=== PATIENT | male | born 1950 | race Caucasian/White ===

== ENCOUNTER → 2017-09-11 | Outpatient (CLI) | payer OTHER ==
[~2017-09-11] MED LIST: ACET250 PO; ALBIPROI; ALBU.083IS; ALBU.083IS IH; ALBU3IS INH; ALBU90OI INH; ALBU90OI6; ALBU90OI6 INH; ALBU90OI61 INH; ALPR.5 PO; ALPR.5CR PO; AMIT10; AMOCLA875 PO; AMOX875 PO; ASACOL HD800 MG; ASACOL HD800 MG PO; ASCO1ER PO; ASCO500; ASCO500 PO; ASPI325 PO; ASPI81CH PO; AZIT500 PO; Apriso0.375 GM; Apriso0.375 GM PO; BACL10 PO; BENADRYL25 MG PO; BISA10S; BUDE.25; BUDE.25 NEB; BUME2; BUME2 PO; CEFD300 PO; CEFP200 PO; CEPH500 PO; CHOL10002 PO; CIPR500 PO; CLOT1TC TOP; CODACE30 PO; COMBIVENT RESPIM4 GM; CRANBERRY PLUS1 EAC1 PO; CYAN1000 PO; Calmoseptine Oi71 GM TOP; Coumadin5 MG PO; DIAZ10; DIAZ10 PO; DIAZ2 PO; DIAZ5; DIAZ5 PO; DIPH50; DIPH50 PO; DOCSEN; DOCU100; DOCU100 PO; DOXE0.5 PO; DOXERCALCIFER0.5 MCG PO; DOXERCALCIFEROL1 MCG; DOXERCALCIFEROL1 MCG PO; DOXY100 PO; ERGO400 PO; ESCI10; ESCI10 PO; ESCI20 PO; ESCI5 PO; FERR325 PO; FISH1000 PO; FOLI1; FOLI1 PO; FURO20 PO; FURO40 PO; Ferosul325 MG PO; Ferrous Sulfat325 M2 PO; Ferus150 MG; Ferus150 MG PO; GABA300 PO; GLIP5; GUAI600T33 PO; GUAIFENESIN ER600 MG PO; HYDACE10B PO; HYDACE5; HYDACE5 PO; HYDACE7.5; HYDACE7.5 PO; HYDR-86 PO; IPRA.03NI; IPRAIS NEB; LAVAP17G PO; LEVFLO500 PO; LOPE2C; LOPE2C PO; LORA10 PO; LORA10ER; LORA10ER PO; LORA1SY PO; LOVA40; LOVA40 PO; LOVAZA; LOVAZA PO; Loradamed10 MG PO; Loratadine10 MG; MAGCHL64ER PO; MELA3; MESA400ER PO; METF500; METF500 PO; METF500C PO; METO10 PO; MIRALAX17 GM PO; MOMENI; MONT10T PO; MULVIT; MULVITA; MULVITA PO; MULVITMIND PO; Micro-K10 MEQ PO; NEBULIZERS IH; NITR100 PO; NITR100CA PO; NITR50; NITR50 PO; NYST100P; NYST100P TOP; NYST100TO; NYST100TO TOP; NYSTRITC TOP; Nitrofurantoin50 MG PO; OMEG1CAP30; OMEG1CAP30 PO; ONDA4; ONDA4 PO; ONDA4ODT MM; ONDA4ODT PO; ONDA4ODT SL; OXYC5; PIOG45 PO; POLY17UD PO; POTA10T PO; POTCHL10ER PO; PRED1; PREDNISONE; PROM25 PO; PSEU120ER; PSEU120ER PO; PSEU30; PSEU30 PO; RANI150; RXHYDACE PO; SACC250C; SENNP; SILSUL1TC TOP; SUDAFED; SULTRISS; Sudafed PO; Sudogest30 MG PO; Suppository1 EACH; TEMA15; TIOT18 INH; TRAZ50; TRAZ50 PO; VICODIN ES 7.51 EACH PO; Ventolin Soln3 ML INH; Vitamin C100 M1 PO; Vitamin C100 MG; WARF1; WARF1 PO; WARF2 PO; WARF4; WARF4 PO; WARF5; WARF5 PO; WARF6; WARF6 PO; WARFARIN PO; ZOLP5; [UNRECOGNIZED DRUG - CODE] PO; [UNRECOGNIZED DRUG - CODE] TOP; [UNRECOGNIZED DRUG - OTHER]; [UNRECOGNIZED DRUG - OTHER]; [UNRECOGNIZED DRUG - OTHER] PO; [UNRECOGNIZED DRUG - REMARK]; [UNRECOGNIZED DRUG - REMARK]; [UNRECOGNIZED DRUG - REMARK]; [UNRECOGNIZED DRUG - REMARK]
== END ==
LOC: LAB 15:20
DX: E11.42 Type 2 diabetes mellitus with diabetic polyneuropathy (principal)
CPT/HCPCS: 83036

== ENCOUNTER 2017-11-14 15:26 | Emergency (ER) | payer OTHER ==
[~2017-11-14] VITALS: Ht 175.3 cm; Wt 81.7 kg
[~2017-11-14 15:26] MED LIST changes: -ALBU90OI6; -ALPR.5 PO; -ALPR.5CR PO; -AMOX875 PO; -ASPI325 PO; -ASPI81CH PO; -AZIT500 PO; -BACL10 PO; -BUDE.25; -BUDE.25 NEB; -COMBIVENT RESPIM4 GM; -DIAZ5 PO; -DOCU100 PO; -DOXERCALCIFER0.5 MCG PO; -DOXERCALCIFEROL1 MCG PO; -Ferosul325 MG PO; -Ferrous Sulfat325 M2 PO; -GABA300 PO; -GUAIFENESIN ER600 MG PO; -LORA1SY PO; -METF500C PO; -MIRALAX17 GM PO; -ONDA4ODT PO; -SACC250C; -WARF1 PO; -WARFARIN PO; -[UNRECOGNIZED DRUG - CODE] PO
[2017-11-14 15:49] LABS: PCO2 Arterial 48.8 mmHg (35-45); PO2 Arterial 86.8 mmHg (80-100); pH Blood Arterial 7.37 (7.35-7.45)
[2017-11-14] MEDS ORDERED: ACET250 PO (16:07)
[2017-11-14] MEDS ORDERED: FURO40 PO (16:07)
[2017-11-14] MEDS ORDERED: DOXE0.5 PO (16:08)
[2017-11-14] MEDS ORDERED: ONDA4ODT (16:09)
[2017-11-14] MEDS ORDERED: ALBU90OI61 INH (16:11)
[2017-11-14] MEDS ORDERED: Apriso0.375 GM PO (16:12)
[2017-11-14] MEDS ORDERED: MONT10T PO (16:13)
[2017-11-14] MEDS ORDERED: GABA300 PO (16:14)
[2017-11-14] MEDS ORDERED: NITR100 PO (16:15)
[2017-11-14] MEDS ORDERED: BACL10 PO (16:16)
[2017-11-14] MEDS ORDERED: NYSTRITC TOP (16:17)
[2017-11-14 16:21] LABS: BASOPHILS ABSOLUTE AUTO 0.03 K/mm3 (0.00-0.23); BASOPHILS PERCENT AUTO 0 % (0-2); EOSINOPHILS ABSOLUTE AUTO 0.28 K/mm3 (0.00-0.68); EOSINOPHILS PERCENT AUTO 2 % (0-6); Hematocrit 30.9 % (37.0-53.0); Hemoglobin 8.8 g/dL (13.5-17.5); IMMATURE GRAN ABSOLUTE AUTO 0.15 K/mm3 (0.00-0.10); IMMATURE GRAN PERCENT AUTO 1 % (0-1); LYMPHOCYTES ABSOLUTE AUTO 1.24 K/mm3 (0.84-5.20); LYMPHOCYTES PERCENT AUTO 11 % (21-46); MONOCYTES ABSOLUTE AUTO 0.96 K/mm3 (0.16-1.47); MONOCYTES PERCENT AUTO 8 % (4-13); Mean Corpuscular HGB 23.9 pg (26.0-34.0); Mean Corpuscular HGB Conc 28.5 g/dL (31.5-36.5); Mean Corpuscular Volume 84 fL (80-100); Mean Platelet Volume 8.9 fL (9.1-12.4); NEUTROPHILS ABSOLUTE AUTO 9.14 K/mm3 (1.96-9.15); NEUTROPHILS PERCENT AUTO 77 % (41-73); Platelet Count 667 K/mm3 (150-400); RDW Coefficient Variation 16.4 % (11.7-14.2); RDW Standard Deviation 50.2 fL (35.1-46.3); Red Blood Cell Count 3.68 M/mm3 (4.30-5.90)
[2017-11-14 16:41] LABS: Alanine Aminotransfer (ALT/SGP 29 U/L (12-78); Albumin, Blood 2.8 g/dL (3.4-5.0); Albumin/Globulin Ratio 0.4 (0.8-1.8); Alk Phos 101 U/L (50-136); Anion Gap 7 mmol/L (6-16); Aspartate Aminotrans (AST/SGOT 37 U/L (12-37); Bilirubin, Total 0.4 mg/dL (0.1-1.0); Blood Urea Nitrogen 11 mg/dL (8-24); Bun/Creatinine Ratio 28.5 (12.0-20.0); CO2, Blood 30 mmol/L (21-32); Calcium, Blood 9.3 mg/dL (8.5-10.1); Chloride, Blood 101 mmol/L (98-108); Creatinine, Blood 0.39 mg/dL (0.60-1.20); Globulin, Blood 6.5 g/dL (2.2-4.0); Glomerular Filtration Rate >60 (60-); Glucose, Blood 90 mg/dL (70-99); Magnesium, Blood 2.3 mg/dL (1.6-2.4); Potassium, Blood 3.6 mmol/L (3.5-5.5); Sodium, Blood 138 mmol/L (136-145); Total Protein, Blood 9.3 g/dL (6.4-8.2); Troponin I <0.015 ng/mL (0.000-0.040)
[2017-11-14 16:56] LABS: Source, Urine Catheter
[2017-11-14 16:59] LABS: Appearance, Urine Cloudy (Clear); Bilirubin, Urine Neg (Neg); Blood, Urine 5+ (Neg); Color, Urine Yellow (P-Yellow); Glucose Qualitative, Urine Neg (Neg); Ketones, Urine Neg (Neg); Leukocyte Esterase, Urine 3+ (Neg); Nitrite, Urine Pos (Neg); Protein, Urine 2+ (Neg); Urobilinogen, Urine NORM (Normal)
[2017-11-14 17:11] LABS: White Blood Cells, Urine 50-100 /hpf (0-5)
[2017-11-14 17:12] LABS: Squamous Epithelial Cells Few /hpf (Few)
[2017-11-14 17:13] LABS: Bacteria Many /hpf
[2017-11-14] MEDS ORDERED: CEFP200 PO (17:36)
== END 2017-11-15 19:58 | disposition home or self-care (01) ==
LOC: ER 15:26
PROVIDERS: Emergency Medicine
DX: J44.1 Chronic obstructive pulmonary disease with (acute) exacerbation (principal); N39.0 Urinary tract infection, site not specified; E11.9 Type 2 diabetes mellitus without complications; D64.9 Anemia, unspecified; E78.5 Hyperlipidemia, unspecified; Z86.718 Personal history of other venous thrombosis and embolism; Z79.899 Other long term (current) drug therapy; Z79.84 Long term (current) use of oral hypoglycemic drugs; Z79.01 Long term (current) use of anticoagulants
CPT/HCPCS: 36415; 36600; 71045; 80053; 81001; 82803; 83605; 83735; 83880; 84484; 85025; 87077; 87086; 87186; 93005; 93010; 94644; 99283

== ENCOUNTER 2017-11-26 13:01 | Inpatient (IN) | payer OTHER ==
[~2017-11-26] VITALS: Ht 177.8 cm; Wt 91.2 kg
[~2017-11-26 13:01] MED LIST changes: +BACL10 PO; +DOXERCALCIFEROL1 MCG PO; +GABA300 PO; +METF500C PO; +ONDA4ODT PO
[2017-11-26 14:22] LABS: BASOPHILS ABSOLUTE AUTO 0.04 K/mm3 (0.00-0.23); BASOPHILS PERCENT AUTO 0 % (0-2); EOSINOPHILS ABSOLUTE AUTO 0.38 K/mm3 (0.00-0.68); EOSINOPHILS PERCENT AUTO 3 % (0-6); Hematocrit 25.8 % (37.0-53.0); Hemoglobin 6.8 g/dL (13.5-17.5); IMMATURE GRAN ABSOLUTE AUTO 0.05 K/mm3 (0.00-0.10); IMMATURE GRAN PERCENT AUTO 0 % (0-1); LYMPHOCYTES ABSOLUTE AUTO 1.05 K/mm3 (0.84-5.20); LYMPHOCYTES PERCENT AUTO 9 % (21-46); MONOCYTES ABSOLUTE AUTO 0.79 K/mm3 (0.16-1.47); MONOCYTES PERCENT AUTO 7 % (4-13); Mean Corpuscular HGB 23.8 pg (26.0-34.0); Mean Corpuscular HGB Conc 26.4 g/dL (31.5-36.5); Mean Platelet Volume 9.1 fL (9.1-12.4); NEUTROPHILS PERCENT AUTO 80 % (41-73); Platelet Count 532 K/mm3 (150-400); RDW Coefficient Variation 18.8 % (11.7-14.2); Red Blood Cell Count 2.86 M/mm3 (4.30-5.90); White Blood Cell Count 11.31 K/mm3 (4.00-11.30)
[2017-11-26 14:23] LABS: Mean Corpuscular Volume 90 fL (80-100)
[2017-11-26 14:40] LABS: Alanine Aminotransfer (ALT/SGP 17 U/L (12-78); Albumin, Blood 2.9 g/dL (3.4-5.0); Albumin/Globulin Ratio 0.5 (0.8-1.8); Alk Phos 65 U/L (50-136); Anion Gap 5 mmol/L (6-16); Aspartate Aminotrans (AST/SGOT 15 U/L (12-37); Bilirubin, Total 0.2 mg/dL (0.1-1.0); Blood Urea Nitrogen 14 mg/dL (8-24); CO2, Blood 35 mmol/L (21-32); Calcium, Blood 8.7 mg/dL (8.5-10.1); Chloride, Blood 99 mmol/L (98-108); Creatinine, Blood 0.37 mg/dL (0.60-1.20); Globulin, Blood 5.4 g/dL (2.2-4.0); Glomerular Filtration Rate >60 (60-); Glucose, Blood 122 mg/dL (70-99); Potassium, Blood 3.4 mmol/L (3.5-5.5); Sodium, Blood 139 mmol/L (136-145); Total Protein, Blood 8.3 g/dL (6.4-8.2)
[2017-11-27 06:10] LABS: Hematocrit 27.7 % (37.0-53.0); Hemoglobin 7.9 g/dL (13.5-17.5); Mean Corpuscular HGB Conc 28.5 g/dL (31.5-36.5); Mean Corpuscular Volume 88 fL (80-100); Mean Platelet Volume 9.1 fL (9.1-12.4); Platelet Count 457 K/mm3 (150-400); RDW Coefficient Variation 18.1 % (11.7-14.2); RDW Standard Deviation 54.4 fL (35.1-46.3); Red Blood Cell Count 3.16 M/mm3 (4.30-5.90); White Blood Cell Count 7.37 K/mm3 (4.00-11.30)
[2017-11-27 06:26] LABS: Anion Gap 3 mmol/L (6-16); Blood Urea Nitrogen 10 mg/dL (8-24); Bun/Creatinine Ratio 33.2 (12.0-20.0); CO2, Blood 32 mmol/L (21-32); Calcium, Blood 8.2 mg/dL (8.5-10.1); Chloride, Blood 106 mmol/L (98-108); Glomerular Filtration Rate >60 (60-); Glucose, Blood 81 mg/dL (70-99); Potassium, Blood 4.3 mmol/L (3.5-5.5); Sodium, Blood 141 mmol/L (136-145)
[2017-11-27 08:55] LABS: Percent Saturation 7.8 % (20.0-50.0)
[2017-11-27 11:45] LABS: Source, Urine Catheter
[2017-11-27 11:56] LABS: Bilirubin, Urine Neg (Neg); Blood, Urine 5+ (Neg); Glucose Qualitative, Urine Neg (Neg); Ketones, Urine Neg (Neg); Leukocyte Esterase, Urine 3+ (Neg); Nitrite, Urine Pos (Neg); Protein, Urine 3+ (Neg); Urobilinogen, Urine NORM (Normal)
[2017-11-27 13:24] LABS: Appearance, Urine Cloudy (Clear); Color, Urine Yellow (P-Yellow)
[2017-11-27 13:26] LABS: Bacteria Many /hpf; Red Blood Cells, Urine TNTC /hpf (0-2); Squamous Epithelial Cells Not Seen /hpf (Few); White Blood Cells, Urine TNTC /hpf (0-5)
[2017-11-28 05:01] LABS: Hemoglobin 7.6 g/dL (13.5-17.5); Mean Corpuscular HGB 24.4 pg (26.0-34.0); Mean Corpuscular HGB Conc 28.1 g/dL (31.5-36.5); Mean Corpuscular Volume 87 fL (80-100); Mean Platelet Volume 9.3 fL (9.1-12.4); Platelet Count 464 K/mm3 (150-400); RDW Coefficient Variation 18.9 % (11.7-14.2); RDW Standard Deviation 56.5 fL (35.1-46.3); Red Blood Cell Count 3.11 M/mm3 (4.30-5.90); White Blood Cell Count 7.43 K/mm3 (4.00-11.30)
[2017-11-28 05:22] LABS: Anion Gap 6 mmol/L (6-16); Blood Urea Nitrogen 12 mg/dL (8-24); CO2, Blood 29 mmol/L (21-32); Calcium, Blood 8.8 mg/dL (8.5-10.1); Chloride, Blood 108 mmol/L (98-108); Glomerular Filtration Rate >60 (60-); Glucose, Blood 98 mg/dL (70-99); Sodium, Blood 143 mmol/L (136-145)
[2017-11-28 17:52] LABS: International Normalized Ratio 1.8; Prothrombin Time Results 19.1 Sec (9.7-11.5)
[2017-11-29 05:16] LABS: Hematocrit 29.9 % (37.0-53.0); Hemoglobin 8.4 g/dL (13.5-17.5); Mean Corpuscular HGB Conc 28.1 g/dL (31.5-36.5); Mean Corpuscular Volume 89 fL (80-100); Platelet Count 433 K/mm3 (150-400); RDW Standard Deviation 60.2 fL (35.1-46.3); Red Blood Cell Count 3.36 M/mm3 (4.30-5.90); White Blood Cell Count 6.02 K/mm3 (4.00-11.30)
[2017-11-29 05:34] LABS: International Normalized Ratio 1.79
[2017-11-30 05:11] LABS: International Normalized Ratio 3.06; Prothrombin Time Results 32.9 Sec (9.7-11.5)
[2017-12-01 05:31] LABS: International Normalized Ratio 3.34; Prothrombin Time Results 36.1 Sec (9.7-11.5)
== END 2017-12-01 12:40 | disposition home or self-care (01) | DRG 871 ==
LOC: ER 13:01 → PCU 15:48 → MEDS 15:48 → PCU 16:34 → MEDS 11-27 18:36
PROVIDERS: Emergency Medicine; Internal Medicine
DX: A41.9 Sepsis, unspecified organism (principal); G82.50 Quadriplegia, unspecified; J18.9 Pneumonia, unspecified organism; J96.01 Acute respiratory failure with hypoxia; Z96.0 Presence of urogenital implants; R65.20 Severe sepsis without septic shock; E87.6 Hypokalemia; D63.8 Anemia in other chronic diseases classified elsewhere; E11.9 Type 2 diabetes mellitus without complications; E78.5 Hyperlipidemia, unspecified; J44.9 Chronic obstructive pulmonary disease, unspecified; G47.33 Obstructive sleep apnea (adult) (pediatric); F32.9 Major depressive disorder, single episode, unspecified; Z86.718 Personal history of other venous thrombosis and embolism; T83.511D Infection and inflammatory reaction due to indwelling urethral catheter, subsequent encounter; Z88.2 Allergy status to sulfonamides; Z88.8 Allergy status to other drugs, medicaments and biological substances; Z88.1 Allergy status to other antibiotic agents; Z91.040 Latex allergy status; Z79.01 Long term (current) use of anticoagulants; Z79.84 Long term (current) use of oral hypoglycemic drugs; Z79.899 Other long term (current) drug therapy; Z99.3 Dependence on wheelchair
CPT/HCPCS: 36415; 36430; 71046; 80048; 80053; 81001; 82272; 82728; 82947; 83540; 83550; 83605; 83880; 85025; 85027; 85610; 86850; 86870; 86900; 86901; 86902; 86922; 87040; 87086; 87186; 93005; 93010; 94640; 94644; 94660; 94762; 96374; 99285; C9113; J0456; J0696; J2543; J2916; J7030; J7050; P9016

== ENCOUNTER 2018-01-19 11:35 | Inpatient (IN) | payer OTHER ==
[~2018-01-19] VITALS: Ht 175.3 cm; Wt 91.2 kg
[~2018-01-19 11:35] MED LIST changes: +DOXERCALCIFER0.5 MCG PO; -DOXERCALCIFEROL1 MCG PO; +WARFARIN PO
[2018-01-19 12:34] LABS: BASOPHILS ABSOLUTE AUTO 0.03 K/mm3 (0.00-0.23); BASOPHILS PERCENT AUTO 0 % (0-2); EOSINOPHILS PERCENT AUTO 3 % (0-6); Hematocrit 32.3 % (37.0-53.0); Hemoglobin 8.9 g/dL (13.5-17.5); IMMATURE GRAN ABSOLUTE AUTO 0.05 K/mm3 (0.00-0.10); IMMATURE GRAN PERCENT AUTO 1 % (0-1); LYMPHOCYTES ABSOLUTE AUTO 0.67 K/mm3 (0.84-5.20); LYMPHOCYTES PERCENT AUTO 9 % (21-46); MONOCYTES ABSOLUTE AUTO 0.54 K/mm3 (0.16-1.47); MONOCYTES PERCENT AUTO 7 % (4-13); Mean Corpuscular HGB 25.6 pg (26.0-34.0); Mean Corpuscular HGB Conc 27.6 g/dL (31.5-36.5); Mean Corpuscular Volume 93 fL (80-100); Mean Platelet Volume 9.3 fL (9.1-12.4); NEUTROPHILS ABSOLUTE AUTO 6.42 K/mm3 (1.96-9.15); NEUTROPHILS PERCENT AUTO 81 % (41-73); Platelet Count 445 K/mm3 (150-400); RDW Coefficient Variation 18.5 % (11.7-14.2); RDW Standard Deviation 61.3 fL (35.1-46.3); Red Blood Cell Count 3.47 M/mm3 (4.30-5.90); White Blood Cell Count 7.91 K/mm3 (4.00-11.30)
[2018-01-19 12:47] LABS: International Normalized Ratio 3.96; Prothrombin Time Results 37.7 Sec (9.7-11.5)
[2018-01-19 12:56] LABS: Alanine Aminotransfer (ALT/SGP 13 U/L (12-78); Albumin, Blood 3.3 g/dL (3.4-5.0); Albumin/Globulin Ratio 0.6 (0.8-1.8); Alk Phos 64 U/L (50-136); Anion Gap 5 mmol/L (6-16); Aspartate Aminotrans (AST/SGOT 22 U/L (12-37); Bilirubin, Total 0.4 mg/dL (0.1-1.0); Blood Urea Nitrogen 16 mg/dL (8-24); Bun/Creatinine Ratio 42.1 (12.0-20.0); CO2, Blood 35 mmol/L (21-32); Calcium, Blood 8.3 mg/dL (8.5-10.1); Chloride, Blood 98 mmol/L (98-108); Creatinine, Blood 0.38 mg/dL (0.60-1.20); Globulin, Blood 5.5 g/dL (2.2-4.0); Glomerular Filtration Rate >60 (60-); Glucose, Blood 91 mg/dL (70-99); Potassium, Blood 4.3 mmol/L (3.5-5.5); Sodium, Blood 138 mmol/L (136-145); Total Protein, Blood 8.8 g/dL (6.4-8.2); Troponin I <0.015 ng/mL (0.000-0.040)
[2018-01-19 13:49] LABS: PCO2 Arterial 64.5 mmHg (35-45); PO2 Arterial 74.4 mmHg (80-100); pH Blood Arterial 7.34 (7.35-7.45)
[2018-01-19 14:16] LABS: Source, Urine Catheter
[2018-01-19 14:25] LABS: Appearance, Urine Cloudy (Clear); Bilirubin, Urine Neg (Neg); Blood, Urine 5+ (Neg); Color, Urine Yellow (P-Yellow); Glucose Qualitative, Urine Neg (Neg); Ketones, Urine Neg (Neg); Leukocyte Esterase, Urine 3+ (Neg); Nitrite, Urine Pos (Neg); Protein, Urine 3+ (Neg); Specific Gravity, Urine 1.015 (1.003-1.022); Urobilinogen, Urine NORM (Normal)
[2018-01-19 15:00] LABS: Red Blood Cells, Urine TNTC /hpf (0-2); White Blood Cells, Urine TNTC /hpf (0-5)
[2018-01-19 15:01] LABS: Bacteria Not Seen /hpf; Squamous Epithelial Cells Not Seen /hpf (Few)
[2018-01-19] MEDS ORDERED: [UNRECOGNIZED DRUG - CODE] PO (17:27)
[2018-01-20 04:40] LABS: PCO2 Arterial 68.7 mmHg (35-45); pH Blood Arterial 7.35 (7.35-7.45)
[2018-01-20 05:40] LABS: BASOPHILS ABSOLUTE AUTO 0.02 K/mm3 (0.00-0.23); BASOPHILS PERCENT AUTO 0 % (0-2); EOSINOPHILS ABSOLUTE AUTO 0.18 K/mm3 (0.00-0.68); EOSINOPHILS PERCENT AUTO 3 % (0-6); Hematocrit 29.7 % (37.0-53.0); Hemoglobin 8.3 g/dL (13.5-17.5); IMMATURE GRAN ABSOLUTE AUTO 0.03 K/mm3 (0.00-0.10); IMMATURE GRAN PERCENT AUTO 1 % (0-1); LYMPHOCYTES ABSOLUTE AUTO 0.43 K/mm3 (0.84-5.20); LYMPHOCYTES PERCENT AUTO 7 % (21-46); MONOCYTES PERCENT AUTO 8 % (4-13); Mean Corpuscular HGB 26.5 pg (26.0-34.0); Mean Corpuscular HGB Conc 27.9 g/dL (31.5-36.5); Mean Corpuscular Volume 95 fL (80-100); Mean Platelet Volume 9.2 fL (9.1-12.4); NEUTROPHILS ABSOLUTE AUTO 4.81 K/mm3 (1.96-9.15); NEUTROPHILS PERCENT AUTO 81 % (41-73); Platelet Count 399 K/mm3 (150-400); RDW Coefficient Variation 18.2 % (11.7-14.2); RDW Standard Deviation 62.9 fL (35.1-46.3); Red Blood Cell Count 3.13 M/mm3 (4.30-5.90); White Blood Cell Count 5.97 K/mm3 (4.00-11.30)
[2018-01-20 06:01] LABS: Alanine Aminotransfer (ALT/SGP 14 U/L (12-78); Albumin/Globulin Ratio 0.6 (0.8-1.8); Alk Phos 63 U/L (50-136); Anion Gap 6 mmol/L (6-16); Aspartate Aminotrans (AST/SGOT 13 U/L (12-37); Bilirubin, Total 0.4 mg/dL (0.1-1.0); Blood Urea Nitrogen 16 mg/dL (8-24); Bun/Creatinine Ratio 36.4 (12.0-20.0); CO2, Blood 36 mmol/L (21-32); Calcium, Blood 8.2 mg/dL (8.5-10.1); Chloride, Blood 98 mmol/L (98-108); Creatinine, Blood 0.44 mg/dL (0.60-1.20); Glomerular Filtration Rate >60 (60-); Glucose, Blood 97 mg/dL (70-99); Potassium, Blood 3.6 mmol/L (3.5-5.5); Sodium, Blood 140 mmol/L (136-145)
[2018-01-20 06:02] LABS: Prothrombin Time Results 43.6 Sec (9.7-11.5)
[2018-01-20 06:04] LABS: International Normalized Ratio 4.62
[2018-01-21 05:29] LABS: Hematocrit 27.3 % (37.0-53.0); Hemoglobin 7.4 g/dL (13.5-17.5); Mean Corpuscular HGB 25.3 pg (26.0-34.0); Mean Corpuscular HGB Conc 27.1 g/dL (31.5-36.5); Mean Corpuscular Volume 94 fL (80-100); Mean Platelet Volume 9.3 fL (9.1-12.4); Platelet Count 396 K/mm3 (150-400); RDW Coefficient Variation 17.5 % (11.7-14.2); RDW Standard Deviation 60.2 fL (35.1-46.3); Red Blood Cell Count 2.92 M/mm3 (4.30-5.90); White Blood Cell Count 8.03 K/mm3 (4.00-11.30)
[2018-01-21 05:47] LABS: International Normalized Ratio 3.05; Prothrombin Time Results 29.5 Sec (9.7-11.5)
[2018-01-21 05:49] LABS: Anion Gap 5 mmol/L (6-16); Blood Urea Nitrogen 19 mg/dL (8-24); Bun/Creatinine Ratio 38.7 (12.0-20.0); CO2, Blood 36 mmol/L (21-32); Calcium, Blood 8.3 mg/dL (8.5-10.1); Chloride, Blood 100 mmol/L (98-108); Creatinine, Blood 0.49 mg/dL (0.60-1.20); Glomerular Filtration Rate >60 (60-); Glucose, Blood 123 mg/dL (70-99); Potassium, Blood 3.9 mmol/L (3.5-5.5); Sodium, Blood 141 mmol/L (136-145)
[2018-01-21] MEDS ORDERED: WARF6 PO (10:52)
[2018-01-21] MEDS ORDERED: ALPR.5 PO (10:52)
[2018-01-21] MEDS ORDERED: DIAZ5 PO (10:53)
[2018-01-21 15:27] LABS: Hematocrit 29.5 % (37.0-53.0)
[2018-01-21] MEDS ORDERED: FOLI1 PO (16:11)
[2018-01-21] MEDS ORDERED: METF500C PO (16:14)
[2018-01-22 05:37] LABS: International Normalized Ratio 2.39; Prothrombin Time Results 23.4 Sec (9.7-11.5)
[2018-01-22 05:52] LABS: Albumin, Blood 2.8 g/dL (3.4-5.0); Anion Gap 6 mmol/L (6-16); Blood Urea Nitrogen 18 mg/dL (8-24); Bun/Creatinine Ratio 41.7 (12.0-20.0); CO2, Blood 34 mmol/L (21-32); Calcium, Blood 8.5 mg/dL (8.5-10.1); Chloride, Blood 101 mmol/L (98-108); Creatinine, Blood 0.43 mg/dL (0.60-1.20); Glomerular Filtration Rate >60 (60-); Glucose, Blood 116 mg/dL (70-99); Potassium, Blood 3.6 mmol/L (3.5-5.5); Sodium, Blood 141 mmol/L (136-145)
[2018-01-22 09:06] LABS: Stool Occult Blood Guaiac 1 Pos (Neg)
[2018-01-22 09:28] LABS: Hematocrit 28.4 % (37.0-53.0); Hemoglobin 7.6 g/dL (13.5-17.5); Mean Corpuscular HGB 25.7 pg (26.0-34.0); Mean Corpuscular HGB Conc 26.8 g/dL (31.5-36.5); Mean Corpuscular Volume 96 fL (80-100); Mean Platelet Volume 9.3 fL (9.1-12.4); Platelet Count 374 K/mm3 (150-400); RDW Coefficient Variation 17.3 % (11.7-14.2); RDW Standard Deviation 60.5 fL (35.1-46.3); Red Blood Cell Count 2.96 M/mm3 (4.30-5.90); White Blood Cell Count 6.82 K/mm3 (4.00-11.30)
[2018-01-22] MEDS ORDERED: DOCU100 PO (13:21)
[2018-01-22] MEDS ORDERED: ALBU3IS INH (13:24)
[2018-01-22] MEDS ORDERED: SACC250C (13:26)
[2018-01-22] MEDS ORDERED: AMOX875 PO (13:28)
[2018-01-22] MEDS ORDERED: AZIT500 PO (13:28)
[2018-01-22] MEDS ORDERED: FURO40 PO (13:29)
[2018-01-22] MEDS ORDERED: Ferosul325 MG PO (13:32)
== END 2018-01-22 14:23 | disposition home health service (06) | DRG 871 ==
LOC: ER 11:35 → PCU 11:36 → MEDS 17:17 → PCU 17:18 → MEDS 18:00 → ENPENDDIS 01-22 10:35 → MEDS 01-22 14:23
PROVIDERS: Internal Medicine; Pharmacist; Physician Assistant
PROC: 5A09357 Assistance with Respiratory Ventilation, Less than 24 Consecutive Hours, Continuous Positive Airway Pressure (ICD-10-PCS; principal; 2018-01-19)
PROC: 3E0134Z Introduction of Serum, Toxoid and Vaccine into Subcutaneous Tissue, Percutaneous Approach (ICD-10-PCS; 2018-01-22)
DX: A41.9 Sepsis, unspecified organism (principal); J18.9 Pneumonia, unspecified organism; J96.22 Acute and chronic respiratory failure with hypercapnia; J96.21 Acute and chronic respiratory failure with hypoxia; G82.50 Quadriplegia, unspecified; J44.0 Chronic obstructive pulmonary disease with (acute) lower respiratory infection; J84.9 Interstitial pulmonary disease, unspecified; I50.32 Chronic diastolic (congestive) heart failure; R65.20 Severe sepsis without septic shock; R79.1 Abnormal coagulation profile; G47.33 Obstructive sleep apnea (adult) (pediatric); E11.9 Type 2 diabetes mellitus without complications; Z23 Encounter for immunization; N31.9 Neuromuscular dysfunction of bladder, unspecified; E78.5 Hyperlipidemia, unspecified; F32.9 Major depressive disorder, single episode, unspecified; G47.00 Insomnia, unspecified; E66.9 Obesity, unspecified; D50.9 Iron deficiency anemia, unspecified; Z86.718 Personal history of other venous thrombosis and embolism; Z91.19 Patient's noncompliance with other medical treatment and regimen; Z68.28 Body mass index [BMI] 28.0-28.9, adult
CPT/HCPCS: 36415; 36600; 71046; 80048; 80053; 80069; 81001; 82272; 82728; 82803; 82947; 83540; 83550; 83605; 83880; 84145; 84484; 85014; 85018; 85025; 85027; 85610; 85730; 87040; 87077; 87086; 87186; 93005; 93010; 93306; 94640; 94644; 94660; 94762; 96374; 99285; J0456; J1940; J2543; J7030; J7050

== ENCOUNTER 2019-06-24 09:25 | Day surgery (SDC) | payer OTHER ==
[~2019-06-24 09:25] MED LIST changes: +ALBU90OI6; +ALPR.5 PO; +ALPR.5CR PO; +AMOX875 PO; +ASPI325 PO; +ASPI81CH PO; +AZIT500 PO; +BUDE.25; +BUDE.25 NEB; +COMBIVENT RESPIM4 GM; +DIAZ5 PO; +DOCU100 PO; +DOXERCALCIFEROL1 MCG PO; +Ferosul325 MG PO; +Ferrous Sulfat325 M2 PO; +GUAIFENESIN ER600 MG PO; +LORA1SY PO; +MIRALAX17 GM PO; +SACC250C; +WARF1 PO; +[UNRECOGNIZED DRUG - CODE] PO
== END 2019-06-24 13:30 | disposition home or self-care (01) ==
LOC: CT 09:25
DX: J98.4 Other disorders of lung (principal); J43.9 Emphysema, unspecified; J96.10 Chronic respiratory failure, unspecified whether with hypoxia or hypercapnia; Z87.891 Personal history of nicotine dependence; Z79.82 Long term (current) use of aspirin; Z79.51 Long term (current) use of inhaled steroids; Z79.899 Other long term (current) drug therapy; Z88.2 Allergy status to sulfonamides; Z88.8 Allergy status to other drugs, medicaments and biological substances; Z91.040 Latex allergy status; Z91.048 Other nonmedicinal substance allergy status; Z99.89 Dependence on other enabling machines and devices
CPT/HCPCS: 32405; 77012; 88305; 88312; 88313

== ENCOUNTER → 2019-09-24 | Outpatient (CLI) | payer OTHER ==
[~2019-09-24] MED LIST changes: -ASPI81CH PO; +Aspir 8181 MG PO; +BACLOFEN5 MG PO; +ESCITALOPRAM OXA5 MG PO; +Loratadine10 MG PO
[2019-09-24 16:23] LABS: Source, Urine Catheter
[2019-09-24 17:35] LABS: Appearance, Urine Cloudy (Clear); Bilirubin, Urine Neg (Neg); Blood, Urine 5+ (Neg); Color, Urine Yellow (P-Yellow); Glucose Qualitative, Urine Neg (Neg); Ketones, Urine Neg (Neg); Leukocyte Esterase, Urine 3+ (Neg); Nitrite, Urine Pos (Neg); Protein, Urine 2+ (Neg); Urobilinogen, Urine NORM (Normal)
[2019-09-24 18:22] LABS: Bacteria Many /hpf; Red Blood Cells, Urine 50-100 /hpf (0-2); Squamous Epithelial Cells Not Seen /hpf (Few); White Blood Cells, Urine TNTC /hpf (0-5)
== END ==
LOC: OLS 16:22 → LAB SHORT 16:22
PROVIDERS: Family Medicine
DX: N39.0 Urinary tract infection, site not specified (principal)
CPT/HCPCS: 81001; 87086

== ENCOUNTER → 2020-03-09 | Outpatient (CLI) | payer OTHER ==
[2020-03-09 17:14] LABS: Source, Urine Clean Catch
[2020-03-09 19:59] LABS: Appearance, Urine Turbid (Clear); Blood, Urine 5+ (Neg); Color, Urine Yellow (P-Yellow); Glucose Qualitative, Urine Neg (Neg); Ketones, Urine 1+ (Neg); Leukocyte Esterase, Urine 3+ (Neg); Nitrite, Urine Pos (Neg); Protein, Urine 3+ (Neg); Urobilinogen, Urine 2+ (Normal)
[2020-03-09 20:06] LABS: Bilirubin, Urine 1+ (Neg)
[2020-03-09 20:09] LABS: Red Blood Cells, Urine 50-100 /hpf (0-2); Squamous Epithelial Cells Rare /hpf (Few); White Blood Cells, Urine TNTC /hpf (0-5)
[2020-03-09 20:11] LABS: Amorphous Heavy (0-Heavy); Bacteria Mod /hpf
== END | disposition home or self-care (01) ==
LOC: LAB 17:09 → LAB SHORT 17:09
PROVIDERS: Family Medicine
DX: N31.9 Neuromuscular dysfunction of bladder, unspecified (principal); R33.8 Other retention of urine
CPT/HCPCS: 81001; 87077; 87086; 87147; 87186

== ENCOUNTER 2020-04-07 11:51 | Inpatient (IN) | payer OTHER | END 2020-04-13 15:40 | disposition home health service (06) | DRG 698 | LOC: ER 11:51 → MEDS 11:52 | PROVIDERS: ADMIT Internal Medicine | DX: T83.518A Infection and inflammatory reaction due to other urinary catheter, initial encounter (principal); G82.50 Quadriplegia, unspecified; N39.0 Urinary tract infection, site not specified; I50.32 Chronic diastolic (congestive) heart failure; J84.9 Interstitial pulmonary disease, unspecified; J96.11 Chronic respiratory failure with hypoxia; J96.12 Chronic respiratory failure with hypercapnia; E11.9 Type 2 diabetes mellitus without complications; E78.5 Hyperlipidemia, unspecified; E87.6 Hypokalemia; F17.210 Nicotine dependence, cigarettes, uncomplicated; F32.9 Major depressive disorder, single episode, unspecified; G47.00 Insomnia, unspecified; G47.33 Obstructive sleep apnea (adult) (pediatric); J44.9 Chronic obstructive pulmonary disease, unspecified; N31.9 Neuromuscular dysfunction of bladder, unspecified; Z86.718 Personal history of other venous thrombosis and embolism; Z87.442 Personal history of urinary calculi; A49.01 Methicillin susceptible Staphylococcus aureus infection, unspecified site; T50.2X5A Adverse effect of carbonic-anhydrase inhibitors, benzothiadiazides and other diuretics, initial encounter; G70.9 Myoneural disorder, unspecified; Z99.81 Dependence on supplemental oxygen; Z74.01 Bed confinement status ==

== ENCOUNTER → 2020-05-31 | Outpatient (CLI) | payer OTHER ==
[~2020-05-31] MED LIST changes: +APRISO0.375 GM PO; +BUDE.25 INH; -ESCITALOPRAM OXA5 MG PO; +FLUT.05NI; +IPRAT-ALBUT 0.5-3 ML INH; +MENTHOL-CAMPHO120 GM TOP; +NYSTOP15 GM TOP; +XANAX XR0.5 MG PO
[2020-05-31 13:48] LABS: Appearance, Urine Turbid (Clear); Bilirubin, Urine Neg (Neg); Blood, Urine 5+ (Neg); Color, Urine Amber (P-Yellow); Glucose Qualitative, Urine Neg (Neg); Ketones, Urine Neg (Neg); Leukocyte Esterase, Urine 3+ (Neg); Nitrite, Urine Pos (Neg); Protein, Urine 3+ (Neg); Specific Gravity, Urine 1.015 (1.003-1.022); Urobilinogen, Urine NORM (Normal); pH, Urine 6.5 (5.0-8.0)
[2020-05-31 14:09] LABS: Amorphous Heavy (0-Heavy); Bacteria Many /hpf; Red Blood Cells, Urine TNTC /hpf (0-2); Renal Epithelial Rare /hpf (0-Rare); Squamous Epithelial Cells Rare /hpf (Few); Transitional Epithelial Cells Few /hpf (0-Rare); White Blood Cells, Urine TNTC /hpf (0-5)
== END | disposition home or self-care (01) ==
LOC: LAB SHORT 12:31 → LAB 12:31
PROVIDERS: Family Medicine
DX: N18.9 Chronic kidney disease, unspecified (principal); Z87.440 Personal history of urinary (tract) infections
CPT/HCPCS: 81001; 87077; 87086; 87186

== ENCOUNTER 2020-11-30 10:58 | Inpatient (IN) | payer MEDICARE, OTHER ==
[~2020-11-30] VITALS: Ht 177.8 cm; Wt 83.9 kg
[~2020-11-30 10:58] MED LIST changes: -APRISO0.375 GM PO; -Aspir 8181 MG PO; -IPRAT-ALBUT 0.5-3 ML INH; -Loratadine10 MG PO
[2020-11-30 12:42] LABS: Source, Urine Catheter
[2020-11-30 12:49] LABS: Bilirubin, Urine Neg (Neg); Blood, Urine 5+ (Neg); Color, Urine Red (P-Yellow); Glucose Qualitative, Urine Neg (Neg); Ketones, Urine 1+ (Neg); Leukocyte Esterase, Urine 3+ (Neg); Nitrite, Urine Pos (Neg); Protein, Urine 3+ (Neg); Urobilinogen, Urine 1+ (Normal)
[2020-11-30 13:06] LABS: U Amphetamine Screen Not Detected; U Barbituate Screen Not Detected; U Benzodiazapine Screen DETECTED; U Cannabinoids Screen Not Detected; U Cocaine Screen Not Detected; U Methadone Screen Not Detected; U Methamphetamine Screen Not Detected; U Opiates Screen Not Detected; U Phencyclidine Screen Not Detected
[2020-11-30 13:07] LABS: U Buprenorphine Screen Not Detected; U Oxycodone Screen Not Detected; U Propoxyphene Screen Not Detected
[2020-11-30 13:08] LABS: BASOPHILS ABSOLUTE AUTO 0.04 K/mm3 (0.00-0.23); BASOPHILS PERCENT AUTO 1 % (0-2); EOSINOPHILS ABSOLUTE AUTO 0.19 K/mm3 (0.00-0.68); EOSINOPHILS PERCENT AUTO 3 % (0-6); Hematocrit 43.3 % (37.0-53.0); Hemoglobin 12.3 g/dL (13.5-17.5); IMMATURE GRAN ABSOLUTE AUTO 0.05 K/mm3 (0.00-0.10); IMMATURE GRAN PERCENT AUTO 1 % (0-1); LYMPHOCYTES ABSOLUTE AUTO 1.01 K/mm3 (0.84-5.20); LYMPHOCYTES PERCENT AUTO 13 % (21-46); MONOCYTES ABSOLUTE AUTO 0.44 K/mm3 (0.16-1.47); MONOCYTES PERCENT AUTO 6 % (4-13); Mean Corpuscular HGB 26.1 pg (26.0-34.0); Mean Corpuscular HGB Conc 28.4 g/dL (31.5-36.5); Mean Corpuscular Volume 92 fL (80-100); Mean Platelet Volume 9.2 fL (9.1-12.4); NEUTROPHILS ABSOLUTE AUTO 5.85 K/mm3 (1.96-9.15); NEUTROPHILS PERCENT AUTO 77 % (41-73); Platelet Count 318 K/mm3 (150-400); RDW Coefficient Variation 15.9 % (11.7-14.2); Red Blood Cell Count 4.72 M/mm3 (4.30-5.90); White Blood Cell Count 7.58 K/mm3 (4.00-11.30)
[2020-11-30 13:09] LABS: Appearance, Urine Bloody (Clear)
[2020-11-30 13:12] LABS: Bacteria Many /hpf; Red Blood Cells, Urine TNTC /hpf (0-2); Squamous Epithelial Cells Not Seen /hpf (Few); White Blood Cells, Urine TNTC /hpf (0-5)
[2020-11-30 13:27] LABS: Alanine Aminotransfer (ALT/SGP 13 U/L (12-78); Albumin, Blood 3.3 g/dL (3.4-5.0); Albumin/Globulin Ratio 0.6 (0.8-1.8); Alk Phos 83 U/L (50-136); Anion Gap 3 mmol/L (6-16); Aspartate Aminotrans (AST/SGOT 7 U/L (12-37); Bilirubin, Total 0.5 mg/dL (0.1-1.0); Blood Urea Nitrogen 15 mg/dL (8-24); Bun/Creatinine Ratio 22.6 (12.0-20.0); CO2, Blood 30 mmol/L (21-32); Calcium, Blood 8.7 mg/dL (8.5-10.1); Chloride, Blood 106 mmol/L (98-108); Creatinine, Blood 0.66 mg/dL (0.60-1.20); Globulin, Blood 5.3 g/dL (2.2-4.0); Glomerular Filtration Rate >60 (60-); Glucose, Blood 98 mg/dL (70-99); Sodium, Blood 139 mmol/L (136-145); Total Protein, Blood 8.6 g/dL (6.4-8.2)
[2020-11-30 13:32] LABS: Base Excess Venous -0.3 mmol/L; Bicarbonate Venous 23.5 mmol/L (24.0-30.0); PCO2 Venous 52.5 mmHg (38-42); PO2 Venous 188 mmHg (38-42)
[2020-11-30 13:39] LABS: SARS-Cov-2 (COVID-19) PCR, MMC NEGATIVE (NEGATIVE)
--- NOTE | 2020-11-30 18:01 | NUR ---
PATIENT IS DIRTY, HIS SKIN IS SCALING. A BEDBATH WAS GIVEN ON ADMIT. SUPRAPUPIC CATHETER IS IN PLACE ON ADMIT, INTERVENTION SPECIALIST NOTIFIED. PATIENT ARRIVED ON THE UNIT WITH HIS HOME BIPAP THAT IS DIRTY, RT IS SETTING UP A HOSPITAL BIPAP FOR THE PATIENT TO USE ALONG WITH CONTINUOUS BIOX. THE PATIENT WAS REPOSTIONED WITH PILLOWS UNDER HIS HIPS. PATIENT STATES THAT HE IS BEDBOUND AT BASELINE AND ONLY GETS INTO A WHEELCHAIR FOR DR. MANN. PATIENT STATES THAT HE HAS TWO CAREGIVERS A DAY, ONE IN THE MORNING AND EVENING. THE PATIENT'S BLE ARE EDEMATOUS. THIS RN WAS COMPLETING THE ADMISSION AND THE PATIENT WAS CONCERNED THAT THERE WAS TOO MANY PERSONAL QUESTIONS ASKED ABOUT HIS LIVING CONDITION AND WHAT HE IS ABLE TO DO AT HOME OUT OF FEAR OF BEING MOVED TO A CARE FACILITY. THE PATIENT STATED THAT HE WOULD LIKE TO FILL OUT AN ADVANCE DIRECTIVE AND GET MORE INDFORMATION. NO C/O PAIN. WILL COTNINUE TO MONITOR
--- NOTE | 2020-11-30 19:15 | NUR ---
ASSUMED CARE RECEIVED REPORT FROM THOMAS MCMANUS. PT RESTING, IN NO ACUTE DISTRESS. BIPAP IN PLACE, O2 SATS WNL. CALL LIGHT, POSSESSIONS IN REACH, BED IN LOW POSITION WITH ALARMS ON.
--- NOTE | 2020-12-01 04:25 | NUR ---
SALES AND MARKETING SPECIALIST SUMMARY PT ASLEEP, IN NO ACUTE DISTRESS. VS REVIEWED,WNL. PT HAS BEEN SLEEPING ON AND OFF THROUGH THE NIGHT. BIPAP REMAINS IN PLACE, O2 SATS AVERAGING IN THE 90'S WITH 6L O2 BLEED-IN. PT DENIES SOB, DYSPNEA. DENIES PAIN. NO ACUTE CHANGES IN CONDITION NOTED OVERNIGHT. CALL LIGHT, POSSESSIONS IN REACH, BED IN LOW AND LOCKED POSITION WITH ALARMS ON. WILL CONTINUE TO PROVIDE CARE NEEDED UNTIL REPORT GIVEN TO ONCOMING RN.
[2020-12-01 05:29] LABS: BASOPHILS ABSOLUTE AUTO 0.04 K/mm3 (0.00-0.23); BASOPHILS PERCENT AUTO 1 % (0-2); EOSINOPHILS PERCENT AUTO 3 % (0-6); Hematocrit 39.1 % (37.0-53.0); Hemoglobin 11.4 g/dL (13.5-17.5); IMMATURE GRAN ABSOLUTE AUTO 0.05 K/mm3 (0.00-0.10); IMMATURE GRAN PERCENT AUTO 1 % (0-1); LYMPHOCYTES PERCENT AUTO 5 % (21-46); MONOCYTES ABSOLUTE AUTO 0.49 K/mm3 (0.16-1.47); MONOCYTES PERCENT AUTO 7 % (4-13); Mean Corpuscular HGB 26.6 pg (26.0-34.0); Mean Corpuscular HGB Conc 29.2 g/dL (31.5-36.5); Mean Corpuscular Volume 91 fL (80-100); Mean Platelet Volume 9.1 fL (9.1-12.4); NEUTROPHILS ABSOLUTE AUTO 6.25 K/mm3 (1.96-9.15); NEUTROPHILS PERCENT AUTO 84 % (41-73); Platelet Count 276 K/mm3 (150-400); RDW Standard Deviation 51.6 fL (35.1-46.3); Red Blood Cell Count 4.28 M/mm3 (4.30-5.90); White Blood Cell Count 7.43 K/mm3 (4.00-11.30)
[2020-12-01 05:42] LABS: Alanine Aminotransfer (ALT/SGP 10 U/L (12-78); Albumin, Blood 2.8 g/dL (3.4-5.0); Albumin/Globulin Ratio 0.6 (0.8-1.8); Alk Phos 74 U/L (50-136); Anion Gap 3 mmol/L (6-16); Aspartate Aminotrans (AST/SGOT 8 U/L (12-37); Bilirubin, Total 0.5 mg/dL (0.1-1.0); Blood Urea Nitrogen 16 mg/dL (8-24); Bun/Creatinine Ratio 20.9 (12.0-20.0); CO2, Blood 30 mmol/L (21-32); Calcium, Blood 8.2 mg/dL (8.5-10.1); Chloride, Blood 108 mmol/L (98-108); Creatinine, Blood 0.77 mg/dL (0.60-1.20); Globulin, Blood 4.4 g/dL (2.2-4.0); Glomerular Filtration Rate >60 (60-); Glucose, Blood 120 mg/dL (70-99); Magnesium, Blood 2.4 mg/dL (1.6-2.4); Potassium, Blood 3.6 mmol/L (3.5-5.5); Sodium, Blood 141 mmol/L (136-145); Total Protein, Blood 7.2 g/dL (6.4-8.2)
--- NOTE | 2020-12-01 16:40 | NUR ---
PATIENT ASKED THAT HIS CAREGIVER BE CONTACTED BY PHONE AND TO LET THEM KNOW THAT HE WONT BE HOME TONIGHT. THIS RN CALLED THE NUMBERS ON THE CHART AND WAS UNBALE TO CONTACT EITHER CAREGIVER.
--- NOTE | 2020-12-01 16:44 | NUR ---
PATIENT IS ALERT AND ORIENTED AND COOPERATIVE WITH CARE. HE CALLS APPROPRIATELY. PATIENT IS BEDBOUND. LIFT SHEET IS IN PLACE. JENNA RN CHNAGED THE PATIENT'S SUPRAPUBIC CATHETER THIS AFTERNOON. PATIENT HAD A BEDBATH THIS MORNING. REPOSITIONING WITH PILLOWS. STAFF ASSISTS WITH MEALS. WILL CONTINUE TO MONITOR
--- NOTE | 2020-12-01 18:43 | NUR ---
PT GAVE THIS STUDENT NURSE PERMISSION TO PROVIDE CARE ON 12/01/20.
[2020-12-02 05:17] LABS: BASOPHILS ABSOLUTE AUTO 0.03 K/mm3 (0.00-0.23); BASOPHILS PERCENT AUTO 1 % (0-2); EOSINOPHILS ABSOLUTE AUTO 0.16 K/mm3 (0.00-0.68); EOSINOPHILS PERCENT AUTO 3 % (0-6); Hematocrit 34.3 % (37.0-53.0); Hemoglobin 10.1 g/dL (13.5-17.5); IMMATURE GRAN ABSOLUTE AUTO 0.02 K/mm3 (0.00-0.10); IMMATURE GRAN PERCENT AUTO 0 % (0-1); LYMPHOCYTES ABSOLUTE AUTO 0.66 K/mm3 (0.84-5.20); LYMPHOCYTES PERCENT AUTO 11 % (21-46); MONOCYTES ABSOLUTE AUTO 0.41 K/mm3 (0.16-1.47); MONOCYTES PERCENT AUTO 7 % (4-13); Mean Corpuscular HGB 26.6 pg (26.0-34.0); Mean Corpuscular HGB Conc 29.4 g/dL (31.5-36.5); Mean Corpuscular Volume 91 fL (80-100); Mean Platelet Volume 9.4 fL (9.1-12.4); NEUTROPHILS ABSOLUTE AUTO 4.49 K/mm3 (1.96-9.15); NEUTROPHILS PERCENT AUTO 78 % (41-73); Platelet Count 265 K/mm3 (150-400); RDW Coefficient Variation 16.3 % (11.7-14.2); RDW Standard Deviation 51.7 fL (35.1-46.3); Red Blood Cell Count 3.79 M/mm3 (4.30-5.90); White Blood Cell Count 5.77 K/mm3 (4.00-11.30)
--- NOTE | 2020-12-02 05:29 | NUR ---
SHIFT SUMMARY PT ANXIOUS&UNCOMFORTABLE THIS SHIFT. REPEATED ATTEMPTS AT REPOSITIONING DID NOT ALLEVIATE LEG PAIN; PT STATES D/T NEUROPATHY. RT REPOSITIONED BIPAP D/T PT REPORT OF IT BEING UNCOMFORTABLE. PT DID NOT SLEEP WELL T/O THE NIGHT. CALL LIGHT PT UNABLE TO OPERATE; PT HAS TOUCH PAD IN PLACE. WILL CONTINUE TO MONITOR.
[2020-12-02 05:38] LABS: Alanine Aminotransfer (ALT/SGP 10 U/L (12-78); Albumin, Blood 2.6 g/dL (3.4-5.0); Albumin/Globulin Ratio 0.6 (0.8-1.8); Alk Phos 65 U/L (50-136); Anion Gap 4 mmol/L (6-16); Aspartate Aminotrans (AST/SGOT 11 U/L (12-37); Bilirubin, Total 0.3 mg/dL (0.1-1.0); Blood Urea Nitrogen 17 mg/dL (8-24); CO2, Blood 29 mmol/L (21-32); Calcium, Blood 8.5 mg/dL (8.5-10.1); Chloride, Blood 107 mmol/L (98-108); Creatinine, Blood 0.71 mg/dL (0.60-1.20); Globulin, Blood 4.4 g/dL (2.2-4.0); Glomerular Filtration Rate >60 (60-); Glucose, Blood 99 mg/dL (70-99); Magnesium, Blood 2.4 mg/dL (1.6-2.4); Potassium, Blood 3.7 mmol/L (3.5-5.5); Sodium, Blood 140 mmol/L (136-145)
[2020-12-02] MEDS ORDERED: AMMONIUM LACTATE TOP (11:43)
[2020-12-02] MEDS ORDERED: AMOCLA500 PO (11:46)
[2020-12-02] MEDS ORDERED: GUAI600T33 PO (11:50)
--- NOTE | 2020-12-02 12:59 | NUR ---
STUDENT ASSESSMENT REVIEW I HAVE REVIEWED THE STUDENT'S ASSESSMENT, CONDUCETED MY OWN ASSESSMENT, AND I AGREE WITH THE STUDENT'S FINDINGS
--- NOTE | 2020-12-02 18:22 | NUR ---
Shift Summary, Patient is A/OX2 to self and place. The patient is cooperative and compliant with his care. He does repeat himself while in the room and mumbles while talking making him hard to understand. The patient is currently on 5LPM via hospital supplied BIPAP and 02sat at 96%. The patient has requested to switch between BIPAP and NC thoughout the day. He has recieved his IV antibiotics per EMAR. Tried multiple times to contact care provider thoughout shift but unsuccessful. Patient is currently resting in bed.
--- NOTE | 2020-12-02 19:41 | NUR ---
PT GAVE THIS STUDENT NURSE PERMISSION TO PROVIDE CARE ON 12/02/20.
--- NOTE | 2020-12-03 04:33 | NUR ---
SHIFT SUMMARY PT LESS ANXIOUS THAN RIOR NIGHT;ABLE TO REST COMFORTABLY DURING THIS SHIFT. VS REVIEWED, WNL. BIPAP IN PLACE OS SATS >90 W/3L BLEED IN - BASELINE. NO ACUTE CHANGES. BED IN LOWEST POSITION & TOUCH PAD WITHIN REACH. PT ANXIOUS & QUESTIONING IF NURSE HAD BEEN IN TOUCH WITH CAREGIVER;ABLE TO MOVE FORWARD W/O REPETITIVE QUESTIONS&SPEECH. WILL CONTINUE TO MONITOR UNTIL REPORT GIVEN TO ONCOMING RN.
--- NOTE | 2020-12-03 06:03 | NUR ---
CALLS TO CG MULT ATTEMPTS TO REACH CG'S FOR PT TO DC, MESSAGES LEFT, NO REPLIES REC. PT EXPRESSED FRUSTRATION ABOUT BEING "HELD", AND NOT UNDERSTANDING WHY WE WEREN'T SENDING HIM HOME, EXP TO PT MULT TIMES ABOUT MADE ATTEMPTS.
--- NOTE | 2020-12-03 13:30 | NUR ---
Discharge Summary. The patient was A/OX3 to person, place, and time. The patient was cooperative and compliant with care. He would repeat himself while nurse was in the room. He was anxious becuase he wanted to discharge home, but we were unable to contact the care provider until late this morning. Once his care provider was contacted his anxiety was relieved. The patient was given written and verbal discharge instructions. He was transported off the floor by EMS.
--- NOTE | 2020-12-03 15:11 | NUR ---
STUDENT ASSESSMENT REVIEW I HAVE REVIEWED THE STUDENT'S ASSESSMENT, CONDUCTED MY OWN ASSESSMENT, AND I AGREE WITH THE STUDENT'S FINDINGS.
--- NOTE | 2020-12-05 20:26 | NUR ---
LATE ENTRY 12/03/20 0500 AGREE WITH CHARTTING AND ASSESSMENTS OF SAI LARA, SN
== END 2020-12-03 13:17 | disposition home health service (06) | DRG 193 ==
LOC: ER 10:58 → MEDS 15:30 → ENPENDDIS 12-02 18:30 → MEDS 12-03 13:17
PROVIDERS: Emergency Medicine; ADMIT Internal Medicine
PROC: 5A09457 Assistance with Respiratory Ventilation, 24-96 Consecutive Hours, Continuous Positive Airway Pressure (ICD-10-PCS; principal; 2020-11-30)
DX: J18.9 Pneumonia, unspecified organism (principal); G82.50 Quadriplegia, unspecified; J96.21 Acute and chronic respiratory failure with hypoxia; I50.32 Chronic diastolic (congestive) heart failure; J44.0 Chronic obstructive pulmonary disease with (acute) lower respiratory infection; Z60.2 Problems related to living alone; E11.9 Type 2 diabetes mellitus without complications; N31.9 Neuromuscular dysfunction of bladder, unspecified; F17.210 Nicotine dependence, cigarettes, uncomplicated; G47.33 Obstructive sleep apnea (adult) (pediatric); F32.9 Major depressive disorder, single episode, unspecified; Z20.822 Contact with and (suspected) exposure to COVID-19; G47.00 Insomnia, unspecified; L21.0 Seborrhea capitis; D63.8 Anemia in other chronic diseases classified elsewhere; E66.9 Obesity, unspecified; Z98.1 Arthrodesis status; Z88.2 Allergy status to sulfonamides; Z88.1 Allergy status to other antibiotic agents; Z88.5 Allergy status to narcotic agent; Z91.040 Latex allergy status; S14.109S Unspecified injury at unspecified level of cervical spinal cord, sequela; Z98.890 Other specified postprocedural states; Z87.440 Personal history of urinary (tract) infections; Z86.718 Personal history of other venous thrombosis and embolism; Z87.442 Personal history of urinary calculi; Z99.81 Dependence on supplemental oxygen; Z79.82 Long term (current) use of aspirin; Z79.899 Other long term (current) drug therapy; Z79.51 Long term (current) use of inhaled steroids; Z79.84 Long term (current) use of oral hypoglycemic drugs; Z68.26 Body mass index [BMI] 26.0-26.9, adult
CPT/HCPCS: 36415; 71045; 80053; 81001; 82803; 82947; 83605; 83735; 83880; 84145; 84484; 85025; 87040; 87086; 93005; 93010; 94660; 94762; 96361; 96365; 99285-25; A9270; J0696; J1650; J2543; J7030; J7050; U0004

== ENCOUNTER 2020-12-13 09:49 | Emergency (ER) | payer OTHER ==
[~2020-12-13] VITALS: Ht 175.3 cm; Wt 108.9 kg
[~2020-12-13 09:49] MED LIST changes: +AMMONIUM LACTATE TOP; +AMOCLA500 PO
[2020-12-13 10:36] LABS: BASOPHILS ABSOLUTE AUTO 0.04 K/mm3 (0.00-0.23); BASOPHILS PERCENT AUTO 1 % (0-2); EOSINOPHILS ABSOLUTE AUTO 0.19 K/mm3 (0.00-0.68); EOSINOPHILS PERCENT AUTO 3 % (0-6); Hematocrit 38.2 % (37.0-53.0); Hemoglobin 11.1 g/dL (13.5-17.5); IMMATURE GRAN ABSOLUTE AUTO 0.02 K/mm3 (0.00-0.10); IMMATURE GRAN PERCENT AUTO 0 % (0-1); LYMPHOCYTES ABSOLUTE AUTO 0.96 K/mm3 (0.84-5.20); LYMPHOCYTES PERCENT AUTO 14 % (21-46); MONOCYTES ABSOLUTE AUTO 0.39 K/mm3 (0.16-1.47); MONOCYTES PERCENT AUTO 6 % (4-13); Mean Corpuscular HGB 26.8 pg (26.0-34.0); Mean Corpuscular HGB Conc 29.1 g/dL (31.5-36.5); Mean Corpuscular Volume 92 fL (80-100); Mean Platelet Volume 9.9 fL (9.1-12.4); NEUTROPHILS ABSOLUTE AUTO 5.14 K/mm3 (1.96-9.15); NEUTROPHILS PERCENT AUTO 76 % (41-73); Platelet Count 265 K/mm3 (150-400); RDW Coefficient Variation 15.9 % (11.7-14.2); RDW Standard Deviation 53.8 fL (35.1-46.3); Red Blood Cell Count 4.14 M/mm3 (4.30-5.90); White Blood Cell Count 6.74 K/mm3 (4.00-11.30)
[2020-12-13 10:48] LABS: Alanine Aminotransfer (ALT/SGP 11 U/L (12-78); Albumin, Blood 2.9 g/dL (3.4-5.0); Albumin/Globulin Ratio 0.6 (0.8-1.8); Alk Phos 74 U/L (50-136); Anion Gap 2 mmol/L (6-16); Aspartate Aminotrans (AST/SGOT 7 U/L (12-37); Bilirubin, Total 0.4 mg/dL (0.1-1.0); Blood Urea Nitrogen 16 mg/dL (8-24); Bun/Creatinine Ratio 24.8 (12.0-20.0); CO2, Blood 29 mmol/L (21-32); Calcium, Blood 8.6 mg/dL (8.5-10.1); Chloride, Blood 112 mmol/L (98-108); Creatinine, Blood 0.65 mg/dL (0.60-1.20); Globulin, Blood 4.8 g/dL (2.2-4.0); Glomerular Filtration Rate >60 (60-); Glucose, Blood 113 mg/dL (70-99); Potassium, Blood 3.9 mmol/L (3.5-5.5); Sodium, Blood 143 mmol/L (136-145); Total Protein, Blood 7.7 g/dL (6.4-8.2)
[2020-12-13 11:54] LABS: Source, Urine Catheter
[2020-12-13 11:57] LABS: Appearance, Urine Turbid (Clear); Bilirubin, Urine Neg (Neg); Blood, Urine 5+ (Neg); Color, Urine Yellow (P-Yellow); Glucose Qualitative, Urine Neg (Neg); Ketones, Urine Neg (Neg); Leukocyte Esterase, Urine 3+ (Neg); Nitrite, Urine Pos (Neg); Protein, Urine 3+ (Neg); Specific Gravity, Urine 1.015 (1.003-1.022); Urobilinogen, Urine NORM (Normal)
[2020-12-13 12:09] LABS: Bacteria Many /hpf; Squamous Epithelial Cells Not Seen /hpf (Few); White Blood Cells, Urine TNTC /hpf (0-5)
[2020-12-13] MEDS ORDERED: FAMO20 PO (12:29)
[2020-12-13] MEDS ORDERED: TEMA30 PO (12:30)
[2020-12-13] MEDS ORDERED: DECADRON6 M1 PO (12:50)
== END 2020-12-13 15:00 | disposition home or self-care (01) ==
LOC: ER 09:49
PROVIDERS: Physician Assistant
DX: U07.1 COVID-19 (principal); N39.0 Urinary tract infection, site not specified; E11.9 Type 2 diabetes mellitus without complications; J44.9 Chronic obstructive pulmonary disease, unspecified; I50.32 Chronic diastolic (congestive) heart failure; F17.210 Nicotine dependence, cigarettes, uncomplicated; Z88.2 Allergy status to sulfonamides; Z88.1 Allergy status to other antibiotic agents; Z88.5 Allergy status to narcotic agent; Z88.8 Allergy status to other drugs, medicaments and biological substances; Z91.040 Latex allergy status; Z79.899 Other long term (current) drug therapy
CPT/HCPCS: 36415; 71045; 73630; 80053; 81001; 83605; 83880; 84484; 85025; 87040; 87077; 87086; 87186; 93005; 93010; 93970; 96365; 99284-25; J1100; J2543

== ENCOUNTER 2020-12-21 13:27 | Inpatient (IN) | payer OTHER ==
[~2020-12-21] VITALS: Ht 177.8 cm; Wt 92.0 kg
[~2020-12-21 13:27] MED LIST changes: +DECADRON6 M1 PO; +FAMO20 PO; +TEMA30 PO
[2020-12-21 14:26] LABS: PCO2 Arterial 71.7 mmHg (35-45); PO2 Arterial 67.9 mmHg (80-100); pH Blood Arterial 7.25 (7.35-7.45)
[2020-12-21 15:05] LABS: Alanine Aminotransfer (ALT/SGP 19 U/L (12-78); Albumin, Blood 3.1 g/dL (3.4-5.0); Albumin/Globulin Ratio 0.7 (0.8-1.8); Alk Phos 74 U/L (50-136); Anion Gap 3 mmol/L (6-16); Aspartate Aminotrans (AST/SGOT 16 U/L (12-37); Bilirubin, Total 0.6 mg/dL (0.1-1.0); Blood Urea Nitrogen 16 mg/dL (8-24); Bun/Creatinine Ratio 26.9 (12.0-20.0); CO2, Blood 31 mmol/L (21-32); Calcium, Blood 8.1 mg/dL (8.5-10.1); Chloride, Blood 104 mmol/L (98-108); Globulin, Blood 4.7 g/dL (2.2-4.0); Glomerular Filtration Rate >60 (60-); Glucose, Blood 175 mg/dL (70-99); Potassium, Blood 3.5 mmol/L (3.5-5.5); Sodium, Blood 138 mmol/L (136-145); Total Protein, Blood 7.8 g/dL (6.4-8.2); Troponin I <0.015 ng/mL (0.000-0.040)
[2020-12-21 15:44] LABS: BASOPHILS ABSOLUTE AUTO 0.06 K/mm3 (0.00-0.23); BASOPHILS PERCENT AUTO 0 % (0-2); Hematocrit 45.3 % (37.0-53.0); Hemoglobin 13.2 g/dL (13.5-17.5); LYMPHOCYTES ABSOLUTE AUTO 0.96 K/mm3 (0.84-5.20); LYMPHOCYTES PERCENT AUTO 4 % (21-46); MONOCYTES ABSOLUTE AUTO 1.29 K/mm3 (0.16-1.47); MONOCYTES PERCENT AUTO 6 % (4-13); Mean Corpuscular HGB 26.5 pg (26.0-34.0); Mean Corpuscular HGB Conc 29.1 g/dL (31.5-36.5); Mean Corpuscular Volume 91 fL (80-100); RDW Coefficient Variation 15.9 % (11.7-14.2); RDW Standard Deviation 52.4 fL (35.1-46.3); Red Blood Cell Count 4.98 M/mm3 (4.30-5.90); White Blood Cell Count 21.78 K/mm3 (4.00-11.30)
[2020-12-21] MEDS ORDERED: APRISO0.375 GM PO (15:54)
[2020-12-21] MEDS ORDERED: DEXA6 PO (15:55)
[2020-12-21] MEDS ORDERED: Loratadine10 MG PO (15:56)
[2020-12-21] MEDS ORDERED: DIAZEPAM10 MG PO (15:56)
[2020-12-21] MEDS ORDERED: FURO40 PO (15:57)
[2020-12-21] MEDS ORDERED: METF500 PO (15:57)
[2020-12-21] MEDS ORDERED: PRAVASTATIN SOD40 MG PO (15:58)
[2020-12-21] MEDS ORDERED: CALCITRIOL0.5 MCG PO (16:00)
[2020-12-21] MEDS ORDERED: TRIAMCINOLONE 0.1% TOP (16:00)
[2020-12-21] MEDS ORDERED: ACET250 PO (16:01)
[2020-12-21] MEDS ORDERED: TEMAZEPAM PO (16:01)
[2020-12-21] MEDS ORDERED: ALPRAZOLAM0.5 M1 PO (16:02)
[2020-12-21] MEDS ORDERED: ESCITALOPRAM OXA5 MG PO (16:02)
[2020-12-21] MEDS ORDERED: MONT10T PO (16:03)
[2020-12-21] MEDS ORDERED: IPRAT-ALBUT 0.5-3 ML NEB (16:03)
[2020-12-21] MEDS ORDERED: BACLOFEN10 M4 PO (16:03)
[2020-12-21] MEDS ORDERED: TRAZ50 PO (16:03)
[2020-12-21] MEDS ORDERED: GABA300 PO (16:04)
[2020-12-21] MEDS ORDERED: Cetirizine HCl10 MG PO (16:04)
[2020-12-21] MEDS ORDERED: Aspir 8181 MG PO (16:05)
[2020-12-21 16:21] LABS: EOSINOPHILS ABSOLUTE AUTO 0.02 K/mm3 (0.00-0.68); EOSINOPHILS PERCENT AUTO 0 % (0-6); IMMATURE GRAN ABSOLUTE AUTO 0.11 K/mm3 (0.00-0.10); IMMATURE GRAN PERCENT AUTO 1 % (0-1); Mean Platelet Volume 10.5 fL (9.1-12.4); NEUTROPHILS ABSOLUTE AUTO 19.34 K/mm3 (1.96-9.15); NEUTROPHILS PERCENT AUTO 89 % (41-73); Platelet Count 350 K/mm3 (150-400)
[2020-12-21 16:32] LABS: PCO2 Arterial 66.6 mmHg (35-45); PO2 Arterial 68.5 mmHg (80-100); pH Blood Arterial 7.21 (7.35-7.45)
--- NOTE | 2020-12-21 18:35 | NUR ---
ADMIT PT ARRIVED TO ICU ROOM 12 VIA ER BED AT 1800. PT INTUBATED AND SEDATED. PT TRANSFERED TO ICU BED WITH RT ASSISTANCE. VENT SETTINGS AC 16, TV 500, PEEP 10, FIO2 50%. PT WITH COPIOUS THICK ETT SECRETIONS. PROPOFOL INFUSING AT 20 MCG/KG/MIN AND DOPAMINE AT 10 MCG/KG/MIN. SBP 100'S. HR 100'S. PT WITH INDWELLING SUPRAPUBIC HOLLAND IN PLACE WITH MINIMAL DARK YELLOW OUTPUT NOTED. PT WITH CONTRACTURES TO ALL EXTREMITIES. WOUNDS TO BLE'S NOTED. OGT IN PLACE. PT WITH LARGE SOFT BM UPON ARRIVAL. DR HONG AWARE OF NEW ADMIT AND PREPPING TO PLACE CENTRAL LINE AT THIS TIME. WILL CONTINUE TO MONITOR AND REPORT OFF TO ONCOMING RN.
[2020-12-21 21:42] LABS: Source, Urine Catheter
[2020-12-21 21:45] LABS: Bilirubin, Urine Neg (Neg); Blood, Urine 5+ (Neg); Glucose Qualitative, Urine Neg (Neg); Ketones, Urine Neg (Neg); Leukocyte Esterase, Urine 3+ (Neg); Nitrite, Urine Pos (Neg); Protein, Urine 3+ (Neg); Specific Gravity, Urine 1.015 (1.003-1.022); Urobilinogen, Urine NORM (Normal)
[2020-12-21 22:03] LABS: Appearance, Urine Cloudy (Clear); Bacteria Many /hpf; Color, Urine Yellow (P-Yellow); Squamous Epithelial Cells Not Seen /hpf (Few); White Blood Cells, Urine TNTC /hpf (0-5)
--- NOTE | 2020-12-21 22:26 | NUR ---
SHIFT ASSESSMENT ASSUMED CARE OF PT @ 1900. BEDSIDE REPORT RECEIVED FROM THOMAS PAL. DR. HONG AND DEMARCO IN ROOM INITIALLY ESTABLISHING CENTRAL LINE. PLACEMENT CONFIRMED VIA X-RAY BY DR HONG. PT INTUBATED AND SEDATED. PROPOFOL GTT INITIALLY @ 20MCG/KG/MIN, CURRENTLY @ 5MCG/KG/MIN. LEVOPHED GTT TIRATED DOWN FROM 12MCG/MIN TO 5MCG/MIN c MAP MAINTAINING >65. VENT [id number]-31/420/5/35% c O2 >95%. COPIOUS AMOUNTS OF THICK, YELLOWISH/BROWN SECRETIONS SUCTIONED FROM ET TUBE. SUPRAPUBIC CATHETER CHANGED, URINE SPECIMENT SENT TO LAB. PT QUADRAPALEGIC, CONTRACTURES TO EXTREMITIES. SKIN IS DRY, RASH TO BLE, SEE PHOTOS IN CHART. WILL CONTINUE TO MONITOR CLOSELY.
--- NOTE | 2020-12-22 01:39 | NUR ---
UPDATE DURING MIDNIGHT REASSESSMENT, PT BEGAN WAKING UP, ATTEMPTING TO SPEAK TO THIS NURSE. SEDATION MOMENTARILY PLACED ON STANDBY, COMMUNICATION BOARD BROUGHT INTO PT ROOM. PT ABLE TO POINT WITH RIGHT FINGER, C/O THROAT PAIN. INFORMED PT OF PAIN LIKELY SECONDARY TO INTUBATION, PT UNDERSTANDS, DENIES NEED FOR STRONGER PAIN MEDS OTHER THAN TYLENOL AT THIS TIME. PT ABLE TO SQUEEZE R HAND WEAKLY WHICH PT AGREES HIS NORMAL STRENGTH. TOLERATING VENTILATOR, ABLE TO COUGH DEEPLY WITH REQUEST. COPIOUS AMOUNTS OF THICK SECRETIONS SUCTIONED FROM ET TUBE. PROPOFOL TITRATED UP TO 15MCG/KG/MIN. VSS. WILL CONTINUE TO MONITOR.
[2020-12-22 04:34] LABS: Hemoglobin 11.6 g/dL (13.5-17.5); Mean Corpuscular HGB 26.5 pg (26.0-34.0); Mean Corpuscular HGB Conc 29.7 g/dL (31.5-36.5); Mean Corpuscular Volume 89 fL (80-100); Mean Platelet Volume 9.8 fL (9.1-12.4); Platelet Count 428 K/mm3 (150-400); RDW Coefficient Variation 15.9 % (11.7-14.2); RDW Standard Deviation 52.3 fL (35.1-46.3); Red Blood Cell Count 4.38 M/mm3 (4.30-5.90); White Blood Cell Count 29.38 K/mm3 (4.00-11.30)
[2020-12-22 04:52] LABS: Alanine Aminotransfer (ALT/SGP 13 U/L (12-78); Albumin, Blood 2.3 g/dL (3.4-5.0); Albumin/Globulin Ratio 0.6 (0.8-1.8); Alk Phos 61 U/L (50-136); Anion Gap 6 mmol/L (6-16); Aspartate Aminotrans (AST/SGOT 14 U/L (12-37); Bilirubin, Total 0.4 mg/dL (0.1-1.0); Blood Urea Nitrogen 19 mg/dL (8-24); Bun/Creatinine Ratio 31.9 (12.0-20.0); CO2, Blood 26 mmol/L (21-32); Calcium, Blood 7.4 mg/dL (8.5-10.1); Chloride, Blood 109 mmol/L (98-108); Globulin, Blood 4.1 g/dL (2.2-4.0); Glomerular Filtration Rate >60 (60-); Glucose, Blood 185 mg/dL (70-99); Magnesium, Blood 2.1 mg/dL (1.6-2.4); Phosphorus, Blood 2.7 mg/dL (2.5-4.9); Potassium, Blood 2.6 mmol/L (3.5-5.5); Sodium, Blood 141 mmol/L (136-145); Total Protein, Blood 6.4 g/dL (6.4-8.2)
[2020-12-22 04:56] LABS: BAND PERCENT MAN 21 % (0-8); BASOPHILS PERCENT MAN 0 % (0-2); EOSINOPHILS PERCENT MAN 0 % (0-6); LYMPHOCYTES ABSOLUTE MAN 0.29 K/mm3 (0.84-5.20); LYMPHOCYTES PERCENT MAN 1 % (21-46); METAMYELOCYTE ABSOLUTE MAN 0.58 K/mm3 (0.00-0.00); METAMYELOCYTE PERCENT MAN 2 % (0-0); MONOCYTES ABSOLUTE MAN 0.88 K/mm3 (0.16-1.47); MONOCYTES PERCENT MAN 3 % (4-13); NEUTROPHILS ABSOLUTE MAN 27.61 K/mm3 (1.96-9.15); SEG NEUTROPHILS PERCENT MAN 73 % (41-73); TOTAL CELLS COUNTED 100
[2020-12-22 05:10] LABS: PCO2 Arterial 42.8 mmHg (35-45); PO2 Arterial 69.1 mmHg (80-100); pH Blood Arterial 7.37 (7.35-7.45)
--- NOTE | 2020-12-22 07:26 | NUR ---
SHIFT ASSESSMENT PT REMAINS INTUBATED AND SEDATED. ABLE TO COMMUNICATE NEEDS WITH WHITE BOARD. VENT [id number]-49/420/20%/PEEP-5 c O2 SATS >95%. PT TOLERATING VENT. COUGHING UP COPIOUS AMOUNTS OF THICK SPUTUM. PROPOFOL REMAINS @ 15MCG/KG/MIN, NOREPINEPHRINE @ 7MCG/MIN c MAP >65. SUPRAPUBIC CATHETER DRAINING URVASHI URINE. ONE LARGE LOOSE BOWEL MOVEMENT THIS AM. NO OTHER SIGNIFICANT CHANGES SINCE LAST NOTE. REPORT GIVEN TO ONCOMING NURSE.
--- NOTE | 2020-12-22 10:29 | NUR ---
Care Assumed 0700 Pt intubated and sedated. Sedated with Propofol 15 mcg/kg/min, pt able to follow commands/communicate minimal needs with white board. Vent settings, AC 20/420/30%/5. FIO2 > 90%. Levophed at 7 mcg/min to keep MAP > 90%. Suprapubic catheter draining dark yellow urine. Moves right arm only, weak fnps, pt is quadriplegic. Skin cry, Rash BLE, see photos in chart. NSR. Dr. Polo and Lenin in to see pt. No new orders recieved.
--- NOTE | 2020-12-22 13:00 | NUR ---
Update - Provider visit Tube feed Pt started on Pivot 1.5 at 25 ml/hr with Q4 30 ml flush via OG tube. Vent settings unchanged. Pt appears more lethergic compared to this morning. Falls alseep but easily awakens to verbal stimuli. Follows commands and denies pain or feeling SOB. Dr. Enriquez at bedside, updated on current pt care. Levo at 10 mcg/min and Propofol 15 MCG/KG/MIN. HR low 40's. Provider aware.
--- NOTE | 2020-12-22 13:26 | NUR ---
Update- EKG and new medication EKG completed, sinus ratna. Dr. Enriquez would like pt on norepinephrine and dopamine. Would like Dopamine for HR 60-70's. Currentluy HR 40's. MAP > 65.
[2020-12-22 14:53] LABS: Alanine Aminotransfer (ALT/SGP 14 U/L (12-78); Albumin, Blood 2.2 g/dL (3.4-5.0); Albumin/Globulin Ratio 0.6 (0.8-1.8); Alk Phos 62 U/L (50-136); Anion Gap 6 mmol/L (6-16); Aspartate Aminotrans (AST/SGOT 10 U/L (12-37); Bilirubin, Total 0.7 mg/dL (0.1-1.0); Blood Urea Nitrogen 18 mg/dL (8-24); Bun/Creatinine Ratio 28.6 (12.0-20.0); CO2, Blood 23 mmol/L (21-32); Calcium, Blood 7.4 mg/dL (8.5-10.1); Chloride, Blood 112 mmol/L (98-108); Creatinine, Blood 0.63 mg/dL (0.60-1.20); Globulin, Blood 3.8 g/dL (2.2-4.0); Glomerular Filtration Rate >60 (60-); Glucose, Blood 206 mg/dL (70-99); Magnesium, Blood 2.1 mg/dL (1.6-2.4); Phosphorus, Blood 2.5 mg/dL (2.5-4.9); Potassium, Blood 3.7 mmol/L (3.5-5.5); Sodium, Blood 141 mmol/L (136-145)
--- NOTE | 2020-12-22 15:54 | NUR ---
Update- Echo Dr. Enriquez called and updated on pts echo being completed. Per veterinary surgery technician pt has pleural and pericardial effusion. Dr. Enriquez would like cardiology consulted. Pt continues to have bardy arrhythmia. Another EKG completed per charge nurse Jessica.
--- NOTE | 2020-12-22 16:05 | NUR ---
Cardiology consult Dr. Hill called for consult. Provider made aware of current drips and consulting provider.
--- NOTE | 2020-12-22 16:50 | NUR ---
Dr. Hill at bedside. in to see patient. Reviwed patients EKG and strips. Provider udpated Dr. Enriquez via phone. Dr. Hill states to increase Dopamine to 5 and 7.5 as needed for HR and MAP > 65. No new orders recieved.
--- NOTE | 2020-12-22 18:35 | NUR ---
Shift Summary Pt intubated and sedated. Vent settings unchanged, copious thick secreations. Propofol GTT 10 mcg/kg/min, via central line to [facility]. Dopamine 4 mcg/kg/min, MAP > 65. HR 40-50'S and when in room speaking to PT, HR 60's-70's. Pt able to follow commands, uses board to communicate. Mouthing words but unable to understand. Suprapubic catheter draning dark/cloudy yellow urine. Will report to oncoming nurse.
--- NOTE | 2020-12-23 00:10 | NUR ---
ASSUMED PT CARE FROM ISHAN RN AT 1915 PT INTUBATED AND ON LIGHT SEDATION. VENT AC/VC 20, VT 420, PEEP 5, FIO2 30%, SPO2 99%, RR 20. PT ALERT AND ABLE TO MAKE SOME NEEDS KNOWN. UTILIZES COMMUNICATION BOARD; HOWEVER, STRUGGLES AT TIMES COMMUNICATING NEEDS. PREFERS TO MOUTH WORDS AROUND ETT DESPITE EDUCATING PT THAT WE ARE UNABLE TO READ LIPS D/T ETT. ENCOURAGED PT TO ANSWER YES/NO QUESTIONS INSTEAD TO PREVENT FURTHER FRUSTRATIONS. PT ABLE TO FOLLOW COMMANDS APPROPRIATELY. HE IS A QUADRIPLEGIC, BUT ABLE TO MOVE RIGHT ARM/HAND, BUT STILL LIMITED ROM WITH CONTRACTURES NOTED TO BOTH HANDS. HE HAS SCATTERED SCABS, BLISTERS, AND MATA TO RIGHT HAND. PER REPORT PT IS STILL A SMOKER. HE HAS WHAT APPEARS TO A SKIN RASH/INFECTION TO BILATERAL SHINS WITH LARGE DRY, FLAKEY SKIN PARTICLES. PT ALSO NOTED TO HAVE EXTENSIVE CRADLE CAP TO SCALP IN WHICH SOME SKIN FLAKES WERE ABLE TO BE REMOVED DURING HIS BED BATH, BUT A LOT OF THE SKIN PARTICLES REMAINED IN HAIR. PT ATTEMPTS TO COMMUNICATE TO ME THAT HE HAS CAREGIVERS THAT TAKE CARE OF HIM; HOWEVER, UNSURE WHEN THE LAST TIME WAS THAT HIS HAIR WAS WASHED. SUPRA PUBIC CATHETER IS PATENT AND DRAINING URVASHI COLORED URINE THAT IS CLOUDY WITH SEDIMENT. PIVOT 1.5 INFUSING AT 25MLS/HR, WHICH WAS INCREASED TO GOAL OF 45MLS/HR AT 2300. PT HAS A CENTRAL LINE TO LEFT IJ. PROPOFOL INCREASED TO 25MCG/KG/MIN. NS INFUSING AT 75MLS/HR. DOPAMINE INCREASED TO 5MCG/KG/MIN D/T INCREASEING PROPOFOL AND HR IN THE 40'S. BP'S STABLE, SEE FLOWSHEET.
[2020-12-23 04:14] LABS: Anion Gap 5 mmol/L (6-16); Blood Urea Nitrogen 21 mg/dL (8-24); Bun/Creatinine Ratio 40.9 (12.0-20.0); CO2, Blood 25 mmol/L (21-32); Calcium, Blood 7.4 mg/dL (8.5-10.1); Chloride, Blood 112 mmol/L (98-108); Creatinine, Blood 0.51 mg/dL (0.60-1.20); Glomerular Filtration Rate >60 (60-); Glucose, Blood 222 mg/dL (70-99); Magnesium, Blood 2.3 mg/dL (1.6-2.4); Phosphorus, Blood 2.2 mg/dL (2.5-4.9); Potassium, Blood 3.1 mmol/L (3.5-5.5); Sodium, Blood 142 mmol/L (136-145)
--- NOTE | 2020-12-23 04:52 | NUR ---
SBT/SEDATION VACATION PROPOFOL TURNED OFF AT 0325. PT ABLE TO OPEN EYES SPONTANEOUSLY, AND FOLLOW COMMANDS APPROPRIATELY. RT TO BEDSIDE TO START SBT IN WHICH VENT WAS SWITCHED TO SPONTANEOUS WITH PS 8/5; FIO2 30%, RR REMAINED 22-25, VT 349-445, SPO2 >95%. VSS, SEE FLOWSHEET. PT REMAINED CALM AND COOPERATIVE T/O TRIAL. CONTINUES TO HAVE COPIOUS AMOUNTS OF THICK AL[place]A SECRETIONS WITH BLOOD STREAKED SPUTUM. PT SWITCHED BACK TO AC/VC 20, VT 420, PEEP 5, FIO2 30% AFTER TRIAL.
--- NOTE | 2020-12-23 04:56 | NUR ---
END OF SHIFT SUMMARY NO SIGNIFICANT CHANGES THIS SHIFT. VENT SETTINGS AC/VC 20, VT 420, PEEP 5, FIO2 30%; SPO2 >95%. PROPOFOL TURNED BACK ON TO 20MCG/KG/MIN AFTER SBT (SEE SBT/SEDATION VACATION NOTE). PT TENDS TO GET VERY FRUSTRATED WHEN UNABLE TO COMMUNICATE WITH STAFF. ATTEMPTED TO HAVE PT UTILIZE COMMUNICATION BOARD; HOWEVER, VERY DIFFICULT TO FOLLOW WHICH LETTERS HE IS CHOOSING D/T HIM UTILIZING TWO FINGERS TO SELECT LETTERS. THEREFORE, IT IS HARD TO FOLLOW WHAT HE IS TRYING TO SPELL. ENCOURAGED HIM TO ANSWER YES/NO QUESTIONS INSTEAD. PT CONTINUES TO MOUTH WORDS AROUND ETT DESPITE INFORMING HIM THAT I CANNOT UNDERSTAND WHAT HE IS SAYING, WHICH CAUSES HIM TO BECOME MORE FRUSTRATED. PT STARTED ALARMING HIGH PEAK PRESSURES; THEREFORE, SEDATION TURNED BACK ON LOW DOSE. WHEN PT IS RESTING HIS HR DROPS TO THE 40'S; NOTED TO BE IN AND OUT OF A JUNCTIONAL RHYTHM WITH BBB T/O SHIFT. WHEN AWAKE HIS HR IS 60-70'S. DOPAMINE GTT REMAINS AT 5MCG/KG/MIN. BP'S STABLE, SEE FLOWSHEET. PT PRODUCING COPIOUS AMOUNTS OF THICK ALCALA WITH BLOOD STREAKED SPUTUM. PIVOT 1.5 AT GOAL OF 45MLS/HR WITH MINIMAL RESIDUALS NOTED. PT STILL COMMUNICATES WITH STAFF THAT HE IS "HUNGRY" INFORMED HIM THAT THE TUBE FEEDING JUST INCREASED THIS SHIFT AND TO GIVE IT TIME TO TAKE EFFECT. HOLLAND IS PATENT AND DRAINING TO GRAVITY. APPLIED TRIPLE ABO OINTMENT TO RASH TO BILATERAL SHINS AND MEPITEL TO SKIN TEAR TO LEFT HAND. CALL MADE TO DR. RAMOS THIS MORNING REGARDING REPLACING PT'S POTASSIUM AND PHOSPHORUS WITH ORDERS OF 30MMOL KPHOS IV. WILL CONTINUE TO MONITOR UNTIL REPORT IS HANDED OFF TO ONCOMING RN.
--- NOTE | 2020-12-23 08:34 | NUR ---
CARE ASSUMED ASSESSMENTS COMPLETED. LS CLEAR, PT ON VENT AC 20, Vt 420, PEEP 5, FIO2 30%, RR 20, SPO2 97%. HR IRREGULAR SINUS WITH RARE PVC'S, RATE 50'S-70'S WITH DOPAMINE 5MCG/KG/MIN, BP STABLE. EDEMA NOTED TO LE'S, PPP. PT ALERT, ANSWERS YES/NO APPROPRIATELY, DENIES PAIN, NAUSEA, AND DISCOMFORT. GROSS MOVEMENT TO RUE ONLY, OTHER EXTREMS ABSENT OF MOVEMENT. TF AT GOAL RATE 45ML/HR, RESIDUAL 20ML, BT PRESENT, ABD SOFT. SUPRAPUBIC CATH PATENT, URINE YELLOW, CLOUDY. PROPOFOL INCREASED TO 30MCG/KG/MIN.
[2020-12-23 09:54] LABS: Vancomycin, Trough 30.8 ug/mL (5.0-10.0)
--- NOTE | 2020-12-23 12:50 | NUR ---
UPDATE HR DECREASED SEEMINGLY UNPROVOKED TO 37-40'S, IRREGULAR, P WAVES INTERMITTENTLY ABSENT. EKG OBTAINED, DOPAMINE INCREASED AND PROPOFOL DECREASED WITHOUT CHANGE IN HR. DR. GILBERT NOTIFIED, NEW ORDERS. ATROPINE ADMINISTERED WITH GOOD RESULT, HR INITIALLY INCREASED TO 108, THEN DECREASED TO 70'S. DOPAMINE DC'D, EPI GTT INITIATED PER DR. GILBERT AT 2MCG/MIN, HR 90'S SINUS, BP 92/55 MAP 66. PT WOKE DURING EPISODE, WAS REACHING FOR TUBE WITH RIGHT HAND, WOULD NOT FOLLOW INSTRUCTION TO LEAVE HAND DOWN. PROPOFOL 30MCG, R WRIST RESTRAINT PLACED.
--- NOTE | 2020-12-23 18:40 | NUR ---
END OF SHIFT PT'S VSS AFTER EPI INFUSION TITRATED TO 5MCG/MIN, HR 50-60'S IRREGULAR SINUS AT THIS TIME, HAS APPEARED JUNCTIONAL AND A FLUTTER AT INTERMITTENTLY THIS SHIFT. BP STABLE. LS REMAIN CLEAR, DIMINISHED ON R, SMALL AMOUNT OF SECRETIONS THIS EVENING. VENT SETTINGS UNCHANGED, SPO2 98%, RR 20. PT LIGHTLY SEDATED WITH 40MCG PROPOFOL, WAKES TO TOUCH, MOVES R ARM, ANSWERS YES/NO, FALLS BACK ASLEEP QUICKLY. R WRIST RESTRAINT IN PLACE D/T PATIENT REACHING UP AND GRABBING TUBE WITH R HAND. SMALL BM AND GOOD URINE OUTPUT THIS SHIFT, TF RATE AND FORMULA UNCHANGED.
--- NOTE | 2020-12-24 00:32 | NUR ---
UPDATE PT 0000 CBG CHECK WAS 437. 5UNITS GIVEN UNDER LOW CS ORDER THAN TAYLOR REYNOSO NOTIFIED. NEW ORDERS PROVIDED FROM HIM TO GIVEN AN ADDITIONAL 5 UNITS OF HUMALOG NOW AND CHANGE LOW CS TO MED CS.
--- NOTE | 2020-12-24 01:09 | NUR ---
ASSUMED CARE AT 1900 PT LAYING IN BED INTUABED WITH VENT SETTINGS AC 20, TV 420, PEEP 5, FIO2 30%; MODERATE AMOUNT OF ETT SECREATIONS SUCTIONED. PT MINIMALLY REACTIVE TO PAINFUL STIMULI; GAG NOT PRESENT BUT A WEAK COUGH IS; PROPOFOL INFUSING AT 40MCG/KG/MIN. AFEBRILE. HR 50-60'S; RHYTHM IRREGULAR. SBP 110-120; MAP >65; EPI INFUSING AT 5MCG/MIN. PIVOT INFUSING VIA OG AT 45ML/HR (GOAL) WITH 30ML WATER FLUSHES Q4HR; MINIMAL RESIDUALS NOTED. SUPRA-PUBIC CATHETER IN PLACE AND DRAINING TO GRAVITY; SITE C/D/I. CENTRAL LINE TO LT IG DRESSING C/D/I. SEE SHIFT ASSESSMENT FOR FULL ASSESSMENT.
[2020-12-24 04:21] LABS: Hematocrit 34.5 % (37.0-53.0); Hemoglobin 9.9 g/dL (13.5-17.5); Mean Corpuscular HGB 25.8 pg (26.0-34.0); Mean Corpuscular HGB Conc 28.7 g/dL (31.5-36.5); Mean Corpuscular Volume 90 fL (80-100); Mean Platelet Volume 10.4 fL (9.1-12.4); NRBC ABSOLUTE 0.02 K/mm3 (0.00-0.02); NRBC Auto 0.1 /100 WBC (0.0-0.2); Platelet Count 350 K/mm3 (150-400); RDW Coefficient Variation 16.3 % (11.7-14.2); Red Blood Cell Count 3.83 M/mm3 (4.30-5.90); White Blood Cell Count 14.64 K/mm3 (4.00-11.30)
[2020-12-24 04:38] LABS: Anion Gap 4 mmol/L (6-16); Blood Urea Nitrogen 29 mg/dL (8-24); Bun/Creatinine Ratio 50.4 (12.0-20.0); CO2, Blood 26 mmol/L (21-32); Calcium, Blood 7.8 mg/dL (8.5-10.1); Chloride, Blood 112 mmol/L (98-108); Creatinine, Blood 0.58 mg/dL (0.60-1.20); Glomerular Filtration Rate >60 (60-); Glucose, Blood 437 mg/dL (70-99); Magnesium, Blood 2.4 mg/dL (1.6-2.4); Phosphorus, Blood 2.8 mg/dL (2.5-4.9); Potassium, Blood 3.7 mmol/L (3.5-5.5); Sodium, Blood 142 mmol/L (136-145); Vancomycin, Random 21.3 ug/mL
[2020-12-24 05:15] LABS: BAND PERCENT MAN 5 % (0-8); BASOPHILS PERCENT MAN 0 % (0-2); EOSINOPHILS PERCENT MAN 0 % (0-6); LYMPHOCYTES ABSOLUTE MAN 0.29 K/mm3 (0.84-5.20); LYMPHOCYTES PERCENT MAN 2 % (21-46); MONOCYTES ABSOLUTE MAN 0.58 K/mm3 (0.16-1.47); MONOCYTES PERCENT MAN 4 % (4-13); NEUTROPHILS ABSOLUTE MAN 13.76 K/mm3 (1.96-9.15); SEG NEUTROPHILS PERCENT MAN 89 % (41-73); TOTAL CELLS COUNTED 100
[2020-12-24 05:18] LABS: PCO2 Arterial 52.7 mmHg (35-45); PO2 Arterial 71.5 mmHg (80-100); pH Blood Arterial 7.28 (7.35-7.45)
--- NOTE | 2020-12-24 05:34 | NUR ---
UPDATE CRITICAL VALUE OF pH 7.[address] BAINS; HE STATED THAT HE WILL CHANGE THE VENT SETTINGS WHEN HE IS IN THIS AM. ALSO DISCUSSED PT GLUCOSE OF 437 WITH AM LAB DRAW; NEW ORDERS PROVIDED TO CHANGE MED SS TO HIGH SS AND TO CHECK CBG Q4HR.
--- NOTE | 2020-12-24 08:30 | NUR ---
CARE ASSUMED ASSESSMENTS COMPLETED, NO SIGNIFICANT CHANGES SINCE LAST EVENING. DR. BAINS TO ADJUST VENT SETTINGS THIS MORNING FOR ABG RESULTS, VENT CURRENTLY AC 20, Vt 420, PEEP 5, FIO2 40%. LS CLEAR AFTER ETT SUCTIONING, SECRETIONS THICK, BROWN, LARGE AMOUNT, COUGH VERY WEAK. PROPOFOL 40MCG, PT WAKES TO VOICE, ANSWERS QUESTIONS APPROPRIATELY. HR 50'S WHEN SLEEPING, UP TO 80'S WHEN AWAKE WITH EPI 4MCG/MIN. RHYTHM CONTINUES TO CHANGE FREQUENTLY BETWEEN IRREGULAR SINUS WITH PVC'S AND JUNCTIONAL. BP STABLE. TF INFUSING AT GOAL, MINIMAL RESIDUALS. DR. GILBERT IN TO ASSESS. DR. VELEZ ALSO IN, NOTIFIED OF CBG RESULTS DESPITE LARGE DOSES OF INSULIN, NO NEW ORDERS AT THIS TIME.
--- NOTE | 2020-12-24 11:50 | NUR ---
UPDATE DR BAINS IN TO ASSESS, NO CHANGES MADE TO VENT SETTINGS, GTT RATES UNCHANGED. LS CLEAR ON R, FINE CRACKLES NOTED IN L BASE, LASIX ADMINISTERED PER ORDERS. ETT SECRETIONS REMAIN COPIUS, THICK, AND BROWN. CARDIAC RHYTHM REMAINS LABILE, RATE 50'S, BP STABLE.
--- NOTE | 2020-12-24 18:29 | NUR ---
END OF SHIFT PT HAD UNEVENTFUL DAY, NO MAJOR CHANGES. VENT SETTINGS UNCHANGED, PROPOFOL AND EPI DRIP RATES UNCHANGED. LS REMAIN CLEAR, DIM IN BASES, LARGE AMOUNTS OF BROWN ETT SECRETIONS TODAY. LOWEST HR 49, AVERAGED 50'S WITH LABILE RHYTHMS PREVIOUSLY NOTED, BP STABLE WITH EPI. PT COMFORTABLE WITH LIGHT SEDATION, RESTED WELL TODAY, ROUSES EASILY AND ANSWERS QUESTIONS APPROPRIATELY. RUE REMAINS RESTRAINED. NO BM, 2200ML URINE OUT AFTER LASIX, CRACKLES RESOLVED. SKIN UNCHANGED, EXTREMS ELEVATED.
--- NOTE | 2020-12-24 19:27 | NUR ---
UPDATE DR. BAINS NOTIFIED OF PT'S CBG'S TODAY, NEW ORDERS FOR INSULIN GTT.
--- NOTE | 2020-12-24 20:45 | NUR ---
ASSUMED CARE AT 1900 PT LAYING IN BED INTUBATED WITH VENT SETTINGS AC 20, TV 420, PEEP 5; FIO2 30%; SMALL AMOUNT OF THICK ALCALA/BROWN SECREATIONS SUCTIONED FROM ETT. PT OCCATIONALLY OPENS EYES AND ANSWERS YES/NO QUESTIONS WEAKLY; COUGH WEAK, GAG ABSENT; MINIMAL MOVEMENT TO RUE; PROPOFOL INFUSING AT 40MCG/KG/MIN. AFEBRILE. HR 50-60; BRADYCARDIA AND IRREGULAR RHYTHM. SBP 120-130; EPI INFUSING AT 4MCG/MIN. PIVOT INFUSING VIA OG AT 45ML/HR (GOAL) WITH 30ML WATER FLUSHES Q4HR; MINIMAL RESIDUALS NOTED. SUPRA-PUBIC CATH IN PLACE AND DRAINING TO GRAVITY. CENTRAL LINE TO LT IJ PATENT AND DRESSING C/D/I. INSULIN GTT STARTED; SEE FLOW SHEET FOR TITRATION. SEE SHIFT ASSESSMENT FOR FULL ASSESSMENT.
[2020-12-25 03:25] LABS: PCO2 Arterial 55.7 mmHg (35-45); PO2 Arterial 86.6 mmHg (80-100); pH Blood Arterial 7.27 (7.35-7.45)
[2020-12-25 03:52] LABS: BASOPHILS ABSOLUTE AUTO 0.04 K/mm3 (0.00-0.23); BASOPHILS PERCENT AUTO 0 % (0-2); EOSINOPHILS ABSOLUTE AUTO 0.08 K/mm3 (0.00-0.68); EOSINOPHILS PERCENT AUTO 1 % (0-6); Hematocrit 33.8 % (37.0-53.0); IMMATURE GRAN ABSOLUTE AUTO 0.35 K/mm3 (0.00-0.10); IMMATURE GRAN PERCENT AUTO 3 % (0-1); LYMPHOCYTES ABSOLUTE AUTO 0.95 K/mm3 (0.84-5.20); LYMPHOCYTES PERCENT AUTO 7 % (21-46); MONOCYTES PERCENT AUTO 7 % (4-13); Mean Corpuscular HGB 26.8 pg (26.0-34.0); Mean Corpuscular HGB Conc 29.6 g/dL (31.5-36.5); Mean Corpuscular Volume 91 fL (80-100); Mean Platelet Volume 9.9 fL (9.1-12.4); NEUTROPHILS ABSOLUTE AUTO 11.04 K/mm3 (1.96-9.15); NEUTROPHILS PERCENT AUTO 83 % (41-73); NRBC ABSOLUTE 0.02 K/mm3 (0.00-0.02); NRBC Auto 0.1 /100 WBC (0.0-0.2); Platelet Count 287 K/mm3 (150-400); RDW Coefficient Variation 16.5 % (11.7-14.2); RDW Standard Deviation 54.4 fL (35.1-46.3); Red Blood Cell Count 3.73 M/mm3 (4.30-5.90); White Blood Cell Count 13.36 K/mm3 (4.00-11.30)
[2020-12-25 04:19] LABS: Anion Gap 5 mmol/L (6-16); Blood Urea Nitrogen 32 mg/dL (8-24); Bun/Creatinine Ratio 55.9 (12.0-20.0); CO2, Blood 27 mmol/L (21-32); Calcium, Blood 7.7 mg/dL (8.5-10.1); Chloride, Blood 112 mmol/L (98-108); Creatinine, Blood 0.57 mg/dL (0.60-1.20); Glomerular Filtration Rate >60 (60-); Glucose, Blood 357 mg/dL (70-99); Magnesium, Blood 2.3 mg/dL (1.6-2.4); Phosphorus, Blood 2.4 mg/dL (2.5-4.9); Potassium, Blood 3.3 mmol/L (3.5-5.5); Sodium, Blood 144 mmol/L (136-145)
--- NOTE | 2020-12-25 04:25 | NUR ---
UPDATE CALLED DR BAINS REGARDING pH OF 7.27 THIS AM; NO NEW ORDERS REGARDING pH. ALSO NOTIFIED OF POTASSIUM 3.3 THIS AM; NEW ORDERS FOR 20 MEQ OF KCL IV PIGGYBACK.
--- NOTE | 2020-12-25 06:10 | NUR ---
END OF SHIFT SUMMARY NO ACUTE EVENTS OVER NIGHT. PT CONT TO BE INTUBATED WITH VENT SETTINGS AC 20, TV 420, PEEP 5, FIO2 30%; SMALL AMOUNT OF SECREATIONS AT THE END OF SHIFT. PT OCCATIONALLY ANSWERS YES/NO QUESTIONS, OPENS EYES, AND PULLS AGAINST RESTRAINTS; NO C/O PAIN; PROPOFOL INFUSING AT 40MCG/KG/MIN. AFEBRILE. HR 50'S. SBP 110-140; EPINEPHRINE INFUSING AT 4MCG/MIN. PIVOT INFUSING VIA OG AT 45ML/HR (GOAL) WITH 30ML WATER FLUSHES Q4HR. SUPRA-PUBIC CATH DRAINING TO GRAVITY; SOME LEAKAGE NOTED FROM INSERT SITE, DRAINAGE SPONGE DRESSING APPLIED. CENTRAL LINE TO LT IJ PATENT AND DRESSING C/D/I. GLUCOSE FLUCTUATING FROM [phone]; INSULIN GTT INFUSING AT 7UNITS/HR. WILL REPORT TO AM RN WHEN AVAILABLE.
--- NOTE | 2020-12-25 07:30 | NUR ---
ASSUMED CARE OF PATIENT FROM THOMAS ZAFAR. PT AWAKENS TO STIMULI, DOESN'T LIKE ORAL CARE OR ORAL SUCTIONING. RAISES RIGHT HAND AND MAKES PINCHING MOTION. VENT SETTINGS AC 20/420/5/30%, TOLERATING WELL. INSULIN GTT @ 7U/HR, PROPOFOL @40MCG/KG, EPI @ 4MCG/MIN, NS @ 10ML/HR. HEART RATE SR/SB WITH PAC'S, TUBE FEEDING PIVOT @45ML/HR W/ 30ML H20. SUPRAPUBIC DRAINING TO GRAVITY WITH GOOD RETURN OF CLEAR YELLOW. PEDAL PULSES PALPABLE THROUGH THE PITTING EDEMA, SHINS WITH RASH/SCALY/ECCHYMOTIC AREAS, COVERED IN ANTIBIOTIC CREAM. OPEN AREAS ON LEFT HAND AND FOREARM COVERED WITH MEPILEX, RIGHT WRIST RESTRAINED FOR SAFETY. PT REPOSITIONED WITH HIPS, LEGS AND ARMS, HEAD WELL.
--- NOTE | 2020-12-25 11:26 | NUR ---
PT CONTINUES WITH SLIGHT DECREASE IN CBG'S. INSULIN KEPT AT 7U/HR FOR STABILITY. PT HAS BEEN MOVED AND ADJUSTED HOURLY WITH THE LIFT. CONTINUES WITH PROPOFOL AT 40MCG/KG, EPI @ 4MCG/MIN
--- NOTE | 2020-12-25 12:00 | NUR ---
PT'S TUBE FEEDING PUT ON HOLD PER 'S ORDERS, WANTING TO GET A DENNIS TO SEE ABOUT THE BACTEREMIA. PT ALSO PUT ON SPONTANEOUS BY , PROPOFOL DOWN TO 20MCG/KG PER . PT MORE ALERT AND TRYING TO COMMUNICATE AROUND THE TUBE, UNABLE TO UNDERSTAND HIM. ENCOURAGING HIM TO REST, REITERATED THAT HE WAS DRIVING THE VENTILATOR AND THAT HE WOULD SOON BE ABLE TO BE OFF IF HE DOES WELL. PRESSURE SUPPORT AT 5.
--- NOTE | 2020-12-25 13:23 | NUR ---
IN TO SEE PATIENT TO DISCUSS A DENNIS, HE ASKED THAT WE KEEP PT NPO AND WORK ON TURNING DOWN THE EPI. EPINEPHRINE NOW @ 3MCG/KG
--- NOTE | 2020-12-25 15:23 | NUR ---
PT CONTINUES TO TRY TO TALK AROUND THE TUBE AND COMMUNICATE. ENCOURAGED TO ANSWER YES AND NO, HE TRIES FOR ONE OR TWO QUESTIONS THEN TRIES TO TALK AGAIN. HE GETS FRUSTRATED, DO I. ASKED BASIC QUESTIONS ABOUT BREATHING, WARMTH, PAIN. CAN'T SEEM TO UNDERSTAND EACH OTHER. TITRATING DOWN THE EPINEPHRINE, NOW AT 2MCG/MIN. PROPOFOL REMAINS AT 20MCG/KG. INSULIN GTT REMAINS AT 10U/HR. WOULD LIKE FOR THE INSULIN TO BE AGRESSIVE AND GET HIS SUGARS UNDER CONTROL FOR HIS BACTEREMIA AND WOUND HEALING. TUBE FEEDING RESUMED AT GOAL.
--- NOTE | 2020-12-25 17:15 | NUR ---
PT AND THIS NURSE BOTH FRUSTRATED. HE CONTINUES TO TRY TO TALK AROUND THE TUBE. I CONTINUE TO REMIND HIM THAT I CANNOT READ HIS LIPS, HE HAS A TUBE IN HIS THROAT. HE CONTINUES TO TRY TO MOUTH WORDS. I ASK HIM YES AND NO QUESTIONS AND HE CONTINUES TO MOUTH WORDS. I TELL HIM TO PLEASE ANSWER YES OR NO AND IT WILL HELP ME HELP HIM. HE CONTINUES TO MOUTH WORDS. PROPOFOL CONTINUES AT 20MCG/KG, INSULIN @ 7U/HR, EPI @ 2MCG/MIN, NS @ 10ML. PT CONTINUES ON SPONTANEOUS WITH PRESSURE SUPPORT OF 5. HE CONTINUES WITH HIS SATS >95%. HIS WOUNDS HAVE BEEN UNCHANGED T/O THE DAY. WHEN ASKED IF HE HAS PAIN, HE DOES NOT ANSWER. HE HAS BEEN REPOSITIONED Q2 AND MORE OFTEN WITH HOURLY BLOOD SUGARS. RIGHT WRIST IS RESTRAINED, HE IS REMINDED THAT IT IS SO HE DOESN'T ACCIDENTLY PULL ANYTHING OUT SHOULD THAT HAND GET TANGLED IN LINES, CORDS, OR TUBES. SUPRAPUBIC REMAINS IN PLACE WITH GOOD OUTPUT, OVER 2.5L. TUBE FEEDING CONTINUES AT 45ML/HR.
--- NOTE | 2020-12-25 18:28 | NUR ---
OMER CONTINUES ON SPONTANEOUS SETTING, PRESSURE SUPPORT OF 5 WITH 30% FIO2. HE IS STILL AT 20MCG/KG ON PROPOFOL, HE IS DOWN TO 2 MCG/MIN OF EPINEPHRINE, WILL CONTINUE TO WEAN PER 'S REQUEST. INSULIN @ 7U/HR. NS @ 10ML/HR. OG WITH PIVOT 1.5 INFUSING AT 45ML/HR, SUPRAPUBIC DRAINING WELL. CONTINUES TO BE FRUSTRATED NOT BEING ABLE TO COMMUNICATE. TRYING HARD TO COMMUNICATE WITH HIM.
--- NOTE | 2020-12-25 20:00 | NUR ---
PATIENT RESTLESS, ATTEMPTING TO SPEAK AROUND ETT. WITH YES AND NO QUESTIONS ABLE TO UNDERSTAND PATIENT IS TIRED AND WANTING TO SLEEP, PROPOFOL INCREASED TO 40 MCG AND VENT PLACED BACK TO AC, PATIENT RELAXING AFTER MAKING NEEDS HEARD. PATIENT HAS HX OF QUADRIPLEGIA, NO MOVEMENT TO LEGS AND GROSS MOVEMENT TO ARMS RIGHT MORE THAN LEFT. ETT TUBE REMAINS IN PLACE WITH VENT SET AT AC 20, TV 420, PEEP 5, FIO2 45% FROM SPONT. OG IN PLACE WITH POVIT 1.5 AT GOAL RATE OF 45 CC/HR. EPI 2 MCG/MIN. WHEN OFF SBP DOWN TO 70'S. INSULIN DRIP CONTINUES, SEE FLOW SHEET.
[2020-12-26 03:53] LABS: Base Excess Venous 3.1 mmol/L; Bicarbonate Venous 26.5 mmol/L (24.0-30.0); PO2 Venous 44.8 mmHg (38-42); pH Blood Venous 7.39 (7.34-7.37)
[2020-12-26 03:59] LABS: BASOPHILS ABSOLUTE AUTO 0.02 K/mm3 (0.00-0.23); BASOPHILS PERCENT AUTO 0 % (0-2); EOSINOPHILS ABSOLUTE AUTO 0.21 K/mm3 (0.00-0.68); EOSINOPHILS PERCENT AUTO 2 % (0-6); Hematocrit 29.4 % (37.0-53.0); Hemoglobin 8.7 g/dL (13.5-17.5); IMMATURE GRAN ABSOLUTE AUTO 0.27 K/mm3 (0.00-0.10); IMMATURE GRAN PERCENT AUTO 3 % (0-1); LYMPHOCYTES ABSOLUTE AUTO 1.05 K/mm3 (0.84-5.20); LYMPHOCYTES PERCENT AUTO 10 % (21-46); MONOCYTES PERCENT AUTO 10 % (4-13); Mean Corpuscular HGB 26.1 pg (26.0-34.0); Mean Corpuscular HGB Conc 29.6 g/dL (31.5-36.5); Mean Corpuscular Volume 88 fL (80-100); Mean Platelet Volume 10.3 fL (9.1-12.4); NEUTROPHILS ABSOLUTE AUTO 7.79 K/mm3 (1.96-9.15); NEUTROPHILS PERCENT AUTO 75 % (41-73); Platelet Count 259 K/mm3 (150-400); RDW Coefficient Variation 16.5 % (11.7-14.2); RDW Standard Deviation 53.5 fL (35.1-46.3); Red Blood Cell Count 3.33 M/mm3 (4.30-5.90); White Blood Cell Count 10.34 K/mm3 (4.00-11.30)
[2020-12-26 04:17] LABS: Anion Gap 1 mmol/L (6-16); Blood Urea Nitrogen 31 mg/dL (8-24); Bun/Creatinine Ratio 53.8 (12.0-20.0); CO2, Blood 30 mmol/L (21-32); Calcium, Blood 7.8 mg/dL (8.5-10.1); Chloride, Blood 115 mmol/L (98-108); Creatinine, Blood 0.58 mg/dL (0.60-1.20); Glomerular Filtration Rate >60 (60-); Glucose, Blood 125 mg/dL (70-99); Magnesium, Blood 2.4 mg/dL (1.6-2.4); Phosphorus, Blood 2.1 mg/dL (2.5-4.9); Potassium, Blood 3.7 mmol/L (3.5-5.5); Sodium, Blood 146 mmol/L (136-145)
--- NOTE | 2020-12-26 07:31 | NUR ---
SUMMARY PATIENT REMAINS INTUBATED AND SEDATED PROPOFOL 35 MCG, PATIENT AWAKENS TO SLIGHT STIMULI, ATTEMPTING TO COMMUNICATE WITH MOUTHING WORDS, AND NODDING YES AND NO TO QUESTIONS. VENT AC 20, TV 420, PEEP 5, FIO2 30% SUCTIONING THICK ALCALA SPUTUM. EPI CONTINUES AT 2 MCG, SBP DOWN TO LOW 80'S WHEN ATTEMPT TO TITRATE DOWN. INSULIN DRIP OFF GLUCOSE 150'S. OG IN PLACE TUBE FEEDING OFF AT MIDNIGHT FOR DENNIS TODAY.
--- NOTE | 2020-12-26 08:00 | NUR ---
INITIAL ASSESSMENT PATIENT INTUBATED. PATIENT COOPERATIVE; APPEARS ANXIOUS AT TIMES TRYING TO COMMUNICATE WITH STAFF. PATIENT ABLE TO NOD AND SHAKE HEAD TO ANSWER YES AND NO QUESTIONS. PATIENT SHAKES HEAD "NO" WHEN ASKED IF IN [place]. PATIENT NODS HEAD "YES" WHEN ASKED IF IN HOSPITAL. PATIENT NODS HEAD "YES" WHEN ASKED IF HIS NAME IS OMER. PATIENT SHAKES HEAD "YES" WHEN ASKED IF YEAR IS 2019. PATIENT QUADRIPLEGIC. CONTRACTURES TO EXTREMITIES. NO MOVEMENT TO LOWER EXTREMITIES. GROSS MOVEMENT TO L ARM. WEAKNESS NOTED TO R ARM. PATIENT AFEBRILE. PATIENT DENIES PAIN. PATIENT ON VENT SETTINGS OF AC 20, TV 420, PEEP 5, AND 30% FIO2. LUNGS COARSE THROUGHOUT, RLL DIMINISHED. MODERATE AMOUNT OF THICK, YELLOW/ ALCALA SPUTUM NOTED UPON ETT SUCTION. PATIENT IN SR WITH PACS, HR IN THE 70S. SBP 80S TO 100. EPINEPHRINE AT 2 MCG/ MINUTE. PITTING EDEMA NOTED. HYPOACTIVE BS NOTED. OG IN PLACE; CLAMPED. TF ON HOLD FOR DENNIS PLANNED FOR THIS AM. BM DOCUMENTED YESTERDAY. SUPRAPUBIC HOLLAND CATHETER IN PLACE, DRAINING DARK YELLOW, CLOUDY URINE. RASH AND EXCORIATIONS NOTED TO BLES. SCALING TO BLES. SCABS AND BLISTER TO R HAND. SKIN TEAR TO L HAND AND L FA. PROPOFOL INFUSING AT 40 MCG/ KG/ MINUTE, INSULIN ON SB, NS TKO. BED LOW, CALL LIGHT IN REACH. WILL CONTINUE TO MONITOR FREQUENTLY THROUGHOUT SHIFT.
--- NOTE | 2020-12-26 09:24 | NUR ---
DENNIS COMPLETE. TF RESUMED PER DR. GILBERT.
--- NOTE | 2020-12-26 11:00 | NUR ---
[facility] Care case conference note: Update on current status and plan of care received via IDT meeting. Plans are to try to extubate today. Pt's advanced directive states he does not want life support for advanced progressive illness, but all other scenarios listed in the advanced directive are initialed in front of as my Provider recommends. tried to reach surrogate decision maker listed on Pt's advanced directive completed in 2017. Copy of advanced directive left on chart. Numbers listed for Diana Gutierrez do not appear to be working numbers. First number gives you a recorded outgoing message asking caller not to call again or a rotating cartoon voice of some odd message. Second number is a fast busy signal or terminated call each time. VM left for pt's Care givers Timoteo and Annette at the number listed on the chart for them, which is also the pt's home ph number. I requested that they return our call and did not leave any other details. All of above reviewed with pt's RN and copy of advanced directive left on the chart for provider/staff review.
--- NOTE | 2020-12-26 12:12 | NUR ---
PATIENT AFEBRILE. PATIENT ON SPONTANEOUS PS 10/5, 30% FIO2. PATIENT IS GOING TO BE STARTED ON CPT FOR MODERATE, THICK SECRETIONS. DR. CRAWFORD PLANS FOR EXTUBATION TOMORROW. HR 80S TO 90S. SBP 90S TO 120S. EPINEPHRINE DRIP AT 1 MCG/ MINUTE. MIDODRINE STARTED. PRECEDEX STARTED TO HELP WITH ANXIETY WHILE PROPOFOL DECREASED FOR SEDATION VACATION AND WEAN. BLOOD SUGAR 311; COVERAGE GIVEN. PATIENT DENIES PAIN. NO OTHER ACUTE CHANGES TO NOTE ON AT THIS TIME. WILL CONTINUE TO MONITOR.
--- NOTE | 2020-12-26 17:16 | NUR ---
PATIENT AFEBRILE. PATIENT PLACED BACK ON AC SETTINGS FROM SPONTANEOUS PRESSURE SUPPORT AFTER COMMUNICATING TO NURSE THAT HE WAS TIRED AND WANTED TO GO BACK TO SLEEP. PATIENT SB TO SR, HR 40S TO 60S. SBP 70S TO 120S. PRECEDEX PLACED ON SB FOR DECREASING HR. PROPOFOL INCREASED TO HELP PATIENT REST. EPINEPHRINE INCREASED FOR HR IN 40S. TF RESIDUAL OF ZERO. NO OTHER ACUTE CHANGES TO NOTE ON AT THIS TIME. WILL CONTINUE TO MONITOR.
--- NOTE | 2020-12-26 21:59 | NUR ---
PATIENT REMAINS INTUBATED AND SEDATED, VENT AC 20, TV 420, PEEP 5, FIO2 30% SUCTIONING THICK ALCALA SPUTUM. PROPOFOL TITRATED DOWN TO 35 MCG, PRECEDEX REMAINS OFF. PATIENT AWAKE NODDING YES AND NO TO QUESTIONS, ATTEMPTING TO MOUTH WORDS, AT TIMES DIFFICULT TO UNDERSTAND WHAT PATIENT IS ATTEMPTING TO CONVEY. EPI DRIP TITRATED TO 2 MCG FOR HEART RATE AND BP CONTROL. OG IN PLACE WITH PIVIT 1.5 AT GOAL RATE OF 45 CC/HR. HX OF QUADRIPLEGIA NO MOVEMENT TO LEGS GROSS MOTOR TO ARMS, RIGHT MORE THAN LEFT. SUPRAPUBIC CATH IN PLACE DRAINING HAZY YELLOW URINE WITH WHITE SEDIMENT.
--- NOTE | 2020-12-27 03:00 | NUR ---
AT APROX 0230 PATIENT NOT HOLDING HIS TIDAL VOLUME AND LARGE AIR LEAK HEARD, BALLOON NOT HOLDING AIR WHEN ATTEMPT TO REFILL. RT CALLED, ETT READJUSTED AND PATIENT REPOSITIONED IN BED. ABLE TO KEEP BALLOON INFLATED
[2020-12-27 05:37] LABS: Mean Corpuscular HGB 25.9 pg (26.0-34.0); Mean Corpuscular Volume 89 fL (80-100); Mean Platelet Volume 10.4 fL (9.1-12.4); Platelet Count 306 K/mm3 (150-400); RDW Coefficient Variation 16.4 % (11.7-14.2); RDW Standard Deviation 53.9 fL (35.1-46.3); Red Blood Cell Count 3.48 M/mm3 (4.30-5.90); White Blood Cell Count 13.27 K/mm3 (4.00-11.30)
[2020-12-27 05:57] LABS: Albumin, Blood 2.1 g/dL (3.4-5.0); Albumin/Globulin Ratio 0.6 (0.8-1.8); Alk Phos 76 U/L (50-136); Anion Gap 4 mmol/L (6-16); Aspartate Aminotrans (AST/SGOT 9 U/L (12-37); Bilirubin, Total 0.2 mg/dL (0.1-1.0); Blood Urea Nitrogen 30 mg/dL (8-24); Bun/Creatinine Ratio 63.7 (12.0-20.0); CO2, Blood 29 mmol/L (21-32); Calcium, Blood 7.9 mg/dL (8.5-10.1); Chloride, Blood 110 mmol/L (98-108); Creatinine, Blood 0.47 mg/dL (0.60-1.20); Globulin, Blood 3.8 g/dL (2.2-4.0); Glomerular Filtration Rate >60 (60-); Glucose, Blood 274 mg/dL (70-99); Phosphorus, Blood 3.2 mg/dL (2.5-4.9); Potassium, Blood 3.9 mmol/L (3.5-5.5); Sodium, Blood 143 mmol/L (136-145); Total Protein, Blood 5.9 g/dL (6.4-8.2)
[2020-12-27 06:19] LABS: Alanine Aminotransfer (ALT/SGP <6 U/L (12-78)
--- NOTE | 2020-12-27 07:32 | NUR ---
SUMMARY PATIENT REMAINS INTUBATED AND SEDATED, PROPOFOL 35 MCG, AWAKENS EASILY ATTEMPTING TO VERBALIZE AROUND ETT, NODDING YES AND NO AT TIMES. ETT BALLOON LEAK BETTER, CONTINUE TO HEAR LEAK WHEN PATIENT COUGHS. VENT AC 20, TV 420, PEEP 5, FIO2 30% SUCTIONING ALCALA SPUTUM VIA ETT. EPI DRIP CONTINUES, ATTEMPT TO TITRATE DOWN TO 1 MCG AND HYPOTENSION CONTINUES. OG REMAINS IN PLACE WITH PIVIT 1.5 AT GOAL RATE OF 45 CC/HR.
--- NOTE | 2020-12-27 09:00 | NUR ---
AM NOTE... ASSUMED CARE OF PT AT 0700. PT IS INTUBATED AND SEDATED ON PROPOFOL AT 35MCG. PT IS SLEEPING BUT WAKES EASILY TO VERBAL STIMULI. VENT SETTINGS ARE AC: 20/420/5/30% WITH O2 SATS >90%. L/S COARSE IN THE UPPER LOBES WITH FINE CRACKELS NOTED IN THE BASES. PT'S SECRETIONS HAVE DECREASED FROM YESTERDAY PER RT AND RN REPORTS. BT PRESENT AND HYPOACTIVE, ABD IS SOFT AND NONTENDER TO PALP. PT HAS DEPENDENT EDEMA NOTED. PT'S SUPER PUBIC CATH IS PATENT AND DRAINING TO GRAVITY. TUBE FEED RUNNING PER ORDERS. PT HAS EPI RUNNING AT 2MCG/MIN TO KEEP MAPS >65 AND HR >50. PLAN IS TO EXTUBATE TODAY. WILL CONTINUE TO MONITOR.
--- NOTE | 2020-12-27 10:59 | NUR ---
PT UPDATE.... AT 0950 PT'S VENTS WERE SWITCHED TO SPONTAINIOUS AT 12/8 AND 30% PT HAS TOLERATED THIS WELL WITH O2 SATS >93%. PROPOFOL WAS STOPPED AT 0950 AND PRECEDEX STARTED AT 0.2MCG AND TITRATED UP TO 0.4MCG. DR. CRWAFORD AT THE BEDSIDE TO ASSESS THE PT. THE PLAN IS TO EXTUBATE TO BIPAP TO THE PT'S HOME SETTINGS. WILL CONTINUE TO MONITOR.
--- NOTE | 2020-12-27 18:28 | NUR ---
SHIFT SUMMARY... PT HAS TOLERATED THE BIPAP ON HIS HOME SETTINGS OF 21/10 AND 25% FIO2 WITH O2 SATS >90%, HOWEVER THERE IS A LEAK PROBLEM WITH THE MASK IF THE PT IS TALKING AND THE PT CONTINUES TO TALK CONSTANTLY WHILE STAFF ARE IN THE ROOM AND EVEN WHEN STAFF IS OUT OF THE ROOM. PT IS EDUCATED ON WHY HE NEEDS TO JUST RELAX AND NOT TALK WHILE ON THE BIPAP, PT NODS HIS HEAD AND THEN STARTS TALKING AGAIN. PT IS CURRRENTLY ON PRECEDEX AT 0.7MCG TO HELP KEEP HIM CALM AND HIS RESPIRATORY RATE MORE CONTROLLED. EPI DRIP IS RUNNING AT 1MCG THIS RN HAD TRIED SEVERAL TIMES T/O THE SHIFT TO STOP THE EPI GTT BUT EVERY TIME THE PT'S MAP DROPS DOWN TO THE MID 50'S. PT'S SUPERPUBIC CATH IS DRAINING TO GRAVITY. PT HAD A BEDBATH AND LINEN CHANGE THIS SHIFT. PT'S LEGS WERE EVERY SWOLLEN AND WHEEPING, THIS WAS TOLD TO THE PROVIDER AND A ONE TIME ORDER OF LASIX WAS OBTAINED AND GIVEN. A DOBHOFF WAS PLACED IN ORDER TO CONTINUE TUBE FEEDS. DOBHOFF MARKING IS 70 AT THE NARES. TUBE FEEDS TO RESUME PER PREVIOUS ORDERS PER DR. CRAWFORD. WILL CONTINUE TO MONITOR UNTIL REPORT IS GIVEN TO ONCOMING RN.
--- NOTE | 2020-12-27 23:17 | NUR ---
PATIENT HAS BEEN RECEIVING THE INCORRECT DOSE/CONCENTRATION OF EPI FOR SEVERAL DAYS. PATIENT HAS BEEN GETTING 2X THE DOSE AND THE PUMP HAD BEEN PROGRAMMED AT 1MCG/MIN WHEN HE HAS ACTUALLY BEEN GETTING 2MCG/MIN. PUMP RE-PROGRAMMED TO 2X/EPI TO MATCH CONCENTRATION. VERIFIED WITH LIZBETH BUENO RN
[2020-12-28 04:09] LABS: Base Excess Venous 5.1 mmol/L; Bicarbonate Venous 28.2 mmol/L (24.0-30.0); PCO2 Venous 45.7 mmHg (38-42); PO2 Venous 43.5 mmHg (38-42); pH Blood Venous 7.42 (7.34-7.37)
[2020-12-28 04:58] LABS: BASOPHILS ABSOLUTE AUTO 0.02 K/mm3 (0.00-0.23); BASOPHILS PERCENT AUTO 0 % (0-2); EOSINOPHILS ABSOLUTE AUTO 0.27 K/mm3 (0.00-0.68); EOSINOPHILS PERCENT AUTO 3 % (0-6); Hematocrit 32.1 % (37.0-53.0); Hemoglobin 9.6 g/dL (13.5-17.5); IMMATURE GRAN ABSOLUTE AUTO 0.58 K/mm3 (0.00-0.10); IMMATURE GRAN PERCENT AUTO 6 % (0-1); LYMPHOCYTES PERCENT AUTO 8 % (21-46); MONOCYTES ABSOLUTE AUTO 0.64 K/mm3 (0.16-1.47); MONOCYTES PERCENT AUTO 6 % (4-13); Mean Corpuscular HGB 25.9 pg (26.0-34.0); Mean Corpuscular HGB Conc 29.9 g/dL (31.5-36.5); Mean Corpuscular Volume 87 fL (80-100); Mean Platelet Volume 10.1 fL (9.1-12.4); NEUTROPHILS ABSOLUTE AUTO 7.97 K/mm3 (1.96-9.15); NEUTROPHILS PERCENT AUTO 78 % (41-73); Platelet Count 319 K/mm3 (150-400); RDW Coefficient Variation 16.3 % (11.7-14.2); RDW Standard Deviation 51.8 fL (35.1-46.3); Red Blood Cell Count 3.71 M/mm3 (4.30-5.90); White Blood Cell Count 10.28 K/mm3 (4.00-11.30)
[2020-12-28 05:15] LABS: Anion Gap 3 mmol/L (6-16); Blood Urea Nitrogen 28 mg/dL (8-24); CO2, Blood 29 mmol/L (21-32); Chloride, Blood 107 mmol/L (98-108); Creatinine, Blood 0.43 mg/dL (0.60-1.20); Glomerular Filtration Rate >60 (60-); Glucose, Blood 279 mg/dL (70-99); Potassium, Blood 3.8 mmol/L (3.5-5.5); Sodium, Blood 139 mmol/L (136-145)
--- NOTE | 2020-12-28 06:20 | NUR ---
END OF SHIFT SUMMARY: LEOBARDO HAS BEEN A/O TO SELF AND WILL FOLLOW COMMANDS. SHAKES HEAD YES/NO TO QUESTIONS AND TALKS CONSTANTLY. SEEMS LIKE HE IS HEADING TOWARDS HIS BASELINE. PATIENT DOESN'T ALWAYS MAKES SENSE BUT HAS STATES HOW HE IS SO HUNGRY AND HE "WANTS PEACH PIE" AND COMPLAINS THAT HE CAN'T SLEEP WITH BIPAP AT NIGHT BECAUSE IT KEEPS HIM UP. EPI DRIP IS NOW AT 1MCG/MIN AND PRECEDEX AT 0.5. GREAT URINE OUTPUT. TURNED Q2 WITH THE CEILING LIFT. PATIENT HAS REMAINED ON BIPAP ALL NIGHT WITH FREQUENT ORAL CARE
--- NOTE | 2020-12-28 18:47 | NUR ---
SUMMARY: PT HAS BEEN CHATTING ALL SHIFT, HIS EPINEPHRINE WAS PUT ON STANDBY AT 0830 THIS AM, HIS HEART RATE AND BLOOD PRESSURE HAVE REMAINED WITHIN ACCEPTABLE LIMITS. AT 0930, HE ASKED ME TO HAVE HIS BIPAP MASK TAKEN OFF, WHEN I TURNED TO SPIKE THE IV BAG OF PRECEDEX AND TURNED BACK TO OMER, HE HAD PULLED OUT HIS DOBBHOFF AND HAD IT IN HIS HAND. DISCUSSED WITH , SHE RECOMMENDED A SWALLOW EVAL AND THEN REPLACEMENT OF THE DOBBHOFF. PT HAD A LARGE BOWEL MOVEMENT AND HE WAS TURNED, CHANGED AND CLEANED. HE TOLERATED WELL. HE HAS CONTINUED TO ASK FOR A CIGARETTE AND AN ASHTRAY, HE CONTINUES TO ASK FOR FOOD. THE DOBBHOFF WAS REPLACED AROUND 1700, XRAY CONFIRMATION. TUBE FEEDING RESTARTED, MED GIVEN. PT CONTINUES ON NON-REBREATHER MASK WITH GOOD SATURATION. WILL REPORT OFF TO FRONT END DEVELOPER DESIGNER.
[2020-12-29 03:56] LABS: BASOPHILS ABSOLUTE AUTO 0.02 K/mm3 (0.00-0.23); BASOPHILS PERCENT AUTO 0 % (0-2); EOSINOPHILS PERCENT AUTO 2 % (0-6); Hematocrit 30.8 % (37.0-53.0); IMMATURE GRAN ABSOLUTE AUTO 0.25 K/mm3 (0.00-0.10); IMMATURE GRAN PERCENT AUTO 2 % (0-1); LYMPHOCYTES ABSOLUTE AUTO 0.62 K/mm3 (0.84-5.20); LYMPHOCYTES PERCENT AUTO 6 % (21-46); MONOCYTES ABSOLUTE AUTO 0.58 K/mm3 (0.16-1.47); MONOCYTES PERCENT AUTO 5 % (4-13); Mean Corpuscular HGB 26.2 pg (26.0-34.0); Mean Corpuscular HGB Conc 29.2 g/dL (31.5-36.5); Mean Corpuscular Volume 90 fL (80-100); Mean Platelet Volume 10.2 fL (9.1-12.4); NEUTROPHILS ABSOLUTE AUTO 9.22 K/mm3 (1.96-9.15); NEUTROPHILS PERCENT AUTO 85 % (41-73); Platelet Count 313 K/mm3 (150-400); RDW Coefficient Variation 16.3 % (11.7-14.2); RDW Standard Deviation 52.9 fL (35.1-46.3); Red Blood Cell Count 3.44 M/mm3 (4.30-5.90); White Blood Cell Count 10.89 K/mm3 (4.00-11.30)
[2020-12-29 03:56] LABS: Base Excess Venous 5.6 mmol/L; Bicarbonate Venous 28.4 mmol/L (24.0-30.0); PCO2 Venous 57.8 mmHg (38-42); PO2 Venous 52.7 mmHg (38-42); pH Blood Venous 7.34 (7.34-7.37)
[2020-12-29 04:12] LABS: Anion Gap 1 mmol/L (6-16); Blood Urea Nitrogen 31 mg/dL (8-24); Bun/Creatinine Ratio 77.9 (12.0-20.0); CO2, Blood 32 mmol/L (21-32); Calcium, Blood 8.2 mg/dL (8.5-10.1); Chloride, Blood 107 mmol/L (98-108); Glomerular Filtration Rate >60 (60-); Glucose, Blood 209 mg/dL (70-99); Potassium, Blood 3.5 mmol/L (3.5-5.5); Sodium, Blood 140 mmol/L (136-145)
--- NOTE | 2020-12-29 06:02 | NUR ---
SHIFT SUMMARY PATIENT DID NOT SLEEP MUCH THRU NIGHT. WHILE ATTEMPTING TO EDUCATE PATIENT ABOUT USE OF BIPAP, PT CONSTANTLY ASKING FOR A CIGARETTE OR SOMETHING TO EAT. OUR CONVERSATIONS OFTEN WENT SOMETHING LIKE THIS; ME- WE NEED YOU TO WEAR THIS BIPAP TONIGHT, IT WILL HELP KEEP YOUR LUNGS INFLATED AND BREATHE EASIER THRUOUGH THE NIGHT PATIENT- CAN YOU LIGHT THIS FOR ME (GESTURING TOWARD HAND?) ME- WE DO NOT ALLOW SMOKING IN THE HOSPITAL PT- OK, WELL CAN I HAVE A SANDWICH? ME- I'M SORRY TY, BUT YOU HAVEN'T BEEN MEDICALLY CLEARED TO SWALLOW WHOLE FOODS QUITE YET, YOU WERE INTUBATED FOR GLORIA (INTERRUPTED) PT- OK, WELL CAN I HAVE A CIGARETTE? ME- YOU WERE INTUBATED FOR A FEW DAYS, YOUR SWALLOWING REFLEX HASNT QUITE COME BACK FULL STRENGTH YET, AND WE STILL DON'T ALLOW SMOKING IN HOSPITALS. PT- WELL CAN YOU JUST LIGHT THIS ONE CIGARETTE FOR ME? ME- SIR WE DO NOT ALLOW SMOKING IN THE HOSPITAL, LET ME CALL ABOUT GETTING A NICOTIN PATCH. PT- OH. WELL, CAN I HAVE A SANDWICH? THIS WOULD GO ON IN THIS PATTERN UNIL I DID WHAT I CAME IN THE ROOM TO DO, OR WOULD COMPLETE WHATEVER I CAME IN THE ROOM TO DO. ONE TIME PATIENT WAS TELLING A STORY ABOUT A FRIEND FROM HIS YOUTH, AND WOULD CONTINUE THE STORY WHILE ON BIPAP. PT WOULD CONTINUE TALKING TO NO ONE IN THE ROOM FOR A EXTENED AMOUNT OF TIME, CONSTANTLY REQUIRING REPOSITIONING OF THE BIPAP MASK. ASSESSMENT IS CHARTED. VSS. WILL CONTINUE TO MONITOR.
[2020-12-29 18:27] LABS: Anion Gap 2 mmol/L (6-16); Blood Urea Nitrogen 32 mg/dL (8-24); Bun/Creatinine Ratio 64.8 (12.0-20.0); CO2, Blood 31 mmol/L (21-32); Calcium, Blood 8.7 mg/dL (8.5-10.1); Chloride, Blood 112 mmol/L (98-108); Creatinine, Blood 0.49 mg/dL (0.60-1.20); Glomerular Filtration Rate >60 (60-); Glucose, Blood 252 mg/dL (70-99); Potassium, Blood 3.6 mmol/L (3.5-5.5); Sodium, Blood 145 mmol/L (136-145)
--- NOTE | 2020-12-29 19:13 | NUR ---
SUMMARY PT HAD BEEN A/O TO PERSON T/O THE DAY. WOULD CONSTANTLY CHATTER IN SOFT VOICE THAT WAS MOSTLY NONSENSICAL. PT HAD WEAK COUGH T/O THE DAY AND HAD TO BE NT SUCTIONED A COUPLE OF TIMES WITH GOOD RESULTS. PT NEVER DESATTED THOUGH. AT 1600 PT TOLD RT THAT HE WAS GETTING TIRED. RT PLACED HIM ON BIPAP AFTER TRYING TO GET A MASK THAT FIT PROPERLY WHICH TOOK ABOUT 45 MINUTES TO GET HIM COMFORTABLE. PT WAS TOLERATING BIPAP FOR ABOUT 20 MINUTES WHEN THERE WAS ECTOPY NOTED ON THE MANNEQUIN MOLD MAKER THEN SATS WERE 48%. PT WAS UNRESPONSIVE AND DUSKY. BIPAP FIO2 IMMEDIATELY INCREASED TO 100% AND DR. RIVAS CALLED TO ROOM. PT WAS PROMPTLY INTUBATED. AFTER INTUBATION PT IS HYPOTENSIVE. 1L BOLUS GIVEN. AFTER BOLUS STARTED HYPOTENSION CONTINUED, DR. RIVAS ORDERED LEVOPHED. WHEN PROPOFOL WAS TURNED DOWN PT WAS ABLE TO OPEN EYE'S ON COMMAND AND WAS NODDING YES AND NO TO QUESTIONS OR COMMENTS. REPORT GIVEN TO JAIRO GUZMAN WHO WILL ASSUME CARE.
[2020-12-29 20:23] LABS: PCO2 Arterial 50.6 mmHg (35-45); PO2 Arterial 131 mmHg (80-100); pH Blood Arterial 7.39 (7.35-7.45)
--- NOTE | 2020-12-29 20:39 | NUR ---
12/29 @ 19:35 WITNESSED BRADYCARDIA, LOW HR OF 33 BPM. GAVE 1 AMP (1 MG) OF ATROPINE, HR IMPROVED TO MID 60S/LOW 70S. BP STABLE, ABLE TO DECREASE LEVOPHED DRIP SLIGHTLY. OBTAINED ORDER FROM DR RIVAS TO START EPINEPHRINE DRIP, ONLY IF HR REACHES LOW 40S. VSS AT THIS TIME. WILL CONTINUE TO MONITOR.
--- NOTE | 2020-12-29 21:46 | NUR ---
12/29 FROM 20:57 - 21:22 PT WAS OFF UNIT TO CT SCAN, VS MONITORED AND STABLE THRUOUT TRIP. NO ADVERSE EVENTS. WILL CONTINUE TO MONITOR.
[2020-12-30 03:49] LABS: BASOPHILS ABSOLUTE AUTO 0.05 K/mm3 (0.00-0.23); BASOPHILS PERCENT AUTO 0 % (0-2); EOSINOPHILS ABSOLUTE AUTO 0.36 K/mm3 (0.00-0.68); EOSINOPHILS PERCENT AUTO 2 % (0-6); Hematocrit 31.5 % (37.0-53.0); IMMATURE GRAN ABSOLUTE AUTO 0.35 K/mm3 (0.00-0.10); IMMATURE GRAN PERCENT AUTO 2 % (0-1); LYMPHOCYTES ABSOLUTE AUTO 0.89 K/mm3 (0.84-5.20); LYMPHOCYTES PERCENT AUTO 5 % (21-46); MONOCYTES ABSOLUTE AUTO 1.04 K/mm3 (0.16-1.47); MONOCYTES PERCENT AUTO 6 % (4-13); Mean Corpuscular HGB 25.6 pg (26.0-34.0); Mean Corpuscular HGB Conc 28.6 g/dL (31.5-36.5); Mean Corpuscular Volume 90 fL (80-100); Mean Platelet Volume 10.2 fL (9.1-12.4); NEUTROPHILS ABSOLUTE AUTO 16.12 K/mm3 (1.96-9.15); NEUTROPHILS PERCENT AUTO 86 % (41-73); Platelet Count 424 K/mm3 (150-400); RDW Coefficient Variation 16.6 % (11.7-14.2); Red Blood Cell Count 3.52 M/mm3 (4.30-5.90); White Blood Cell Count 18.81 K/mm3 (4.00-11.30)
[2020-12-30 04:06] LABS: Albumin, Blood 2.3 g/dL (3.4-5.0); Anion Gap 3 mmol/L (6-16); Blood Urea Nitrogen 31 mg/dL (8-24); Bun/Creatinine Ratio 71.4 (12.0-20.0); CO2, Blood 30 mmol/L (21-32); Calcium, Blood 8.5 mg/dL (8.5-10.1); Chloride, Blood 110 mmol/L (98-108); Creatinine, Blood 0.43 mg/dL (0.60-1.20); Glomerular Filtration Rate >60 (60-); Glucose, Blood 208 mg/dL (70-99); Phosphorus, Blood 3.3 mg/dL (2.5-4.9); Potassium, Blood 3.5 mmol/L (3.5-5.5); Sodium, Blood 143 mmol/L (136-145)
--- NOTE | 2020-12-30 06:38 | NUR ---
SHIFT SUMMARY AFTER TRIP TO CT SCAN, SLOWLY INCREASED PROPOFOL TO MAX OF 45 MCG, HAD TO DECREASE PT BECAME BRADYCARDIC, STARTED EPINEPHRINE DRIP, HR STABLE MID 60S-LOW 80S. MAINTAINED ON LEVOPHED, DID DECREASE TO 3 MCG, BP STABLE. WHEN HR DROPPED WITH INCREASED PROPOFOL, NOTED LOTS OF ECTOPY, SOME JUNCTIONAL BEATS, PVCs. CT SCAN SHOWED BILAT PLEURAL EFFUSIONS AND SMALL AMOUNT OF MUCOUS/DEBRIS IN THE RIGHT MAINSTEM BRONCHUS EXTENDING INTO RIGHT LOWER LOBE, PER IMPRESSION. ASSESSMENT IS CHARTED. VSS. WILL CONTINUE TO MONITOR.
--- NOTE | 2020-12-30 18:47 | NUR ---
SUMMARY PT INTUBATED AND SEDATED WITH PROPOFOL. WILL WAKE EASILY TO VOICE AND WILL NOD YES OR NO TO QUESTIONS. LEVOPHED WAS TITRATED OFF. EPI GTT REMAINS AT 4MCG/MIN. HR 40'S-50'S. CBG HIGH TODAY. DR. RIVAS AWARE AND ORDERED LANTUS TO START TONIGHT. NO OTHER CHANGES THIS SHIFT. NO SIGN OF DISTRESS AT THE MOMENT.
[2020-12-31 04:24] LABS: BASOPHILS ABSOLUTE AUTO 0.04 K/mm3 (0.00-0.23); BASOPHILS PERCENT AUTO 0 % (0-2); EOSINOPHILS ABSOLUTE AUTO 0.27 K/mm3 (0.00-0.68); EOSINOPHILS PERCENT AUTO 2 % (0-6); Hematocrit 28.7 % (37.0-53.0); Hemoglobin 8.3 g/dL (13.5-17.5); IMMATURE GRAN ABSOLUTE AUTO 0.26 K/mm3 (0.00-0.10); IMMATURE GRAN PERCENT AUTO 2 % (0-1); LYMPHOCYTES ABSOLUTE AUTO 1.18 K/mm3 (0.84-5.20); LYMPHOCYTES PERCENT AUTO 8 % (21-46); MONOCYTES ABSOLUTE AUTO 0.87 K/mm3 (0.16-1.47); MONOCYTES PERCENT AUTO 6 % (4-13); Mean Corpuscular HGB 26.1 pg (26.0-34.0); Mean Corpuscular HGB Conc 28.9 g/dL (31.5-36.5); Mean Corpuscular Volume 90 fL (80-100); Mean Platelet Volume 9.5 fL (9.1-12.4); NEUTROPHILS ABSOLUTE AUTO 12.54 K/mm3 (1.96-9.15); NEUTROPHILS PERCENT AUTO 83 % (41-73); Platelet Count 298 K/mm3 (150-400); RDW Coefficient Variation 16.5 % (11.7-14.2); RDW Standard Deviation 54.6 fL (35.1-46.3); Red Blood Cell Count 3.18 M/mm3 (4.30-5.90); White Blood Cell Count 15.16 K/mm3 (4.00-11.30)
[2020-12-31 04:43] LABS: Albumin, Blood 2.3 g/dL (3.4-5.0); Anion Gap 3 mmol/L (6-16); Blood Urea Nitrogen 28 mg/dL (8-24); Bun/Creatinine Ratio 65.7 (12.0-20.0); CO2, Blood 30 mmol/L (21-32); Calcium, Blood 8.2 mg/dL (8.5-10.1); Chloride, Blood 110 mmol/L (98-108); Creatinine, Blood 0.43 mg/dL (0.60-1.20); Glomerular Filtration Rate >60 (60-); Glucose, Blood 195 mg/dL (70-99); Phosphorus, Blood 3.3 mg/dL (2.5-4.9); Potassium, Blood 3.8 mmol/L (3.5-5.5); Sodium, Blood 143 mmol/L (136-145)
--- NOTE | 2020-12-31 06:07 | NUR ---
SHIFT SUMMARY PATIENT SLEPT WELL TONIGHT. AROUND 04:00 DEVELOPED MUCOUS PLUG, VERY QUICKLY DESATURATED TO LOW OF 72%, IMMEDIATELY RECOVERED WITH SUCTIONING. VERY SCANT SUCTIONED FROM ETT, THICK ALCALA IN APPEARANCE. CURRENTLY PT IS ON SPONTANEOUS VENTILATOR SETTING, PROPOFOL WAS TURNED DOWN TO 20 MCG. SKIN AROUND BUTTOCKS HAS GOTTEN MORE PINK/RED DESPITE FREQUENT REPOSITIONING , STILL BLANCHABLE. OTHERWISE NO ACUTE CHANGES OVERNIGHT. ASSESSMENT IS CHARTED. VSS. WILL CONTINUE TO MONITOR.
--- NOTE | 2020-12-31 18:48 | NUR ---
SUMMARY PT INTUBATED AND SEDATED. WAS ON SPONT SETTINGS THIS AM BUT GOT TIRED AND WAS SWITCHED BACK TO AC SETTINGS. PT WAKES EASILY AND WILL NOD YES OR NO. WILL ALSO TRY TO TALK AROUND ETT. REMAINS ON EPI GTT FOR LOW HR WHILE SEDATED. HAS WEEPING EDEMA TO BLE NOW. LASIX GIVEN TODAY AND PT HAD ABOUT 3000ML OF URINE OUT. NO OTHER CHANGES THIS SHIFT.
[2021-01-01 04:17] LABS: BASOPHILS ABSOLUTE AUTO 0.03 K/mm3 (0.00-0.23); BASOPHILS PERCENT AUTO 0 % (0-2); EOSINOPHILS ABSOLUTE AUTO 0.27 K/mm3 (0.00-0.68); EOSINOPHILS PERCENT AUTO 2 % (0-6); Hematocrit 27.9 % (37.0-53.0); Hemoglobin 8.1 g/dL (13.5-17.5); IMMATURE GRAN ABSOLUTE AUTO 0.24 K/mm3 (0.00-0.10); IMMATURE GRAN PERCENT AUTO 2 % (0-1); LYMPHOCYTES PERCENT AUTO 7 % (21-46); MONOCYTES ABSOLUTE AUTO 0.68 K/mm3 (0.16-1.47); MONOCYTES PERCENT AUTO 5 % (4-13); Mean Corpuscular Volume 90 fL (80-100); Mean Platelet Volume 9.9 fL (9.1-12.4); NEUTROPHILS ABSOLUTE AUTO 11.76 K/mm3 (1.96-9.15); NEUTROPHILS PERCENT AUTO 85 % (41-73); Platelet Count 299 K/mm3 (150-400); RDW Coefficient Variation 16.9 % (11.7-14.2); RDW Standard Deviation 54.4 fL (35.1-46.3); Red Blood Cell Count 3.11 M/mm3 (4.30-5.90); White Blood Cell Count 13.88 K/mm3 (4.00-11.30)
[2021-01-01 04:37] LABS: Albumin, Blood 2.3 g/dL (3.4-5.0); Anion Gap 5 mmol/L (6-16); Blood Urea Nitrogen 27 mg/dL (8-24); Bun/Creatinine Ratio 50.9 (12.0-20.0); CO2, Blood 31 mmol/L (21-32); Calcium, Blood 8.2 mg/dL (8.5-10.1); Chloride, Blood 108 mmol/L (98-108); Creatinine, Blood 0.53 mg/dL (0.60-1.20); Glomerular Filtration Rate >60 (60-); Glucose, Blood 187 mg/dL (70-99); Phosphorus, Blood 3.6 mg/dL (2.5-4.9); Potassium, Blood 4.1 mmol/L (3.5-5.5); Sodium, Blood 144 mmol/L (136-145)
--- NOTE | 2021-01-01 05:28 | NUR ---
END OF SHIFT SUMMARY: PATIENT RESTING ON VENT, STILL INTUBATED AND SEDATED, EPI DRIP HAS BEEN DECREASED DOWN FROM 4 TO 1 BUT STILL CAN'T SEEM TO TITRATE COMPLETELY OFF WITHOUT GETTING HYPOTENSIVE WITH A MAP IN THE 50S. PATIENT CONTINUES TO GET SCHEDULED MIDODRINE. PATIENT WILL FOLLOW COMMANDS WHEN ASKED AND SHAKE HEAD YES/NO TO QUESTIONS. HE SEEMS COMFORTABLE TONIGHT. PROPOFOL REMNAINS ON AND TURNED Q2 FOR COMFORT.
--- NOTE | 2021-01-01 07:30 | NUR ---
ASSUMED CARE: REPORT RECEIVED FROM ANA Champion RN. ASSUMED CARE OF THIS PT AT APPROX 0700. ON ASSESSMENT, THE PT IS RESTING QUIETLY W/ PROPOFOL INFUSING AT 40 MCG/KG/MIN. HE AWAKENS EASILY & IS ABLE TO ANSWER YES/NO QUESTIONS BY NODDING HIS HEAD. HE CONTINUOUSLY ATTEMPTS TO COMMUNICATE BY MOUTHING WORDS AROUND ETT BUT IS DIFFICULT TO UNDERSTAND IN THIS WAY. LS ARE DIM IN BASES, VENT SETTINGS: AC 18/450/10/35% W/ O2 SATS > 92%. MONITOR SHOWS SB-SR W/ HR 50-60s, HYPOTENSIVE AT TIMES W/ SBP 90s. EPINEPHRINE DRIP AT 2 MCG/MIN. DOBHOFF IN PLACE TO R NARE W/ GLUCERNA TUBE FEED INFUSING AT GOAL RATE OF 65 ML/HR. CHRONIC SUPRAPUBIC [place]LL[place] PATENT/ DRAINING. SKIN CONDITION OVERALL FRAGILE, EDEMATOUS. Q2H REPOSITIONING TO MAINTAIN SKIN INTEGRITY. WILL CONTINUE TO MONITOR & UPDATE NEEDED.
--- NOTE | 2021-01-01 09:50 | NUR ---
DR BAINS: PROVIDER AT BEDSIDE TO EVAL PT. THE PT IS AWAKE AT THIS TIME & HAS NODDED HEAD "YES" IN REGARDS TO HAVING TRACHEOSTOMY PLACED. BECAUSE THERE IS SOME DIFFICULTY W/ COMMUNICATION, THE PT IS MOUTHING QUESTIONS AROUND THE ETT THAT ARE NOT WELL UNDERSTOOD BY THIS RN & DR BAINS. DR BAINS SUGGESTS THAT AN ATTEMPT BE MADE FOR EXTUBATION TOMORROW SO THAT THE PT IS BETTER ABLE TO COMMUNICATE W/ STAFF MEMBERS & A CONCRETE ANSWER REGARDING TRACH PLACEMENT CAN BE OBTAINED IF HE IS NOT ABLE TO TOLERATE EXTUBATION. THE PT IS AGREEABLE TO THIS PLAN. DR BAINS HAS ALSO ORDERED A PICC LINE BE PLACED SO THAT PT's CL CAN BE REMOVED.
--- NOTE | 2021-01-01 11:50 | NUR ---
spoke with his caregiver services he no longer has his caregiver he is being investigated. He new oil field caser is fátima agosto. the swimming pool serviceperson on his advance directive has not been reachable. We asked his caregiver company to review his home and chart to see if there are any updated documents. They states he saul does not have a next of kin. We will have to follow his advance directive. we will get a ethic consut for major decision for physician support.
--- NOTE | 2021-01-01 17:30 | NUR ---
CENTRAL LINE REMOVAL: CENTRAL LINE TO L JUGULAR ORDERED TO BE REMOVED NOW THAT PICC LINE HAS BEEN PLACED TO YONATHAN. SITE CLEANSED W/ CHLORHEXIDINE & CENTRAL LINE REMOVED AT 1655 W/ 5 MINS MANUAL PRESSURE HELD TO AREA, SITE CHECKED W/ NO BLEEDING NOTED & TEGADERM CHG DRESSING PLACED OVER PUNCTURE SITE. VSS DURING THIS TIME.
--- NOTE | 2021-01-01 18:30 | NUR ---
SHIFT SUMMARY: NO ACUTE CHANGES SINCE PRIOR UPDATES. PT REMAINS INTUBATED & SEDATED W/ PROPOFOL INFUSING AT 40 MCG/KG/MIN. HE IS ANSWERING YES/NO QUESTIONS BY NODDING HIS HEAD & CONTINUES TO MOUTH WORDS AROUND ETT, SOME OF WHICH ARE DISCERNABLE. LS DIM IN BASES, VENT SETTINGS: AC 18/450/10/35% W/ O2 SATS > 92%. MONITOR SHOWS SB W/ HR 40-50s, BP STABLE. EPINEPHRINE OFF SINCE APPROX 1635. DOBHOFF IN PLACE TO R NARE W/ PIVOT 1.5 INFUSING AT INITIAL RATE OF 25 ML/HR W/ 30 ML H2O FLUSH Q4H. TUBE FEED MAY BE ADVANCED TO GOAL RATE OF 35 ML/HR AT APPROX 2015 TONIGHT. SMALL BM x2 THIS SHIFT. SKIN CONDITION OVERALL FRAGILE & EDEMATOUS. BLE NOTED TO BE WEEPING & DISPOSABLE ABSORBENT PADS PLACED UNDER LEGS. Q2H REPOSITIONING TO MAINTAIN SKIN INTEGRITY. WILL CONTINUE TO MONITOR & REPORT OFF TO ONCOMING RN.
[2021-01-02 03:19] LABS: PCO2 Arterial 47.8 mmHg (35-45); PO2 Arterial 68.1 mmHg (80-100); pH Blood Arterial 7.45 (7.35-7.45)
[2021-01-02 04:23] LABS: BASOPHILS ABSOLUTE AUTO 0.02 K/mm3 (0.00-0.23); BASOPHILS PERCENT AUTO 0 % (0-2); EOSINOPHILS ABSOLUTE AUTO 0.17 K/mm3 (0.00-0.68); EOSINOPHILS PERCENT AUTO 2 % (0-6); Hematocrit 27.6 % (37.0-53.0); IMMATURE GRAN ABSOLUTE AUTO 0.18 K/mm3 (0.00-0.10); IMMATURE GRAN PERCENT AUTO 2 % (0-1); LYMPHOCYTES ABSOLUTE AUTO 0.73 K/mm3 (0.84-5.20); LYMPHOCYTES PERCENT AUTO 8 % (21-46); MONOCYTES ABSOLUTE AUTO 0.39 K/mm3 (0.16-1.47); MONOCYTES PERCENT AUTO 4 % (4-13); Mean Corpuscular HGB 25.9 pg (26.0-34.0); Mean Corpuscular Volume 89 fL (80-100); Mean Platelet Volume 10.2 fL (9.1-12.4); NEUTROPHILS PERCENT AUTO 84 % (41-73); Platelet Count 276 K/mm3 (150-400); RDW Coefficient Variation 17.1 % (11.7-14.2); RDW Standard Deviation 54.4 fL (35.1-46.3); Red Blood Cell Count 3.09 M/mm3 (4.30-5.90); White Blood Cell Count 9.19 K/mm3 (4.00-11.30)
[2021-01-02 04:39] LABS: Anion Gap 3 mmol/L (6-16); Blood Urea Nitrogen 29 mg/dL (8-24); Bun/Creatinine Ratio 66.8 (12.0-20.0); CO2, Blood 33 mmol/L (21-32); Calcium, Blood 7.8 mg/dL (8.5-10.1); Chloride, Blood 105 mmol/L (98-108); Creatinine, Blood 0.43 mg/dL (0.60-1.20); Glomerular Filtration Rate >60 (60-); Glucose, Blood 127 mg/dL (70-99); Magnesium, Blood 2.7 mg/dL (1.6-2.4); Phosphorus, Blood 2.7 mg/dL (2.5-4.9); Sodium, Blood 141 mmol/L (136-145)
--- NOTE | 2021-01-02 06:04 | NUR ---
END OF SHIFT SUMAMRY: PATIENT SEEMS VERY AWARE OF CURRENT SITUATION. PATIENT WILL NOD HEAD YES/NO TO QUESTIONS AND FOLLOW COMANNDS. NO VENT CHANGES OVERNIGHT. DISCUSSED WITH MATTHIEU-RT AND NO WEAN THIS MORNING DUE HIGH PEEP. SCANT THICK SECRETIONS SUCTIONED THROUGH ETT. PROPOFOL HAS REMAINED AT 35 TONIGHT AND BACLOFEN GIVEN X1. HR HAS BEEN HOLDING IN 50-60S FOR MOST OF SHIFT, DESPITE DIPPING INTO 40S AT TIMES. EPI HAS REMAINED ON STANDBY ALL NIGHT. PATIENT HAS A FEW LOW BPS OVERNIGHT BUT COMES UP WITH MOVEMENT AND REPOSITIONING. TURNING Q2 AND A BATH REALLY SEEMS TO MAKE HIM FEEL BETTER. AWARE OF POTENTIAL DISCUSSION WITH TEAM REGARDING TRACH PLACEMENT TODAY
--- NOTE | 2021-01-02 11:19 | NUR ---
DR BAINS: PROVIDER AT BEDSIDE TO EVAL PT. BECAUSE OF PT's INCREASED RESPIRATORY SECRETIONS, HE DOES NOT FEEL THAT EXTUBATION WILL OCCUR TODAY. THE PT IS AGREEABLE FOR ORIGINAL PLAN OF ENT CONSULTATION & TRACH PLACEMENT.
--- NOTE | 2021-01-02 13:00 | NUR ---
DR EISENBERG: PROVIDER AT BEDSIDE FOR CONSULTATION REGARING PERC TRACH PLACEMENT. HE HAS SPOKEN W/ DR BAINS & PLANS TO PLACE TRACH AT APPROX 1730 THIS EVENING. DAY SURGERY HAS BEEN CONSULTED & REQUESTED TO [facility] PER DR EISENBERG's REQUEST. THEY HAVE NOTIFIED THIS RN THAT THEY WILL BE IN THE UNIT AT APPROX 1645 TO BEGIN SETUP FOR THE PROCEDURE. DR EISENBERG PLANS TO CONSULT THE PT AT BEDSIDE W/ SEDATION OFF, HE HAS BEEN ABLE TO ANSWER YES/NO QUESTIONS APPROPRIATELY & HAS NO NEXT OF KIN. PERC TRACH CHECKLIST OF SUPPLIES BEING GATHERED BY HEIDY MARES RN.
--- NOTE | 2021-01-02 14:26 | NUR ---
review of pt prognosis and needs with his caregiver team today.
--- NOTE | 2021-01-02 18:43 | NUR ---
01/02/21 1843 ISRAEL DEE LATE ENTRY 0101 History, Chart, Medications and Allergies reviewed before start of procedure. 3-LEAD EKG REVIEWED WITH PHYSICIAN PRIOR TO START OF PROCEDURE. MONITOR INTACT WITH CONTINUOUS PULSE OXIMETRY AND INTERMITTENT BP. PT INTUBUATED. MODERATE SEDATION MEDICATIONS MANAGED BY DRAWING IN HAND.
--- NOTE | 2021-01-02 19:43 | NUR ---
PERC TRACH PLACEMENT / SHIFT SUMMARY: PROCEDURE PLANNED FOR 1729, DAY SURGERY STAFF AT BEDSIDE AT APPROX 1645 FOR SETUP. CHECKLIST ITEMS HAVE BEEN GATHERED. DR BAINS REQUESTS THAT SEDATION VIA FENTANYL, LORAZEPAM, PROPOFOL & ROCCURONIUM BE AVAILABLE - RSI KIT PULLED. DR BAINS & DR EISENBERG HAVE ARRIVED AT BEDSIDE. JUSTINA Julio, RT & JUSTINA Barton, RT, AT BEDSIDE ALONG W/ THIS RN & DAY SURGERY RNs NURIS Barton & LYDIA. 172 - TIME OUT COMPLETED BY NURIS Barton, DAY SURGERY RN. 1729 - PROPOFOL DRIP INCREASED TO 50 MCG/KG/MIN 174 - 100 MCG FENTANYL IVP IN & FLUSHED 174 - 2 MG LORAZEPAM IVP IN & FLUSHED 174 - BRONCH IN PER DR BAINS & DR EISENBERG HAS DETERMINED PUNCTURE SITE FOR TRACH PLACEMENT. 1748 - 25 MG ROCCURONIUM IVP IN & FLUSHED 1750 - INCISION MADE & 8.0 PERCUTANEOUS TRACH INSERTED. BRONCH CAMERA REMOVED. VENTILATOR ATTACHED TO TRACH W/ SETTINGS: AC 18/450/10/30% FIO2. TRACH SUTURED INTO PLACE BY DR EISENBERG. VSS. NO ACUTE CHANGES SINCE TRACH PLACEMENT & PRIOR UPDATES. THE PT REMAINS SEDATED W/ PROPOFOL DRIP AT 55 MCG/KG/MIN. LS DIM IN BASES, O2 SATS > 92%. MONITOR SHOWS SB W/ HR 40-50s. HYPOTENSION W/ SBP 90s IMPROVING W/ SEDATION TITRATION. DOBHOFF IN PLACE TO R NARE W/ TUBE FEEDS RESUMED AFTER TRACH PLACEMENT. CHRONIC URINARY CATH IN PLACE, PATENT/ DRAINING. DIURESIS PER EMAR - SEE I&O. SKIN CONDITION OVERALL FRAGILE, EDEMATOUS. Q2H REPOSITIONING TO MAINTAIN SKIN INTEGRITY. REPORT HAS BEEN GIVEN TO ANA Champion RN TO ASSUME CARE.
[2021-01-03 04:13] LABS: BASOPHILS ABSOLUTE AUTO 0.04 K/mm3 (0.00-0.23); BASOPHILS PERCENT AUTO 0 % (0-2); EOSINOPHILS ABSOLUTE AUTO 0.23 K/mm3 (0.00-0.68); EOSINOPHILS PERCENT AUTO 2 % (0-6); Hematocrit 28.8 % (37.0-53.0); Hemoglobin 8.4 g/dL (13.5-17.5); IMMATURE GRAN ABSOLUTE AUTO 0.47 K/mm3 (0.00-0.10); IMMATURE GRAN PERCENT AUTO 4 % (0-1); LYMPHOCYTES ABSOLUTE AUTO 1.42 K/mm3 (0.84-5.20); LYMPHOCYTES PERCENT AUTO 11 % (21-46); MONOCYTES ABSOLUTE AUTO 0.59 K/mm3 (0.16-1.47); MONOCYTES PERCENT AUTO 5 % (4-13); Mean Corpuscular HGB 26.3 pg (26.0-34.0); Mean Corpuscular HGB Conc 29.2 g/dL (31.5-36.5); Mean Corpuscular Volume 90 fL (80-100); Mean Platelet Volume 10.2 fL (9.1-12.4); NEUTROPHILS ABSOLUTE AUTO 10.05 K/mm3 (1.96-9.15); NEUTROPHILS PERCENT AUTO 79 % (41-73); Platelet Count 314 K/mm3 (150-400); RDW Coefficient Variation 17.2 % (11.7-14.2); RDW Standard Deviation 55.8 fL (35.1-46.3)
[2021-01-03 04:28] LABS: Anion Gap 4 mmol/L (6-16); Blood Urea Nitrogen 37 mg/dL (8-24); Bun/Creatinine Ratio 79.7 (12.0-20.0); CO2, Blood 34 mmol/L (21-32); Calcium, Blood 7.8 mg/dL (8.5-10.1); Chloride, Blood 102 mmol/L (98-108); Creatinine, Blood 0.46 mg/dL (0.60-1.20); Glomerular Filtration Rate >60 (60-); Glucose, Blood 118 mg/dL (70-99); Magnesium, Blood 2.6 mg/dL (1.6-2.4); Phosphorus, Blood 2.7 mg/dL (2.5-4.9); Potassium, Blood 3.4 mmol/L (3.5-5.5); Sodium, Blood 140 mmol/L (136-145)
--- NOTE | 2021-01-03 06:14 | NUR ---
END OF SHIFT SUMMARY: PATIENT IS VERY PLEASANT, NODS HEAD YES/NO TO QUESTIONS, AND WILL LOCALIZE PAIN. MODERATE THICK BLOODY SECRETIONS FROM TRACH PERIODICALLY OVERNIGHT BUT ONLY VERY SMALL AMOUNT OF DRIED BLOOD AROUND ACTUAL TRACH. PATIENT REPOSITIONED Q2 AND FREQUENT ORAL CARE PROVIDED. PATIENT HAS REMAINED IN SB/SR IN 47-60S. EPI DRIP WAS RESTARTED ONLY FOR A VERY SHORT PERIOD OF TIME(LESS THAN 1HR) WHILE OM BREAK FOR A SBP IN 70S. PATIENT HAD ONE LARGE BM AND SEEMS TO BE HAVING MORE EVERY DAY. PROPOFOL AT 35 DOWN FROM 50. K CURRENTLY BEING REPLEATED FOR A K OF 3.4 THIS MORNING. ALL HE WANTS IS "APPLE PIE" :)
--- NOTE | 2021-01-03 10:17 | NUR ---
Dr Enriquez was by and wnted sdation off, trach collar and up in chair. So currently sedtaion off at 0900 and upin chair at 0930. RT placed on 11/15 and did well and went to trach collar at 40% and sats >95%. He continues to be able to communicate his needs. He had another large smear prior to transfer and change linen after cleaning him up. VSS, See EMR. Restraints off right extremity.
--- NOTE | 2021-01-03 11:50 | NUR ---
Reposition in chair, CBG 216 and covered per SEP. Continue to suction copius amounts of thick serosanguinous fluid from trach. Patient only requested a warm blanket. Medicated for pain per request for general body aches.
--- NOTE | 2021-01-03 13:32 | NUR ---
No significant changes with patient. He remains on trach collar at 40% and sats 98%. He has been sleeping since medicated for pain. VSS, See EMR. NS TKO continues. Extremities elevated in chair.
--- NOTE | 2021-01-03 15:30 | NUR ---
Patient remains in chair and on trach collar at 40% FiO2 and sast mid to upper 90%'s. He had thought that he had another BM was small smear and cleaned him up. He has been resting well in chair and we agreed back to bed at 1630. Have suctioned several more time thisk serosanguinous fluid. VSS, See EMR. Patient states breathing fine on trach collar and feels no SOB while on trach collar. =
--- NOTE | 2021-01-03 17:58 | NUR ---
Patient has been placed back in bed and had RT place back on vent at 1645 with vent setting of 18/450/30/10 with sats 97%. PICC line continues to infuse NS TKo. Supra Pubic cath put out 2300 ml/hr. Pivot 1.5 at 35 ml/hr with water flushes. Extremities elevated. He is currently resting and communicates needs with mouthing words. Reduced suctioning from trach unless laying flat incraeses.
--- NOTE | 2021-01-03 20:00 | NUR ---
ASSUMED CARE OF PT AT 1915. REPORT RECEIVED AT BEDSIDE. PT PRESENTS IN BED BED. ACKNOWLEDGES THIS RN UPON INTRODUCTION. PT MOUTHS WORDS FOR REQUESTS. NODS HEAD 'YES' AND 'NO' APPROPRIATELY. PT VENTED PER TRACH. TOLERATING THIS WELL. NO SEDATION IN USE AT THIS TIME. WILL REVIEW CHART AND PLAN OF CARE FOR THIS PT.
--- NOTE | 2021-01-04 00:49 | NUR ---
PT HAS TOLERATED Q 2 HOUR TURNS. HAVE SUCTIONED PT WITH RETURN OF LIGHT BLOOD STAINED SECRETIONS. PT MAINTAINS > 90 PERCENT WITH UNCHANGED VENT SETTINGS. FIO2 30 PERCENT. HAVE MEDICATED PT WITH TYLENOL PER DOTOÑITO FOR COMPLAINT OF GENERALIZED PAIN. NO FURTHER COMPLAINTS. WILL CONTINUE TO MONITOR.
[2021-01-04 04:50] LABS: BASOPHILS ABSOLUTE AUTO 0.03 K/mm3 (0.00-0.23); BASOPHILS PERCENT AUTO 0 % (0-2); EOSINOPHILS ABSOLUTE AUTO 0.18 K/mm3 (0.00-0.68); EOSINOPHILS PERCENT AUTO 2 % (0-6); Hematocrit 29.6 % (37.0-53.0); Hemoglobin 8.7 g/dL (13.5-17.5); IMMATURE GRAN ABSOLUTE AUTO 0.23 K/mm3 (0.00-0.10); IMMATURE GRAN PERCENT AUTO 2 % (0-1); LYMPHOCYTES PERCENT AUTO 7 % (21-46); MONOCYTES PERCENT AUTO 5 % (4-13); Mean Corpuscular HGB 26.4 pg (26.0-34.0); Mean Corpuscular HGB Conc 29.4 g/dL (31.5-36.5); Mean Corpuscular Volume 90 fL (80-100); Mean Platelet Volume 10.7 fL (9.1-12.4); NEUTROPHILS ABSOLUTE AUTO 8.22 K/mm3 (1.96-9.15); NEUTROPHILS PERCENT AUTO 83 % (41-73); Platelet Count 261 K/mm3 (150-400); RDW Coefficient Variation 17.3 % (11.7-14.2); RDW Standard Deviation 56.1 fL (35.1-46.3); Red Blood Cell Count 3.29 M/mm3 (4.30-5.90); White Blood Cell Count 9.86 K/mm3 (4.00-11.30)
[2021-01-04 05:05] LABS: Anion Gap 3 mmol/L (6-16); Blood Urea Nitrogen 34 mg/dL (8-24); Bun/Creatinine Ratio 73.8 (12.0-20.0); CO2, Blood 36 mmol/L (21-32); Calcium, Blood 7.9 mg/dL (8.5-10.1); Chloride, Blood 102 mmol/L (98-108); Creatinine, Blood 0.46 mg/dL (0.60-1.20); Glomerular Filtration Rate >60 (60-); Glucose, Blood 163 mg/dL (70-99); Magnesium, Blood 2.6 mg/dL (1.6-2.4); Phosphorus, Blood 2.3 mg/dL (2.5-4.9); Sodium, Blood 141 mmol/L (136-145)
--- NOTE | 2021-01-04 07:10 | NUR ---
PT HAS BEEN MEDICATED ONCE WITH TYLENOL FOR GENERAL PAIN. NO FURTHER COMPLAINTS. PT ABLE TO MOUTH WORDS TO MAKE HIS NEEDS KNOWN. HAVE SUCTIONED PT PER TRACH WITH RETURN OF BLOODY SECRETIONS. THICK IN NATURE. WILL CONTINUE TO MONITOR PT, AND WILL REPORT OFF TO ONCOMING RN.
--- NOTE | 2021-01-04 08:00 | NUR ---
PT AWAKE AND ALERT. GROSS MOVEMENT TO RIGHT UPPER EXTREMITY-LEFT ARM CONTRACTURE, AND LOWER EXTREMITY PARALYSIS-PT BASELINE. PT ABLE TO MOUTH WORDS AND COMMUNICATE NEEDS. PT REPORTED FEELING "A LITTLE BIT" UNCOMFORTABLE LYING IN THE BED. PT PLACED ON TRACH COLLAR-FIO2 40% AND ASSISTED OOB TO CHAIR UTILIZING CEILING LIFT. ONCE IN THE CHAIR, PT DENIED DISCOMFORT. ECG SHOWS SR TO ST WITH PVC'S. SBP 140'S-MIDODRINE HELD. LUNGS SLIGHTLY DIMINISHED TO THE BASES, BUT MAINTAINS SATS>90% ON THE TRACH COLLAR. TRACH SITE WITH SMALL AMOUNT OF OLD, DRIED BLOOD NOTED, BUT NO REDNESS OR SIGNS OF INFECTION. ABDOMEN OBESE-PT TOLERATING DOBHOFF TF WELL @ GOAL. SUPRA PUBIC CATH INSERTION SITE CLEAR-MODERATE AMOUNT OF CLOUDY, YELLOW URINE TO BSD. LOWER EXTREMITIES EDEMATOUS AND RED-CELLULITIS APPEARANCE NOTED. MODERATE, GENERALIZED EDEMA NOTED. KPHOS REPLACEMENT INFUSING.
--- NOTE | 2021-01-04 12:30 | NUR ---
PT REMAINS UP IN THE CHAIR. HE IS REPORTING 7/10 BACK AND GENERALIZED PAIN. MED WITH FENTANYL 50 MCG IVP X 1. PT DESIRES TO REMAIN UP IN THE CHAIR FOR NOW. VS WDL-SBP CONTINUES TO TREND IN THE 130-140'S. RESPIRATIONS AUDIBLY MOIST AND SATS BRIEFLY DOWN TO 80%-TRACH SUCTIONED FOR MODERATE AMOUNT OF THICK, BLOODY SECRETIONS-SATS RETURNED TO >90%.
--- NOTE | 2021-01-04 12:45 | NUR ---
PT DENIES PAIN. STATES "MUCH BETTER." REMAINS UP IN THE CHAIR-SATS>90% ON TRACH COLLAR-FIO2 40%
--- NOTE | 2021-01-04 14:00 | NUR ---
PT REMAINS UP IN THE CHAIR. HE DENIES PAIN OR SOB AT THIS TIME. PT WISHES TO REMAIN UP IN THE CHAIR. HIPS SHIFTED, HEELS FLOATED, AND PILLOW REPLACED TO LEFT ARM. PT STATES THAT HE WOULD LIKE TO GET BACK TO BED @ APROXIMATELY 1600-WILL DO TRACH CARE AT THAT TIME.
--- NOTE | 2021-01-04 16:30 | NUR ---
PT REPORTING 7/10 GENERALIZED PAIN. SPEAKING VALVE IN PLACE. PT REQUESTED TO GET BACK TO BED. HE STATES THAT HE IS TIRED. RESPIRATIONS AUDIBLY MOIST AND WZ. NEB GIVEN IN LINE WITH TRACH COLLAR. TRACH SUCTIONED FOR LARGE AMOUNT OF THICK, BLOODY SECRETIONS. INNER CANULA CHANGED BY RT WING. TRACH CARE COMPLETED AND TRACH TIES CHANGED. LUNGS SLILGHTLY DIMINISHED IN BASES. MAINTAINS SATS>90% ON TRACH COLLAR AT 40%, BUT PT APPEARS DYSPNEIC. SPEAKING VALVE REMOVED BY RT WING AFTER APROXIMATELY 20 MINUTES.
--- NOTE | 2021-01-04 17:00 | NUR ---
PT STATES "I CAN'T BREATHE!" TRACH PLACED BACK TO VENT AC:18, TV 450, PEEP 10, FIO2 30% ONCE TRACH BACK TO VENT, PT APPEARED TO DRIFT OFF TO SLEEP. SATS>90%
--- NOTE | 2021-01-04 18:25 | NUR ---
PT WIDE AWAKE AND REPORTING FEELING "ANXIOUS AND LIKE I CAN'T BREATHE." PT MADE AWARE THAT HIS SATS ARE>90% ON VENT. PT REQUESTS "CAN'T YOU GIVE ME SOMETHING TO MAKE ME SLEEP?" DR. BAINS MADE AWARE OF PT ANXIETY AND FEELING OF SOB. UPDATED TO CURRENT VS AND STATUS. PT MED WITH ATIVAN 1 MG IVP X 1 @ 1826. PT CONTINUED TO REPORT FEELING ANXIOUS AND PROPOFOL DRIP WAS INITIATED @ 1839.PROPOFOL DRIP INITIATED @ 10 MCG/KG/MIN-PT AWAKE, BUT STATES "I FEEL BETTER." CBG 184 COVERED PER SLIDING SCALE. NEW TF GLUCERNA 1.2 INITIATED @ 25 CC/HR WITH 30 CC H20 EVERY 4 HOUR FLUSH.
--- NOTE | 2021-01-04 19:19 | NUR ---
ASSUMPTION OF CARE PT APPEARS TO BE RESTING COMFORTABLY IN BED. PROPOFOL INFUSING AT 10 MCG/KG/MIN. PT DECLINES HAVING PAIN AT THIS TIME. REQUESTING LOTION FOR HIS LEGS. TRACH/VENT SETTINGS 18/450/60/10%, SUCTIONING SMALL AMOUNT OF RED SECRETIONS. VSS, SBP 100'S, HR 70 NS ON MONITOR, SPO2 97%. PT ATTEMPTS TO MAKE NEEDS KNOW MOUTHING WORDS. SUPRA PUBIC CATH DRAINING TO GRAVITY, CLOUDY YELLOW URINE. LUNG SOUNDS CLEAR/DIMINISHED BASES.
--- NOTE | 2021-01-05 00:29 | NUR ---
UPDATE NO CHANGES TO MIDNIGHT ASSESSMENT. LUNG SOUNDS REMAIN CLEAR WITH DIMINISHED BASES. PT REQUESTING TO BE REPOSITIONED. PT SHARED/MOUTHED "I MISS MY OLD LIFE". WILL CONTINUE TO MONITOR PT'S EMOTIONAL STATUS.
[2021-01-05 05:33] LABS: BASOPHILS ABSOLUTE AUTO 0.02 K/mm3 (0.00-0.23); BASOPHILS PERCENT AUTO 0 % (0-2); EOSINOPHILS ABSOLUTE AUTO 0.18 K/mm3 (0.00-0.68); EOSINOPHILS PERCENT AUTO 2 % (0-6); Hematocrit 28.2 % (37.0-53.0); Hemoglobin 8.2 g/dL (13.5-17.5); IMMATURE GRAN ABSOLUTE AUTO 0.15 K/mm3 (0.00-0.10); IMMATURE GRAN PERCENT AUTO 2 % (0-1); LYMPHOCYTES ABSOLUTE AUTO 0.93 K/mm3 (0.84-5.20); LYMPHOCYTES PERCENT AUTO 11 % (21-46); MONOCYTES PERCENT AUTO 6 % (4-13); Mean Corpuscular HGB 26.3 pg (26.0-34.0); Mean Corpuscular HGB Conc 29.1 g/dL (31.5-36.5); Mean Corpuscular Volume 90 fL (80-100); Mean Platelet Volume 10.9 fL (9.1-12.4); NEUTROPHILS ABSOLUTE AUTO 6.47 K/mm3 (1.96-9.15); NEUTROPHILS PERCENT AUTO 78 % (41-73); Platelet Count 247 K/mm3 (150-400); RDW Coefficient Variation 17.3 % (11.7-14.2); RDW Standard Deviation 56.3 fL (35.1-46.3); Red Blood Cell Count 3.12 M/mm3 (4.30-5.90); White Blood Cell Count 8.25 K/mm3 (4.00-11.30)
[2021-01-05 05:51] LABS: Anion Gap 3 mmol/L (6-16); Blood Urea Nitrogen 29 mg/dL (8-24); Bun/Creatinine Ratio 72.5 (12.0-20.0); CO2, Blood 36 mmol/L (21-32); Chloride, Blood 104 mmol/L (98-108); Glomerular Filtration Rate >60 (60-); Glucose, Blood 129 mg/dL (70-99); Magnesium, Blood 2.8 mg/dL (1.6-2.4); Phosphorus, Blood 2.5 mg/dL (2.5-4.9); Potassium, Blood 3.1 mmol/L (3.5-5.5); Sodium, Blood 143 mmol/L (136-145)
--- NOTE | 2021-01-05 05:55 | NUR ---
UPDATE PT'S DOBHOFF WAS ACCIDENTALLY PULLED, REPLACED WITH NEW DOBHOFF. CHEST XRAY CONFIRMED PLACEMENT IN STOMACH. PER DR. SHELBY SILVA TO USE. WILL RESUME TF AT 45 ML/HR WITH 30 Q4H WATER FLUSHES. TF TO BE INCREASED TO GOAL RATE OF 65 AT 0900 TODAY (01/05).
--- NOTE | 2021-01-05 06:15 | NUR ---
SHIFT SUMMARY PT PLEASANT T/O SHIFT, GETS FRUSTRATED WHEN TRYING TO COMMUNICATE WITH STAFF AND IS UNABLE TO GET HIS MESSAGE UNDERSTOOD. ATTEMPTS MADE TO USE PICTURE/LETTER BOARD TO COMMUNICATE. MINIMAL SLEEP THIS SHIFT. VENT DETACHED FROM TRACH TWICE THIS SHIFT, PT SPO2 DROPS TO MID 80'S AND PT BECOMES VERY ANXIOUS. PROPOFOL INCREASED TO 20 MCG AND PRN ATIVAN GIVEN X1. PT HAD SMALL CLEAR/MUCOUSY BM. LOTS OF PAIN WITH TURNING, ESPECIALLY WHEN REPOSITIONING BLE. TF INCREASED TO 45 ML/HR THIS SHIFT WITH 30 Q4H WATER FLUSHES.
--- NOTE | 2021-01-05 09:05 | NUR ---
ASSUMED CARE REPORT FROM IKE GUZMAN. PT RESTING IN BED. PER TRACH 8.0, VENT SETTINGS AC 18/450/10/30%. PT UP TO CHAIR, CHANGED TO TRACH COLLAR, 60%. TOLERATING WELL. SPEAKING VALVE IN PLACE WHEN RT AT BEDSIDE. PT DENIES PAIN OR COMPLAINTS. IN GOOD SPIRITS. FOLLOWS DIRECTIONS, A&OX 3. DENIES NEEDS. LUNGS CLEAR. MODERATE AMOUNT OF THICK BLOODY SECRETIONS. PT STATES HE IS ABLE TO GET INTO MOUTH AND SWALLOW. ABD FIRM, DISTENDED. HYPOACTIVE BT. TUBE FEEDS AT 45 ML/HR c 30 ML FLUSH VIA DOBHOFF. WILL INCREASE TO GOAL THIS SHIFT. SKIN FRAGILE AND IN POOR CONDITION, SEE SKIN ASSESSMENT AND PHOTOS. 3+ EDEMA TO LOWER EXTREMITIES. SUPRAPUBIC CATH IN PLACE, CLOUDY YELLOW URINE c SEDIMENT OUT. VSS. SR, RATE 80'S. BP STABLE. WILL CONTINUE TO MONITOR.
--- NOTE | 2021-01-05 12:00 | NUR ---
TRACH COLLAR/DOBHOFF REMOVAL PT ON TRACH COLLAR FOR APPROX 3 HOURS. PT PULLED COLLAR OFF, O2 SATS DECREASED TO MID 80'S. PT REQUESTING TO GET PLACED BACK ON VENT, RT NOTIFIED. ENCOURAGED PT TO REMAIN ON COLLAR FOR A LITTLE WHILE LONGER. WHEN RT ROUNDED, PT HAD PULLED DOBHOFF OUT. CONSULTED DR RIVAS. D/T POSSIBLY BEING ABLE TO MANAGE PO INTAKE TOMORROW, DOBHOFF TO REMAIN OUT FOR REST OF DAY UNTIL REASSESSMENT BY SPEECH THERAPY TOMORROW.
--- NOTE | 2021-01-05 17:22 | NUR ---
SHIFT SUMMARY PT REMAINED ON VENT MOST OF SHIFT, SEE PREVIOUS NOTE, SETTINGS UNCHANGED. AC 18/450/10/30%. TOLERATING WELL. PROPOFOL HAS BEEN ON STANDBY MOST OF SHIFT. MODERATE AMOUNT OF THICK WHITE SECRETIONS THROUGH TRACH. LUNGS DIM IN BASES. WEAK COUGH. PT ABLE TO FOLLOW COMMANDS. MAKE NEEDS KNOWN. SPEECH EVAL THIS SHIFT. PT ALSO PULLED DOBHOFF THIS SHIFT. WILL REASSESS NEED FOR REPLACEMENT TOMORROW POST SPEECH REEVAL. PT UP IN CHAIR MOST OF SHIFT. TOLERATED WELL. HOLLAND PATENT, DRAINING CLOUDY YELLOW URINE TO GRAVITY. 2 CLEAR JELLY BMS THIS SHIFT. VSS. WILL CONTINUE TO MONITOR UNTIL REPORT TO ONCOMING NURSE.
--- NOTE | 2021-01-05 19:23 | NUR ---
ASSUMPTION OF CARE REPORT RECEIVED FROM MELODIE GUZMAN. PT AWAKE IN BED, DENIES PAIN AT THIS TIME. NS TKO INFUSING. TF STOPPED DUE TO PULLED DOBHOFF, WILL HOLD OFF REPLACING OVERNIGHT FOR SPEECH REEVALUATION TOMORROW. VENT VIA TRACH SETTINGS AC 18/450/10/30%. SUCTIONED OUT MODERATE AMOUNT OF THICK ALCALA SECRETIONS DURING ORAL CARE. LUNGS CLEAR/DIMINISHED BASES. VSS. SUPRA PUBIC CATHETER DRAINING CLOUDY YELLOW URINE WITH SEDIMENT TO GRAVITY.
[2021-01-06 04:49] LABS: BASOPHILS ABSOLUTE AUTO 0.03 K/mm3 (0.00-0.23); BASOPHILS PERCENT AUTO 0 % (0-2); EOSINOPHILS ABSOLUTE AUTO 0.11 K/mm3 (0.00-0.68); EOSINOPHILS PERCENT AUTO 1 % (0-6); Hematocrit 28.6 % (37.0-53.0); Hemoglobin 8.1 g/dL (13.5-17.5); IMMATURE GRAN ABSOLUTE AUTO 0.14 K/mm3 (0.00-0.10); IMMATURE GRAN PERCENT AUTO 2 % (0-1); LYMPHOCYTES ABSOLUTE AUTO 0.87 K/mm3 (0.84-5.20); LYMPHOCYTES PERCENT AUTO 10 % (21-46); MONOCYTES ABSOLUTE AUTO 0.59 K/mm3 (0.16-1.47); MONOCYTES PERCENT AUTO 7 % (4-13); Mean Corpuscular HGB 25.9 pg (26.0-34.0); Mean Corpuscular HGB Conc 28.3 g/dL (31.5-36.5); Mean Corpuscular Volume 91 fL (80-100); Mean Platelet Volume 10.6 fL (9.1-12.4); NEUTROPHILS ABSOLUTE AUTO 6.93 K/mm3 (1.96-9.15); NEUTROPHILS PERCENT AUTO 80 % (41-73); Platelet Count 250 K/mm3 (150-400); RDW Coefficient Variation 17.8 % (11.7-14.2); RDW Standard Deviation 59.7 fL (35.1-46.3); Red Blood Cell Count 3.13 M/mm3 (4.30-5.90); White Blood Cell Count 8.67 K/mm3 (4.00-11.30)
[2021-01-06 05:05] LABS: Albumin, Blood 2.5 g/dL (3.4-5.0); Anion Gap 2 mmol/L (6-16); Blood Urea Nitrogen 25 mg/dL (8-24); Bun/Creatinine Ratio 54.6 (12.0-20.0); CO2, Blood 35 mmol/L (21-32); Calcium, Blood 7.9 mg/dL (8.5-10.1); Chloride, Blood 107 mmol/L (98-108); Creatinine, Blood 0.46 mg/dL (0.60-1.20); Glomerular Filtration Rate >60 (60-); Glucose, Blood 116 mg/dL (70-99); Phosphorus, Blood 2.8 mg/dL (2.5-4.9); Potassium, Blood 3.4 mmol/L (3.5-5.5); Sodium, Blood 144 mmol/L (136-145)
--- NOTE | 2021-01-06 06:40 | NUR ---
SHIFT SUMMARY PT SLEPT MAJORITY OF SHIFT. PROPOFOL INFUSING AT 10 MCG, PRN FENTANYL GIVEN ONCE FOR PAIN. VENT SETTINGS UNCHANGED, AC 18/450/10/30%. LUNGS CLEAR WITH DIMINISHED BASES. PT REFUSED CPT TWICE THIS SHIFT, HAD TO BE ENCOURAGED TO RECEIVE ORAL CARE AND REPOSITIONING T/O SHIFT. PT MORE WITHDRAWN THIS SHIFT. ONE CLEAR MUCOUSY BM THIS SHIFT. VSS. PT CONTINUES TO ASK FOR FOOD/DRINK, GETS FRUSTRATED WHEN REMINDED ABOUT UPCOMING SPEECH REEVAL. WILL CONTINUE TO MONITOR UNTIL HANDOFF TO ONCOMING RN.
--- NOTE | 2021-01-06 08:30 | NUR ---
ASSUMED CARE REPORT FROM IKE GUZMAN. PT RESTING IN BED. A&O, FOLLOWS COMMANDS. PT ON VENT AT SHIFT CHANGE, AC 18/450/10/30%. UP TO CHAIR c LIFT, CHANGED TO TRACH COLLAR 60%. TOLERATING WELL. DECREASED SECRETIONS FROM YESTERDAY, THICK, WHITE c BLOOD STREAKED. LUNGS DIMINISHED IN BASES. ABLE TO MAKE NEEDS KNOWN MOUTHING WORDS OR USING SPEAKING VALVE. PT HAS INCREASED WOB c SPEAKING VALVE. REMOVED WHEN NOT IN ROOM. ABD ROUND, FIRM, HYPOACTIVE BT. PT c GENERALIZED PAIN c CARE, LIFTS, MOVING EXTREMITIES. REPORTS INCREASED PAIN OVER LAST THREE YEARS. SUPRAPUBIC CATH IN PLACE, DRAINING CLOUDY YELLOW URINE TO GRAVITY. VSS. PICC TO LUE, DRESSING C/D/I. WILL CONTINUE TO MONITOR.
--- NOTE | 2021-01-06 15:05 | NUR ---
Palliative care visit: Requested by staff to come and visit with David this afternoon. Per report, pt has made multiple statements to multiple staff member that he wants to . Rec'd an update from nursing and POLLS OR SURVEYS INTERVIEWER in ICU. They report pt has voiced wanting to . He pulled out his dubhoff feeding tube last night and disconnected his ventilator tubing several times earlier today. Went into room with nursing this afternoon. Bedside nurse placed talk valve for pt as he is has the trach collar vent in place. Pt is open to talking with this marketing underwriter. Pt answers questions. He was not able to state who the president was, he states "I'm a-political." He stated that he was at [facility] and that is was spring time. He originally stated that it was 1968, however after he said that he said "That's not right." [facility] is [facility] He denies that he wants to at this time. He states that was having a rough time when he made those statements about wanting to . Explained that he is scheduled for a consultation for a PEG tube placement on Friday for feeding. He is agreeable at this time for a PEG placement. He appears to track the conversation however it is difficult to assess if he is completely able to make an informed decision. Would recommend a mini mental exam to determine cognition and ability to make decisions for himself. At this time staff are caring for him directed by the AD on file. PC will continue to assist with advanced care planning as needed.
--- NOTE | 2021-01-06 15:05 | NUR ---
PT MAKING STATEMENTS REGARDING WISHING TO END LIFE TO OTHER STAFF. I QUESTIONED PT TWICE, PT DENIED BOTH TIMES. APPROX 2 HOURS AGO, PT REPETATIVELY DISCONNECTED VENT, WHEN STAFF ENTERED ROOM TO RECONNECT, PT CONTINUED TO MAKE STATEMENTS REGARDING DYING. PT ACKNOWLEDGED NEEDING VENT FOR LIFE SUPPORT AND THAT HE DID NOT WANT IT. PT USING PROFANITIES c STAFF. STATES "JUST KILL ME" MULTIPLE TIMES. EDUCATED PT ON CONTINUING CURRENT TREATMENTS OR TRANSITIONING TO END OF LIFE CARE. PT STATES HE WANTS TO PURSUE END OF LIFE CARE. UPDATED DR RIVAS AND CALLED [facility]. ALSO MADE MULTIPLE CALLS TO ATTEMPT TO FIND CAREGIVERS OR FAMILY. JIM ON [employer] WAS PT'S CAREGIVER FOUR YEARS AGO AND NO LONGER WANTS TO MAKE DECISIONS FOR PT. CALL PLACED TO ONCALL STAFF AT [facility] BY YOUR SIDE. THEY STATED THAT STONEY WOULD BE THE TICKET CHOPPER ASSEMBLER, SISTER SEVERAL YEARS AGO AND RODNEY IS UNDER INVESTIGATION. WHEN DONNA FROM [facility] WAS IN ROOM, PT STATES "I DONT WANT TO , IM HAVING A BAD DAY."
--- NOTE | 2021-01-06 18:22 | NUR ---
SHIFT SUMMARY PT HAS REMAINED ON TRACH COLLAR 60% SINCE LAST NOTE, APPROX 1400. TOLERATING WELL. MODERATE AMOUNT OF THICK CLEAR BLOOD STREAKED SPUTUM. ABLE TO CLEAR SECRETIONS. ONLY TOLERATES SPEAKING VALVE FOR SHORT PERIODS OF TIME. THEN HAS INCREASED WOB. SPEECH REEVAL THIS AM, NOT CLEARED FOR PO INTAKE. CONSULT FOR PEG TUBE FRIDAY. OK BY DR RIVAS TO HOLD DOBHOFF UNTIL THAT TIME. COOPERATIVE c CARE AT THIS TIME. C/O PAIN, MEDICATED c FENTANYL ORDERED. VSS. HOLLAND PATENT, DRAINING CLOUDY YELLOW URINE TO GRAVITY. WILL CONTINUE TO MONITOR UNTIL REPORT TO ONCOMING NURSE.
--- NOTE | 2021-01-06 20:15 | NUR ---
ASSUMPTION OF CARE REPORT RECEIVED FROM MELODIE GUZMAN. PT RESTING IN BED. PT PLACED BACK ON VENT VIA TRACH FOR CPT TREATMENT BY RT. VENT SETTINGS AC 18/450/10/30%, TOLERATING WELL. PT DECLINED ATTEMPT TO PLACE BACK ON TRACH COLLAR AFTER CPT WAS COMPLETED. LUNGS CLEAR WITH DIMINISHED BASES. HR 50-60'S, SBP 115'S, SP02 99%. PT ALERT AND COOPERATIVE WITH CARE. SUPRAPUBIC CATH DRAINING CLOUDY YELLOW URINE TO GRAVITY. NS TKO INFUSING.
[2021-01-07 04:40] LABS: BASOPHILS ABSOLUTE AUTO 0.01 K/mm3 (0.00-0.23); BASOPHILS PERCENT AUTO 0 % (0-2); EOSINOPHILS ABSOLUTE AUTO 0.11 K/mm3 (0.00-0.68); EOSINOPHILS PERCENT AUTO 1 % (0-6); Hematocrit 28.5 % (37.0-53.0); Hemoglobin 8.1 g/dL (13.5-17.5); IMMATURE GRAN ABSOLUTE AUTO 0.08 K/mm3 (0.00-0.10); IMMATURE GRAN PERCENT AUTO 1 % (0-1); LYMPHOCYTES ABSOLUTE AUTO 0.74 K/mm3 (0.84-5.20); LYMPHOCYTES PERCENT AUTO 10 % (21-46); MONOCYTES ABSOLUTE AUTO 0.43 K/mm3 (0.16-1.47); MONOCYTES PERCENT AUTO 6 % (4-13); Mean Corpuscular HGB 26.2 pg (26.0-34.0); Mean Corpuscular HGB Conc 28.4 g/dL (31.5-36.5); Mean Corpuscular Volume 92 fL (80-100); Mean Platelet Volume 10.6 fL (9.1-12.4); NEUTROPHILS ABSOLUTE AUTO 6.37 K/mm3 (1.96-9.15); NEUTROPHILS PERCENT AUTO 82 % (41-73); Platelet Count 256 K/mm3 (150-400); RDW Coefficient Variation 17.2 % (11.7-14.2); RDW Standard Deviation 57.7 fL (35.1-46.3); Red Blood Cell Count 3.09 M/mm3 (4.30-5.90); White Blood Cell Count 7.74 K/mm3 (4.00-11.30)
[2021-01-07 05:29] LABS: Albumin, Blood 2.5 g/dL (3.4-5.0); Anion Gap 6 mmol/L (6-16); Blood Urea Nitrogen 21 mg/dL (8-24); Bun/Creatinine Ratio 52.5 (12.0-20.0); CO2, Blood 30 mmol/L (21-32); Chloride, Blood 108 mmol/L (98-108); Glomerular Filtration Rate >60 (60-); Glucose, Blood 88 mg/dL (70-99); Phosphorus, Blood 2.8 mg/dL (2.5-4.9); Potassium, Blood 3.5 mmol/L (3.5-5.5); Sodium, Blood 144 mmol/L (136-145)
--- NOTE | 2021-01-07 07:07 | NUR ---
SHIFT SUMMARY PT RESTING IN BED. A&O, FOLLOWING COMMANDS. CONTINUES ON VENT, SETTINGS AC 18/450/10/30%. HOLLAND DRAINING CLOUDY YELLOW URINE WITH SEDIMENT TO GRAVITY. VSS. LUNGS CLEAR WITH DIMINISHED BASES. BOWEL TONES HYPOACTIVE, ABD TENDER PER PT. PT REMOVED TRACH FROM VENT TWICE THIS SHIFT. AGREEABLE TO RECEIVING CARE T/O SHIFT. HANDOFF TO DAYSMEMELODIE BARRETT RN.
--- NOTE | 2021-01-07 09:22 | NUR ---
ASSUMED CARE REPORT FROM IKE GUZMAN AT 0700. PT ON VENT AT SHIFT CHANGE, 18/450/10/30%. PT UP TO CHAIR c CELING LIFT, PLACED ON TRACH COLLAR 50%. TOLERATING WELL. PLACED SPEAKING VALVE, PT CONTINUES TO MOUTH WORDS IF SPEAKING VALVE NOT WORKING. LUNGS DIMINISHED IN BASES. PT ABLE TO CLEAR SECRTIONS. PT REPORTS CHRONIC PAIN, 11/20. MEDICATED c FENTANYL ORDERED. ABD FIRM, DISTENDED. TENDER TO PALPATION. HYPOACTIVE BT. SUPRAPUBIC CATH, DRAINING CLOUDY YELLOW URINE TO GRAVITY. SKIN IN POOR CONDITION, SEE SKIN ASSESSMENT. VSS. WILL CONTINUE TO MONITOR.
[2021-01-07 14:42] LABS: International Normalized Ratio 1.05; Prothrombin Time Results 11.3 Sec (9.7-11.5)
--- NOTE | 2021-01-07 17:29 | NUR ---
SHIFT SUMMARY PT ON TRACH COLLAR AT THIS TIME, 30%. ON VENT MIDDAY. PT BECAME IRRITABLE AROUND 1400 FOR APPROX 2 HOURS. COUGHING AND ALARMING VENT, WHEN ASKED WHY HE SAID THAT HE LIKE TO HEAR THE NOISE. LUNGS DIM IN BASES. DECREASED SECRETIONS THIS SHIFT. PT UP TO CHAIR FOR APPROX HALF OF SHIFT. DIURESED THIS SHIFT, 1600 ML CLOUDY YELLOW URINE OUT. VSS. WILL CONITNUE TO MONITOR UNTIL REPORT TO ONCOMING NURSE.
--- NOTE | 2021-01-07 23:04 | NUR ---
SOFT WRIST RESTRAINT APPLIED TO R WRIST TO PREVENT REMOVAL OF TRACH COLLAR AND OTHER LINES. PT HAS REMOVED TRACH COLLAR MULTIPLE TIMES AND HAS REMOVED PULSE OX FROM FINGER BY PUTTING IN MOUTH AND PULLING STRIP FROM FINGER. ATTEMPTED ALTERNATIVES PRIOR TO RESTRAINT BEING PLACED. MD NOTIFIED, ORDER PLACED. WILL CONTINUE TO ASSESS.
[2021-01-08 05:27] LABS: Albumin, Blood 2.7 g/dL (3.4-5.0); Anion Gap 8 mmol/L (6-16); Blood Urea Nitrogen 19 mg/dL (8-24); Bun/Creatinine Ratio 39.4 (12.0-20.0); CO2, Blood 29 mmol/L (21-32); Chloride, Blood 109 mmol/L (98-108); Creatinine, Blood 0.48 mg/dL (0.60-1.20); Glomerular Filtration Rate >60 (60-); Glucose, Blood 79 mg/dL (70-99); Potassium, Blood 3.2 mmol/L (3.5-5.5); Sodium, Blood 146 mmol/L (136-145)
--- NOTE | 2021-01-08 06:32 | NUR ---
SHIFT SUMMARY PT SLEEPING, AROUSABLE TO VERBAL STIMULI. HAS GONE BETWEEN AGITATED AND RESTING T/O THIS SHIFT. SOFT WRIST RESTRAINT REMAINS IN PLACE TO R WRIST DUE TO REMOVING OF TRACH COLLAR/VENT. PT PLACED BACK ON VENT AT 0400 DUE TO INCREASED WORK OF BREATHING ON TRACH COLLAR. VENT SETTINGS AC 18/450/10/30%. SUPRA PUBIC CATH DRAINING TO GRAVITY. NS TKO INFUSING. PRN ATIVAN GIVEN X1, HALDOL GIVEN X2 THIS SHIFT. WILL CONTINUE TO MONITOR UNTIL REPORT GIVEN TO ONCOMING RN.
--- NOTE | 2021-01-08 08:00 | NUR ---
INITIAL ASSESSMENT PATIENT CALM, COOPERATIVE. PATIENT BEING VENTILATED INTO TRACH. PATIENT ABLE TO ANSWER YES AND NO QUESTIONS WITH NODDING AND SHAKING OF HEAD. PATIENT ORIENTED TO SELF, PLACE, SURROUNDINGS, FOLLOWING COMMANDS. HX OF QUADRAPLEGIA. NO MOVEMENT TO CONTRACTED LEFT ARM AND HAND. GROSS MOVEMENT TO RIGHT ARM. NO MOVEMENT NOTED TO BLES. PATIENT AFEBRILE. PATIENT DENIES PAIN. 8.0 NON-FENESTRATED TRACH IN PLACE. AC 18, TV 450, PEEP 10 AND 30% FIO2. RHONCHI NOTED IN RLL; ALL OTHER LOBES CLEAR TO AUSCULTATION. SCANT AMOUNT OF THICK, ALCALA SPUTUM SUCTIONED FROM TRACH. PATIENT IN SR, HR 70S TO 80S. SBP 1-TEENS TO 120S. PATIENT HAS PITTING EDEMA. ABDOMEN MODERATELY DISTENDED, SOFT, WITH HYPERACTIVE BS NOTED. PATIENT NPO. NO FEEDING TUBE IN PLACE. SUPRAPUBIC HOLLAND DRAINING DARK YELLOW, CLOUDY URINE WITH SEDIMENT. SKIN FRAGILE. SCABS SCATTERED TO ARMS AND LEGS. LEGS RASHY, EXCORIATED, PEELING. BLISTER NOTED TO MID CHEST AND R INDEX FINGER. SKIN TEARS NOTED TO L HAND AND L FA. NS INFUSING TKO. PATIENT RECEIVING 40 MEQ KCL FOR POTASSIUM OF 3.2 THIS AM. BED LOW, CALL LIGHT IN REACH. WILL CONTINUE TO MONITOR PATIENT FREQUENTLY THROUGHOUT SHIFT.
--- NOTE | 2021-01-08 09:00 | NUR ---
DR. ABURTO INFORMED OF POTASSIUM OF 3.2 AND THAT PATIENT RECEIVING [address] ABURTO STATED NO NEED TO GET REPEAT POTASSIUM AFTER INFUSING COMPLETE. DR. ABURTO INFORMED THAT URINE CLOUDY WITH SEDIMENT. NO ORDERS OBTAINED AT THIS TIME.
--- NOTE | 2021-01-08 12:00 | NUR ---
PATIENT AFEBRILE. PATIENT DENIES PAIN. PATIENT ON TRACH COLLAR AT 60% FIO2. LUNGS CLEAR IN UPPER LOBES AND DIMINISHED IN LOWER LOBES. MODERATE AMOUNT OF THIN, YELLOW/ WHITE SPUTUM SUCTIONED FROM TRACH. PATIENT IN ST, HR IN THE LOW 100S. SBP 130S TO 140S. PATIENT HAD MEDIUM SIZED, CLEAR, JELLY BM. PATIENT OOB TO CHAIR WITH CEILING LIFT. CALL LIGHT IN REACH. NO OTHER ACUTE CHANGES TO NOTE ON AT THIS TIME. WILL CONTINUE TO MONITOR.
--- NOTE | 2021-01-08 16:30 | NUR ---
PATIENT AFEBRILE. PATIENT HAS HAD MANY MORE PERIODS OF ANXIETY THIS AFTERNOON VS MORNING. PATIENT CONTINUES TO TRY AND MOUTH WORDS TO NURSE DESPITE NURSE STATING SHE CAN NOT UNDERSTAND PATIENT AND TO GIVE NURSE TIME TO PLACE SPEAKING VALVE. WORD SALAD NOTED ONCE PASSY BERNARDINO IN PLACE. PATIENT BECOMES SOB WITH CONSTANT TALKING. PATIENT REMAINS SATTING 90% AND GREATER ON TRACH COLLAR AT 60% FIO2. PATIENT IN SR TO ST WITH BBB. HR 90S TO LOW 100S. SBP 150S TO 160S. CLINIMIX INFUSING AT 90 MLS/ HOUR. NO OTHER ACUTE CHANGES TO NOTE ON AT THIS TIME. WILL CONTINUE TO MONITOR.
--- NOTE | 2021-01-08 18:56 | NUR ---
SHIFT SUMMARY PATIENT ORIENTED TO SELF, HOSPITAL, NURSE, FOLLOWING SIMPLE COMMANDS. PATIENT CONTINUES TO BE CONFUSED ABOUT TOWN, YEAR, EVENT. PATIENT HAS HAD MORE PERIODS OF ANXIETY IN AFTERNOON THAN IN MORNING. WITH INCREASED ANXIETY, PATIENT HAS BEEN TRYING TO MOUTH WORDS TO NURSE EVEN WHEN NURSE HAS TOLD PATIENT THAT UNABLE TO PLACE PASSY BERNARDINO FOR A FEW MINUTES AND THAT HE IS NOT ABLE TO BE UNDERSTOOD WITHOUT IT. ONCE SPEAKING VALVE IN PLACE PATIENT HAVING WORD SALAD. PATIENT HAS REMAINED AFEBRILE. PATIENT HAS DENIED PAIN THIS SHIFT. PATIENT ON VENT SETTINGS OF AC 18, TV 450, PEEP 10 AND 30% FIO2 THIS AM. PATIENT HAS BEEN ON TRACH COLLAR AT 60% FIO2. PATIENT IN SR TO ST WITH BBB, HR 70S TO LOW 100S. SBP 1-TEENS TO 170S. PATIENT HAD 1 MEDIUM, CLEAR, JELLY BOWEL MOVEMENT THIS SHIFT. PATIENT STARTED ON PERIPHERAL NUTRITION AND IS PENDING PEG TUBE PLACEMENT ON FRIDAY. HOLLAND DRAINED 1850 MLS OF DARK YELLOW, CLOUDY URINE WITH SEDIMENT. PATIENT RECEIVED SCHEDULED LASIX. NYSTATIN OINTMENT ORDERED FOR REDDENED GROIN/ ANUPAMA FOLDS. PATIENT RECEIVED 40 KCL FOR POTASSIUM OF 3.2 THIS AM. MINI MENTAL EXAM PERFORMED BY SPEECH THERAPIST THIS AM. PATIENT OOB TO CHAIR MOST OF DAY. INNER CANNULA CHANGED BY RT. BLOOD SUGARS 97 AND 105. PATIENT APPEARS COMFORTABLE AT THIS TIME. BED LOW, CALL LIGHT IN REACH. REPORT WILL BE GIVEN TO ONCOMING SUPERVISOR LENS GENERATING NURSE SHORTLY.
--- NOTE | 2021-01-08 21:04 | NUR ---
ASSUMED CARE FROM RADHA, PT SLEEPING, AROUSES WITH TOUCH AND VOICE. HE ASKS FOR WATER, DENIED. HE ASKED FOR COLD WASHCLOTH. HE HAD HIS ORAL CARE DONE AND HE REALLY LIKED THAT, THE NYSTATIN CREAM WAS APPLIED TO THE ABDOMINAL/HIP/GROIN FOLDS PER ORDERS, HIS FOLDS ARE HOT TO THE TOUCH AND UPPER THIGHS REMAIN EDEMATOUS AND TIGHT. BLE SCALY,RED, CRUSTY. PT'S FACE WASHED AND EYES CLEANED, HE SMILED.
--- NOTE | 2021-01-08 21:58 | NUR ---
PT NOTED TO HAVE ELEVATED BP, ASKED IF HE WAS IN PAIN, HE SAID YES. HE WAS TOLD THAT WE WERE GOING TO TURN HIM AND GIVE HIM A SUPPOSITORY, HE TOLD US TO BE CAREFUL. PT NOTED TO HAVE CLEAR JELLY LIKE RETURN FROM HIS RECTUM, SUPPOSITORY STAYED IN UPON TURNING AND EXCRETING THE CLEAR JELLY. SMALL AMOUNT NOTED.
[2021-01-09 05:14] LABS: Magnesium, Blood 2.4 mg/dL (1.6-2.4)
[2021-01-09 05:27] LABS: Alanine Aminotransfer (ALT/SGP <6 U/L (12-78); Albumin, Blood 2.6 g/dL (3.4-5.0); Albumin/Globulin Ratio 0.6 (0.8-1.8); Alk Phos 236 U/L (50-136); Anion Gap 5 mmol/L (6-16); Aspartate Aminotrans (AST/SGOT 10 U/L (12-37); Bilirubin, Direct 0.1 mg/dL (0.0-0.3); Bilirubin, Indirect 0.3 mg/dL (0.1-0.7); Bilirubin, Total 0.4 mg/dL (0.1-1.0); Blood Urea Nitrogen 25 mg/dL (8-24); Bun/Creatinine Ratio 63.1 (12.0-20.0); CO2, Blood 32 mmol/L (21-32); Calcium, Blood 7.9 mg/dL (8.5-10.1); Chloride, Blood 108 mmol/L (98-108); Globulin, Blood 4.6 g/dL (2.2-4.0); Glomerular Filtration Rate >60 (60-); Glucose, Blood 181 mg/dL (70-99); Sodium, Blood 145 mmol/L (136-145); Total Protein, Blood 7.2 g/dL (6.4-8.2)
--- NOTE | 2021-01-09 06:16 | NUR ---
SUMMARY: OMER HAS DONE WELL TONIGHT, HE REMAINS ON THE TRACH COLLAR, HE WAS MOVED FROM 60% TO 40% AROUND 0400. AROUND 0530 HE BEGAN TELLING ME HE COULDN'T BREATHE, HIS SATS HAVE MAINTAINED >97% AND RESP.PATTERN HAS BEEN GOOD. HE WAS ENCOURAGED AND GIVEN SOME ATIVAN TO HELP WITH HIS ANXIETY. RT WAS NOTIFIED AND WILL CHECK ON HIM WHEN THEY ARE AVAILABLE. HE HAS BEEN ABLE TO SLEEP MUCH OF THE NIGHT, MEDICATED FOR PAIN X2. HIS BOWEL TONES ARE BEING HEARD AUDIBLY AT BEDSIDE, NO RESULTS FROM HS SUPPOSITORY. URINE OUTPUT CONTINUES DARK URVASHI CLOUDY SEDIMENT RETURN. COUGH OCC, MOIST SOUNDING, WITH MINIMAL RETURN OF ALCALA YELLOW SPUTUM, VIA TRACHEAL SUCTION. PT HAS BEEN TURNED AND REPOSITIONED T/O THE NIGHT, ALWAYS WITH A CAUTIONARY "BE CAREFUL" TO US. SKIN STILL TAUT ON THIGHS/LEGS/ARMS. LAB THIS AM WITH K+ AT 3.0, CALL TO WITH ORDERS RECEIVED. WILL REPORT OFF TO NEXT SHIFT WHEN AVAILABLE.
--- NOTE | 2021-01-09 10:59 | NUR ---
AM NOTE... ASSUMED CARE OF PT AT 0700. PT IS A&O TO HIMSELF, AND FOLLOWING DIRECTIONS, PT IS UNABLE TO SPEAK D/T HIS TRACH AT THIS TIME. PT HAS TRACH COLAR ON WITH 40% FIO2 WITH O2 SATS >96%. PT'S L\S DIM T/O. PT IS IN SR/ST W/BBB IN THE 90'S-100'S. PT HAS DEPENDENT GENERALIZED EDEMA NOTED. BT PRESENT AND HYPOACTIVE, ABD IS SOFT AND NONTENDER TO PALP. PT'S SUPERPUBIC IS PATENT AND DRAINING TO GRAVITY. PER REPORT PT HAS BEEN ON THE TRACH COLAR ALL NIGHT AND SLEPT WELL. DR. EISENBERG IS PLANNING TO COME VISIT THE PT AND CHANGE OUT THE TRACH THIS AFTERNOON. WILL CONITNUE TO MONITOR.
--- NOTE | 2021-01-09 13:16 | NUR ---
PT UPDATE.... DR. EISENBERG AT THE BEDSIDE AT 1235 TO SWITCH OUT THE TRACH, TRACH CARE WAS DONE PRIOR TO THE CHANGE OUT AND A NEW SHILEY 8.0 FENISTRATED TRACH WAS PLACED BY , PLACEMENT WAS VERIFIED BY BRONCHOSCOPE IN THE ROOM D/T IT "BEING TIGHT DURING REMOVAL AND PLACMENT" PER DR. EISENBERG. PT'S O2 SATS DROPPED DOWN TO 82% WHEN THE TRACH COLLAR WAS OFF FOR APROX 2 MINS. THE CUFF WAS NOT INFLATED D/T THE PT NOT NEEDING TO BE ON THE VENT AT THIS TIME. PER DR. EISENBERG ONLY RELFATE THE CUFF IF PT NEEDS TO GO BACK ON THE VENT. PT TOLERATED THE SWITCH WELL. WILL CONTINUE TO MONITOR.
--- NOTE | 2021-01-09 18:02 | NUR ---
SHIFT SUMMARY.... NO ACUTE NEGATIVE CHANGES NOTED THIS SHIFT. PT'S SBP HAS BEEN IN THE 160'S-170'S DR. ABURTO AWARE NO NEW ORDERS AT THIS TIME. PT'S TRACH HAS BEEN SUCTIONED SEVERAL TIMES THIS SHIFT BY THIS RN, SECRETIONS ARE VERY THICK, ALCALA/PINK IN COLOR. PT HAS BEEN ON THE TRACH COLLAR ALL SHIFT, SETTINGS ARE CURRENTLY AT 35%FIO2 WITH O2 SATS>91%. PT HAD 2 LARGE CLEAR JELLY BMs THIS SHIFT, NO STOOL NOTED JUST CLEAR JELLY. BT CONTINUE TO BE HYPOACTIVE, ABD IS SOFT AND NONTENDER TO PALP. CLINIMIX IS RUNNING PER ORDERS, PT IS TO GET A PEG TUBE PLACEMENT THIS FRIDAY. WILL CONTINUE TO MONITOR UNTIL REPORT IS GIVEN TO ONCOMING RN.
--- NOTE | 2021-01-09 20:41 | NUR ---
ASSUMED CARE FROM THOMAS GATICA. R/T WAS WITH PATIENT, NEEDED TO FIND THE VEST FOR CPT, PT TURNED FOR PLACEMENT, GROANS IN PAIN. UNHAPPY WITH ANY MOVEMENT. ATTEMPTS TO REPOSITION LEGS AND BUTTOCKS, TO PATIENT SATISFACTION. LEGS CONTINUE WITH THE SCALY, SCAB, REDNESS, WOUND MIST RUBBED ON, PT EXPRESSED THAT FELT BETTER. OINTMENT PLACED IN THE GROIN FOLDS AND INNER THIGHS. S/P SITE LOOKS GOOD, NO EVIDENCE OF LEAKING WITH GOOD DRAINAGE. ABDOMEN SOFT, DENIES ANY TENDERNESS. LUNGS DIMINISHED, DENIES NEED FOR SUCTIONING AT THIS TIME. TRACH SITE RED AND SWOLLEN BUT DENIES ANY NEEDS. TRACH COLLAR AT 30% WITH SATS >90%.
--- NOTE | 2021-01-09 21:18 | NUR ---
WENT IN TO CARE FOR PATIENT, REPOSITION, GIVE INSULIN. HE IS ABLE TO TALK AROUND HIS TRACH, WORDS. HE WAS COMMUNICATING WELL, SUCTIONED HIS TRACH, REPOSITIONED, ALL TO HIS SATISFACTION AND ASSISTANCE VERBALLY. THEN HE ASKED FOR WATER, I TOLD HIM HE CAN'T HAVE IT AT THIS TIME BECAUSE OF HIS ASPIRATION, HE ASKED AGAIN, AGAIN I SAID NO AND HE SAID, "FUCK YOU, BITCH". I TOLD HIM I DIDN'T CARE FOR THAT AND SAID I WOULD BE LEAVING HIS ROOM FOR NOW.
--- NOTE | 2021-01-09 22:43 | NUR ---
OMER WAS AT 30% SINCE THE START OF SHIFT, AND HE HAS BEEN DROPPING DOWN TO THE MID 80'S FOR THE LAST 20 MINUTES. INCREASED HIM BACK TO 35% FOR THE TIME BEING WHILE HE IS SLEEPING.
--- NOTE | 2021-01-09 23:57 | NUR ---
OMER IS SPITTING AT ME AND BEING AGGRESSIVE BECAUSE I TOLD HIM HE COULDN'T HAVE A CIGARETTE, THAT HE WAS IN THE ICU AND NOT ABLE TO SMOKE.
[2021-01-10 05:12] LABS: BASOPHILS ABSOLUTE AUTO 0.01 K/mm3 (0.00-0.23); BASOPHILS PERCENT AUTO 0 % (0-2); EOSINOPHILS ABSOLUTE AUTO 0.09 K/mm3 (0.00-0.68); EOSINOPHILS PERCENT AUTO 1 % (0-6); Hematocrit 29.2 % (37.0-53.0); Hemoglobin 8.2 g/dL (13.5-17.5); IMMATURE GRAN ABSOLUTE AUTO 0.05 K/mm3 (0.00-0.10); IMMATURE GRAN PERCENT AUTO 1 % (0-1); LYMPHOCYTES ABSOLUTE AUTO 0.58 K/mm3 (0.84-5.20); LYMPHOCYTES PERCENT AUTO 6 % (21-46); MONOCYTES ABSOLUTE AUTO 0.58 K/mm3 (0.16-1.47); MONOCYTES PERCENT AUTO 6 % (4-13); Mean Corpuscular HGB 25.5 pg (26.0-34.0); Mean Corpuscular HGB Conc 28.1 g/dL (31.5-36.5); Mean Corpuscular Volume 91 fL (80-100); Mean Platelet Volume 10.6 fL (9.1-12.4); NEUTROPHILS ABSOLUTE AUTO 7.82 K/mm3 (1.96-9.15); NEUTROPHILS PERCENT AUTO 86 % (41-73); Platelet Count 257 K/mm3 (150-400); RDW Coefficient Variation 16.8 % (11.7-14.2); Red Blood Cell Count 3.21 M/mm3 (4.30-5.90); White Blood Cell Count 9.13 K/mm3 (4.00-11.30)
[2021-01-10 05:28] LABS: Anion Gap 3 mmol/L (6-16); Blood Urea Nitrogen 27 mg/dL (8-24); Bun/Creatinine Ratio 75.6 (12.0-20.0); CO2, Blood 32 mmol/L (21-32); Chloride, Blood 109 mmol/L (98-108); Creatinine, Blood 0.36 mg/dL (0.60-1.20); Glomerular Filtration Rate >60 (60-); Glucose, Blood 175 mg/dL (70-99); Potassium, Blood 3.3 mmol/L (3.5-5.5); Sodium, Blood 144 mmol/L (136-145)
--- NOTE | 2021-01-10 06:25 | NUR ---
OMER HAS BEEN SLEEPING SINCE AROUND MIDNOC, HE IS TOLERATING THE TRACH COLLAR WELL AT 35%. HE CONTINUES TO TRY TO TALK AROUND THE TRACH, ABLE TO COMMUNICATE FAIRLY WELL. HE DID COMPLAIN THAT HIS NOSE WAS DRY, OINTMENT GIVEN. NO FURTHER ISSUES THIS SHIFT.
--- NOTE | 2021-01-10 07:36 | NUR ---
AM NOTE... ASSUMED CARE OF PT AT 0700. PT IS A&O TO SELF AND FOLLOWING DIRECTIONS AT TIMES. PT HAS AN 8.0 FENISTRATED TRACH THAT WAS CHANGED OUT YESTERDAY. PT IS ON THE TRACH COLLAR AT 40%FIO2 WITH O2 SATS >90%. L/S COARSE AND DIM T/O. BT PRESENT AND HYPOACTIVE, ABD IS SOFT AND NONTENDER TO PALP. SUPERPUBIC CATH IS PATENT AND DRAINING TO GRAVITY. PT'S VS STABLE AT THIS TIME. PT HAS GENERALIZED DEPENDENT EDEMA. CLINIMIX IS RUNNING PER ORDERS AT 90MLS/HR, PT IS TO HAVE A PEG TUBE PLACEMENT TOMORROW. WILL CONTINUE TO MONITOR.
--- NOTE | 2021-01-10 18:36 | NUR ---
SHIFT SUMMARY... NO ACUTE NEGATIVE CHANGES NOTED THIS SHIFT. PT'S VS HAVE BEEN STABLE. PT HAS BEEN CHANGED TO PCU STATUS. PT HAS BEEN ON THE TRACH COLLAR FOR APROX 48 HOURS, PT'S FIO2 HAS BEEN 30-40% T/O THE SHIFT. PT IS TO HAVE HIS PEG TUBE PLACEMENT TOMORROW. PT WAS UP IN THE CHAIR FOR APROX 4 HOURS THIS SHIFT. PT HAS NOT HAD A BM THIS SHIFT. SUPERPUBIC CATH IS PATENT AND DRAINING TO GRAVITY. PT HAS HAD LARGE AMOUNTS OF THICK ALCALA TRACHIAL SECRETIONS SUCTIONED THIS SHIFT. WILL CONTINUE TO MONITOR UNTIL REPORT IS GIVEN TO ONCOMING RN.
--- NOTE | 2021-01-11 01:36 | NUR ---
REPORT RECIEVED FROM KAYLA GUZMAN, CONOR TO ROOM FROM ICU @5206. 02 SATS 100% ON 8L FI02 40% VIA TRACH. REVIEWED AND AGREE WITH KAYLA GUZMANCORROSION ENGINEER. PATIENT RECIEVED ORAL CARE AND Q2 HOUR REPOSITIONING. PATIENT 02 SATS DECREASED TO 85%, WHEN ENTERING THE ROOM PATIENT REMOVED OXYGEN FROM OVER THE TRACH AND WAS PULLING AT THE TRACH. PATIENT WOULD NOT AGREE TO STOP PULLING AT TUBES AND CORDS. CALLED AND ORDERS FOR RIGHT WRIST RESTRAINT IN PLACE. VSS, NO ACUTE CHANGES. CALL LIGHT IN REACH.
[2021-01-11 04:59] LABS: Anion Gap 2 mmol/L (6-16); Blood Urea Nitrogen 29 mg/dL (8-24); Bun/Creatinine Ratio 77.3 (12.0-20.0); CO2, Blood 32 mmol/L (21-32); Chloride, Blood 108 mmol/L (98-108); Creatinine, Blood 0.38 mg/dL (0.60-1.20); Glomerular Filtration Rate >60 (60-); Glucose, Blood 151 mg/dL (70-99); Potassium, Blood 4.3 mmol/L (3.5-5.5); Sodium, Blood 142 mmol/L (136-145)
--- NOTE | 2021-01-11 04:59 | NUR ---
SHIFT SUMMARY PATIENT IS ALERT AND ORIENTED X SELF AND FOLLOWING DIRECTIONS, SEEMS TO UNDERSTAND WHERE HE IS, HARD TO ASSESS BECAUSE PATIENT ONLY MOUTHS WORDS. PATIENT STILL ATTEMPTING TO PULL AT LINES AND CORDS. PATIENT QUADRAPELEGIC WITH SOME MOVEMENT IN RUE. RUE WRIST RESTRAINT IN PLACE TO KEEP CORDS AND TRACH IN PLACE. PATIENT ASKING FOR THINGS LIKE A CIGARETTE AND GETTING ANGRY WHEN TOLD NO. 02 SATS 100% ON 8L 40%FI02 VIA TRACH. Q2 HOURS TURNING AND ORAL CARE COMPLETE. VSS, NO ACUTE CHANGES, CALL LIGHT IN REACH.
--- NOTE | 2021-01-11 16:19 | NUR ---
PT TO PROCEDURE PT TO PROCEDURE AT THIS TIME. RT ASSIST IN TRACH ADJUSTMENTS FOR TRANSPORT. HC RN AND THIS RN SIGNED BLOOD CONSENT WITH VERBAL CONSENT FROM PT.
--- NOTE | 2021-01-11 18:50 | NUR ---
SHIFT SUMMARY PT ALERT AND ORIENTED. MOUTHS YEAR, LOCATION. IRRITABLE. PT TURNED Q 2 HRS. REFUSES TURNS AT TIMES. CLINIMIX GTT. UROSTOMY WNL. TRACH SUCTIONED T/O SHIFT. OXYGEN SATURATION MAINTAINED ABOVE 92% ON 10 L OF OXYGEN AND 60% FIO2 VIA TRACH COLLAR. PT TO THIS AFTERNOON FOR PEG TUBE PLACEMENT. POST OP VITALS WNL. SITE WNL. DRESSING C/D/I. PT PULLED TRACH COLLAR OFF TRACH WITH RESTRAINT ON. SAYS HE "WANTS IT OUT." PT HAS SOFT WRIST RESTRAINT ON R HAND AT THIS TIME. WILL CONT TO MONITOR UNTIL REPORT GIVEN TO NIGHTSHIFT RN.
[2021-01-12 05:59] LABS: Anion Gap 2 mmol/L (6-16); Blood Urea Nitrogen 28 mg/dL (8-24); Bun/Creatinine Ratio 78.2 (12.0-20.0); CO2, Blood 31 mmol/L (21-32); Calcium, Blood 7.8 mg/dL (8.5-10.1); Chloride, Blood 107 mmol/L (98-108); Creatinine, Blood 0.36 mg/dL (0.60-1.20); Glomerular Filtration Rate >60 (60-); Glucose, Blood 124 mg/dL (70-99); Potassium, Blood 4.6 mmol/L (3.5-5.5); Sodium, Blood 140 mmol/L (136-145)
--- NOTE | 2021-01-12 06:22 | NUR ---
SHIFT SUMMARY PT A&OX4. PT ABLE TO MOUTH WORDS AND MAKE VOCAL SOUNDS. Q4H NEURO CHECKS REMAIN UNCHANGED. SP02>92% ON 40%-60% WITH TRACH W/ 8-10L 02 COVERING TRACH COLLAR. TRACH CARE PERFORMED THIS SHIFT, DRESSING CHANGED BY RN, INNER CANNULA CHANGED BY RT. SUCTIONING PERFORMED PRN. TELEMTRY READS NSR, HR 80'S. PT C/O OF PAIN "ALL OVER". MEDICATED PER EMAR. PT HAS NEWLY PLACED PEG TUBE, ROTATED X1 PER ORDERS. CLINIMIX INFUSED PER EMAR. Q2H REPOSITIONING, PT REFUSED SOME REPOSITIONING. CALL LIGHT IN REACH. WILL GIVE REPORT TO ONCOMING NURSE.
--- NOTE | 2021-01-12 08:00 | NUR ---
pt is alert, perhaps some confusion at times, pt calling freq for suctioning, he has been suctioned a number of times with trach care this am, he mouths words which is very difficult to understand, hrr, tele in place running sr per monitor, see bebeto bryant noted, picc line to cristela site is clear and patent, supra pubic cath draining cloudy urine, skin is fragile, with scattered wounds, moves right arm, restraint was removed this am, call light in reach.
--- NOTE | 2021-01-12 08:00 | NUR ---
UPDATE: Pt pulling at restraint. Following directions, agreed to not pull at trach if restraint it were discontinued. Took restraint off. Provided oral care, trach care, medicated for pain and repostiioned. Pt did not pull at trach and followed all directions. Restraint left off. Call light in reach. Pt appears comfortable. Will continue to monitor.
--- NOTE | 2021-01-12 18:33 | NUR ---
pt resting in bed, calls for suctioning freq, pulls his o2 off of his trach, sats go to the high 80's, pops right back up to the 90's when replaced, tube feed started at 25mls hr at 1800. no further changes this shift. call light in reach.
[2021-01-13 04:40] LABS: Anion Gap 4 mmol/L (6-16); Blood Urea Nitrogen 23 mg/dL (8-24); Bun/Creatinine Ratio 61.2 (12.0-20.0); CO2, Blood 30 mmol/L (21-32); Calcium, Blood 7.8 mg/dL (8.5-10.1); Chloride, Blood 106 mmol/L (98-108); Creatinine, Blood 0.38 mg/dL (0.60-1.20); Glomerular Filtration Rate >60 (60-); Glucose, Blood 126 mg/dL (70-99); Magnesium, Blood 2.4 mg/dL (1.6-2.4); Potassium, Blood 4.3 mmol/L (3.5-5.5); Sodium, Blood 140 mmol/L (136-145)
--- NOTE | 2021-01-13 05:31 | NUR ---
SHIFT SUMMARY PT ALERT, FOLLOWS DIRECTIONS, MOUTHS WORDS TO COMMUNICATE. SP02>90% W/ TRACH. SUCTIONED MULTIPLE TIMES THIS SHIFT BY RN WELL RT. INNER CANULA AND DRESSING CHANGED. PT PULLED AT OXYGEN MULTIPLE TIMES DURING SHIFT AND WOULD THEN DESAT TO 80'S. TELEMETRY READS NSR, HR 90'S. PT HAS PEG TUBE W/ CONTINUOUS FEEDING AT 25 MLS, RESIDUALS CHECKED Q4H W/ NO RESIDUAL NOTED. PEG TUBE ROTATED PER ORDERS. PT REFUSED MOST REPOSITIONING. PT HAS SUPRAPUBIC CATHETER DRAINING TO GRAVITY. CALL LIGHT IN REACH. WILL GIVE REPORT TO ONCOMING NURSE.
--- NOTE | 2021-01-13 19:48 | NUR ---
SHIFT SUMMARY: PATIENT A/OX2-3. MEDICATED FOR LEG/WAIST PAIN WITH FENTANYL AND BACLOFEN WITH GOOD EFFECT, PATIENT ABLE TO SLEEP. TRACH COLLAR IN PLACE. REQUESTED SUCTION APPROX EVERY 2-3 HOURS. MOD AMT THICK WHITE SPUTUM RETURNED. THIS EVENING, SPO2 DECREASED TO 80% AND PATIENT SOUNDED WET. SUCTIONED MOD AMT THICK WHITE SPUTUM AND SPO2 RETURNED TO 90'S. OTHERWISE HE HAS BEEN IN THE 90'S THROUGHOUT THE DAY. ALLEVYN DRESSING PLACED TO BUTTOCKS, PICTURES TAKEN OF OPEN AREA ON BUTTOCKS. TUBE FEEDING INCREASED TO 55 MLS/HR, NO RESIDUALS NOTED. SUPRAPUBIC CATH DRAINING. REPORT GIVEN TO ONCOMING RN.
--- NOTE | 2021-01-14 06:24 | NUR ---
SHIFT SUMMARY PT ALERT, FOLLOWS DIRECTIONS, MOUTHS AND WHISPERS WORDS. SP02>92% W/ TRACH W/ INLINE SUCTION PRN. SUCTIONED MULTIPLE TIMES DURING SHIFT. TELEMETRY READS SR 90'S-110'S. PT C/O OF PAIN "EVERYWHERE" X1 THIS SHIFT, MEDICATED X1 THIS SHIFT PER EMAR. PEG TUBE INFUSING AT 60 MLS/HR W/ ZERO RESIDUALS NOTED. SUPRAPUBIC CATHETER DRAINING TEA, CLOUDY URINE TO GRAVITY. PT HAD ONE CLEAR, LOOSE BM THIS SHIFT. PT WAS REPOSITIONED Q2H. CALL LIGHTIN REACH. WILL GIVE REPORT TO ONCOMING NURSE.
--- NOTE | 2021-01-14 18:18 | NUR ---
NO ACUTE EVENTS T/O MY SHIFT. PT SEEMED TO REST AND SLEEP OFTEN. PT MEDICATED FOR PAIN PER MD ORDERS WHEN NEEDED. NO BM THIS SHIFT, NO C/O NAUSEA, BOWEL TONES ACTIVE. PT SUCTIONED AT TIMES VIA INLINE SUCTION NEEDED, SMALL TO MODERATE AMOUNTS OF WHITE/ALCALA SPUTUM NOTED. TUBE FEEDING INFUSING AT GOAL RATE, 0ML RESIDUALS NOTED. PT HAS BEEN TURNED AND REPOSITIONED FREQUENTLY, PT GIVEN A BED BATH, FRESH LINENS AND EGG CRATE MATTRESS ADDED TO HIS HOSPITAL BED FOR COMFORT. PT STATES EGG CRATE HAS INCREASED HIS COMFORT. VSS. WILL CONTINUE TO MONITOR AND REPORT TO NOC SHIFT RN.
--- NOTE | 2021-01-15 06:09 | NUR ---
SHIFT SUMMARY NO ACUTE CHANGES THIS SHIFT. PT A&OX3. SP02>92% WITH TRACH COLLAR WITH INLINE SUCTION, 8L 02. SUCTIONED SEVERAL TIMES THIS SHIFT. TRACH CARE PERFORMED. ORAL CARE PERFORMED. TELEMETRY READS NSR, HR 90'S. PT C/O OF BACK/LEG PAIN THIS SHIFT, MEDICATED PER EMAR. PT HAS TF INFUSING AT MAX ORDER OF 60 MLS/HR. PT HAD ONE INCONTINENT, CLEAR, JELLY BOWEL MOVEMENT. LINENS CHANGED. SB CATHETER DRAINING YELLOW CLOUDY URINE TO GRAVITY. PT WAS REPOSITIONED Q2H. [facility] WILL GIVE REPORT TO ONCOMING NURSE.
--- NOTE | 2021-01-15 14:10 | NUR ---
PT ARRIVED TO ROOM 329 FROM PCU 11 VIA BED. BEDS SWITCHED OUT, PT REMAINS IN ORIGINAL PCU BED. PT SETTLED IN, SUCTION SET UP IN PLACE AND ATTACHED, TUBE FEEDING CONTINUES T/O , PT TOLERATING. SUPRAPUBIC CATH DRAINING. CALL VAZQUEZ IN REACH, WILL CONTINUE TO MONITOR.
--- NOTE | 2021-01-15 14:20 | NUR ---
TRANSFER TO [facility] FLOOR REPORT GIVEN TO GRAHAM. PT HAS BEEN DOIGN WELL SINCE ASSUMING CARE THIS AM. SUCTIONED x 3 TIMES FOR SMALL AMOUNT OF SECRETIONS. TRACH & PEG TUBE W/ CONT FEEDINGS WNL.
--- NOTE | 2021-01-16 06:09 | NUR ---
SHIFT SUMMARY AOX2-SELF, FOLLOWING DIRECTIONS. FORGETFUL @TIMES. STATED THIS NURSE LOOKS ALOT LIKE MY AUNT, HOWEVER NONE OF MY FAMILY LIVE IN LOCAL AREA. UNABLE TO ANSWER ORIENTATION QUESTIONS CORRECTLY R/T DIFFICULTY c SPEECH. MOUTHS WORDS & DOESN'T TALK MUCH. TRACHE IN PLACE, CHANGED DRESSING & CLEANSED AROUND TRACHE SITE. PREVIOUS DRESSING HAD MODERATE AMOUNT PURULENT DRAINAGE, SKIN AROUND TRACHE IS RED, INFLAMED, IRRITATED LOOKING. SPO2 >90% ON 26% FIO2 HUMIDIFIED O2. PT REQUESTS INTERNAL TRACHE SUCTIONING FREQUENTLY, SM AMOUNT YELLOW THICK MUCUS SUCTIONED. PEG TUBE DRESSING CHANGED & CLEANSED AROUND SITE, RECIEVING CONT TUBE FEEDING @60ML/HR, NO RESIDUAL WHEN CHECKED. ABD DISTENDED, DENIES N/V. SUPERPUBIC [place] DRAINING CLOUDY DARK YELLOW URINE. BLE FLACCID. GROSS MOVEMENT BUE. TURNED & REPOSITIONED PRN. PT HAD 1 LRG CLEAR MUCUS BM THIS SHIFT. MEDICATED 2X c MUSCLE RELAXER, FOR "PRESSURE" PAIN IN BLE. BEDREST. TOUCH CALL LIGHT IN REACH. WCTM.
--- NOTE | 2021-01-16 11:26 | NUR ---
PT MOSTLY NON VERBAL, SOME SHORT WORDS AND QUIET SOUNDS. SOFT TOUGH CALL VAZQUEZ IN REACH, PT USES OCCASIONALLY. FREQUENT REQUESTS FOR SUCTIONING, CONTINUOUS BIOX IN PLACE, SATS REMAINING IN UPPER 90'S THIS AM. TUBE FEEDS TO BE CHANGED TO BOLUS FEEDS PER DIETIAN ORDERS. WAITING FOR CARTONS TO ARRIVED FROM DIET OFFICE. WILL MONITOR
--- NOTE | 2021-01-16 15:37 | NUR ---
Hand off - Midshift Summary Received report from Josselin, rafal care at 1200. Patient lying in bed HOB>30 with tube feeding running. 7L O2 bled through humidified machine, FiO2 26%, continuous biox on with sats < 97%. Patient reports difficulty breathing, but sats are great and patient appears in no apparent distress. After reporting this, patient was found comfortably sleeping. No bowel movements during my care. Suprapubic cath draining to gravity, clear yellow urine with sediments. Patient requesting frequent suctioning. Started bolus feeding/flushing with pump. Per Chris, use pump to assist with bolus feeding until cartons arrive. Report given to Maurice FAIR.
--- NOTE | 2021-01-16 19:30 | NUR ---
PT REMAINS BEDBOUNED, ALERT AND ORIETED X3-4, HOWEVER FRUSTRATED RE COMMUNICATION ABILITY DECREASED BY RECENT TRACH PLACEMENT. PT CONINUES TO PULL O2 OFF TRACH PORT AND STATES "I CANT LIVE LIKE THIS, I WANT A DNR AND A SMOKE, EVEN IF ITS MY LAST ONE." PT WAS TREATED PER EMAR FOR PAIN AND ANXIETY. PT WAS EDUCATED ON HIS O2 NEEDS AND STATES "YOUR LYING." NIGHT NURSE INFORMED ON BEHAVIORAL CHANGES. LINE SL AND WNL. PED TUBE FEEDINGS WITH NO ISSUES THIS SHIFT. STAFF WILL CONTINUE TO MONITOR.
--- NOTE | 2021-01-16 22:22 | NUR ---
RESTLESS/PULLING ON LINES *LATE ENTRY* PT FREQUENTLY PULLING HUMIDIFIED O2 OFF TRACH & ATTEMPTING TO PULL AT TRACH COLLAR, ALONG WITH OTHER LINES. PULLED STAT LOCK OFF FOR [place]. ANXIOUS, RESTLESS, IRRITATED, DEPRESSED. STATING "I JUST WANT A CIGARETTE". "I DONT WANT TO LIVE LIKE THIS". ASKED STAFF TO THROW HIM OUT OF BED. ASKED PT TO LEAVE LINES ALONE MULTIPLE TIMES & PT WAS GIVEN 1MG ATIVAN ON DAY SHIFT W/O ANY RESULTS, INFORMED DR ARVIZU & HE ORDERED SOFT WRIST RESTRAINTS TO PROTECT LINES & TO MONITOR.
--- NOTE | 2021-01-17 07:04 | NUR ---
SHIFT SUMMARY AOX2-SELF, FOLLOWING DIRECTIONS. DIFFICULT TO ASSESS ORIENTATION, MOUTHS WORDS & UNABLE TO UNDERSTAND RESPONSES @TIMES. OTHERTIMES SPEECH CLEAR. PT ANXIOUS, IRRITATED, PULLING @LINES, DEPRESSED ABOUT CURRENT HEALTH SITUATION @BEGINNING OF SHIFT. READ PREVIOUS NOTE, SOFT WRIST RESTRIANTS ORDERED TO PREVENT PT FROM PULLING ON LINES. HAS GROSS MOVEMENT c RUE. KEPT ASKING STAFF TO "THROW ME OUT OF THE BED," "DO YOU HAVE A CIGARETTE?" "I DONT WANT TO LIVE LIKE THIS." TRACH DRESSING PURULENT, CLEANSED AREA & CHANGED DRESSING. SPO2 >92% c HUMIDIFIED 02 AT 26% FIO2, SATS DROP TO LOW 80'S WHEN PT REMOVED HUMIDIFIED O2. MEDICATED 1X c BACLOFEN & 1X c 25MCG FENTANYL FOR PAIN. PT HAD 2 MED BROWN MUCUS BM THIS SHIFT. TURNED & REPOSITIONED PRN. TOUCH CALL LIGHT IN REACH.
--- NOTE | 2021-01-17 18:27 | NUR ---
PT IS OUT OF RESTRAINTS. HE NO LONGER DESIRES TO PULL AT CORDS. HE HAS BEEN PLEASANT AND COOPERATIVE WITH STAFF. PT HAS BEEN SUCTIONED THROUGH OUT THE SHIFT. FEEDS ACCORDING TO SCHEDULE. NO BM THIS SHIFT. PT HAS SLEPT MOST OF THE SHIFT.
[2021-01-18] MEDS ORDERED: LOVA40 PO (04:42)
--- NOTE | 2021-01-18 06:10 | NUR ---
SHIFT SUMMARY- PT. QUADRIPLEGIC, WITH TRACH COLLAR ON HUMIDIFIED O2, AND CONT BIOX. PT. VERY ANXIOUS AND PAINFUL DURING THE NIGHT, MEDICATED PER EMAR WITH MINIMAL EFFECT. AWAKE MOST OF THE NIGHT YELLING OUT, PT. A&O, FORGETFUL. PEG TUBE IN PLACE, BOLUS FEED AND FLUSH GIVEN PER ORDER LAST NIGHT. PT. TOLERATED WELL. REPOSITIONED FOR COMFORT AND PRN. NOTED PT. HAD SMALL AMOUNT OF YELLOW LIQUID STOOL. SUPRAPUBIC CATHETER IN PLACE AND DRAINIG. PT. RESTING QUIETLY IN BED AT THIS TIME, NO APPARENT DISTRESS NOTED. VSS. CALL LIGHT WITHIN REACH AND SIDE RAILS UPX2. WILL CONT TO MONITOR.
--- NOTE | 2021-01-18 18:05 | NUR ---
PATIENT A/O X3, CAN BE FORGETFUL. TOLERATING BOLUS FEEDS THIS SHIFT. S/P CATH TO GRAVITY WITH ADEQUATE U/O. ANXIOUS THIS AFTERNOON, ATIVAN GIVEN TO TREAT WITH SOME RELIEF. TRACH IN PLACE AND HUMIDIFIED FIO2 DOWN TO 26. REQUIRED FREQUENT SUCTIONING AND ORAL CARE. TURNING Q2 HOURS. CONTINUES TO HAVE LOOSE, JELLY LIKE STOOLS. REPORTED PAIN IN BACK TODAY, FENTANYL GIVEN TO TREAT WITH GOOD RELIEF. AWAITING SKILLED NURSING PLACEMENT.
--- NOTE | 2021-01-19 06:44 | NUR ---
SHIFT SUMMARY- PT. AWAKE ALL NIGHT ANXIOUS, C/O PAIN. MEDICATED PER EMAR, WITH MINIMAL EFFECT. SATS APPEAR TO DROP DURING THE NIGHT, FIO2 INCREASED TO 40% PER RT RECOMMENDATION. PT. SUCTIONED SEVERAL TIMES T/O THE NIGHT AND REPOSITIONED FOR COMFORT/PRN. CATHETER PATENT AND DRAINING. TF'S PER ORDER, PT. TOLERATED WELL. VSS. CALL LIGHT WITHIN REACH AND SIDE RAILS UPX2. WILL CONT TO MONITOR.
--- NOTE | 2021-01-19 16:16 | NUR ---
PATIENT VERY ANXIOUS THIS SHIFT, ZYPREXA GIVEN X1 WITH SOME RELIEF. TOLERATING TUBE FEEDS. TRACH IN PLACE, FREQUENT SUCTIONING REQUIRED. HUMIDIFIED FIO2 AT 40% TO MAINTAIN SATS. DRESSING CHANGED TO SMALL ABRASIONS ON BUTTOCKS. LARGE LIQUID BM THIS AFTERNOON. PICC LINE TO LUE WNL AND SL. SP CATH TO GRAVITY WITH ADEQUATE U/O. FENTANYL GIVEN X1 FOR PAIN WITH STATED RELIEF. CONINTUES TO AWAIT PLACEMENT.
--- NOTE | 2021-01-20 04:02 | NUR ---
SHIFT SUMMARY ADMITTED FOR COVID/BACTEREMIA/PNEUMONIA - RESOLVED. FULL CODE. TRACH COLLAR IN PLACE, REINTUBATION FAILED. PEG TUBE IN PLACE FOR BOLLUS FEEDINGS. SUPRAPUBIC CATHETER IN PLACE FOR NEUROGENIC BLADDER. 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 PLAN IS FOR PLACEMENT. PICC LINE IS PATENT. Q6 CHEM-BG'S. LOOSE LIQUID STOOLS REPORTED ON PREVIOUS SHIFT IN LARGE AMOUNTS. PT UNHOOKS HIS OXYGEN FROM HIS TRACH COLLAR WHEN HE WANTS NURSING STAFF TO COME TO HIS ROOM, HE DOES NOT PRESS THE EASY TOUCH CALL BUTTON. SUCTION PRN FOR EXCESS SECRETIONS. CONTINUOUS PULSE OX MONITORING IS IN PLACE.
--- NOTE | 2021-01-21 04:28 | NUR ---
Shift Summary A/Oxself. Patient did not sleep well tonight. Pulling off tracheostomy mulitple times throughout shift. Patient asking for coffee with creamer and breakfast. Educated on NPO status and risk of aspiration. When trach is removed, patient sats drop to low 70's. Remains on 26 FiO2 and humidifier. Suctioned multiple times throughout shift, mod yellow opaque thick secretions. Able to follow commands. Tube feeding completed early in the shift, no residual noted. Medicated for abdominal cramping per EMAR with good effect. Bed alarm on, repositioned per order and as patient allows. WCTM.
--- NOTE | 2021-01-22 05:13 | NUR ---
SHIFT SUMMARY ALERT. FOLLOWS DIRECTIONS. HAS TRACH -MOUTHS WORDS, DIFFICULT TO UNDERSTAND. SPO2 >90% ON 26%FIO2, PT DESATS WHEN HE REMOVES HUMIDIFIED O2. REST OF VSS. REPORTS PAIN c MOVEMENT, GAVE BACLOPHEN 1X. REPORTS "I'M UNABLE TO RELAX, I CAN'T RELAX." ANXIOUS, GAVE ATIVAN 1X PER ORDERS. +2 EDEMA BLE. SUPRAPUBIC CATH PATENT & DRAINING CLOUDY YELLOW URINE. CLEANSED AROUND PEG TUBE & NEW DRESSING APPLIED. BOLUS FEED GIVEN, NO RESIDUAL NOTED. NPO. HYPOACTIVE BT. HAD INCONT BROWN SOFT BM. TURNED & REPOSITIONED PRN. AWAITING PLACEMENT. CALL LIGHT & BED ALARM IN PLACE. WCTM.
--- NOTE | 2021-01-22 07:49 | NUR ---
TRAUMA TO TRACH AT 07 THIS NURSE WAS CALLED INTO PTS RM BY MINE UTILITY OPERATOR. WENT INTO RM & PTS L SIDE CHEST WAS COVERED c EXCESSIVE AMOUNT OF BRIGHT RED BLOODY DRAINAGE. THIS DRAINAGE WAS COMING FROM TRACH. PT HAD PULLED ON TRACH. CALLED RESPIRATORY CARE. APPLIED PRESSURE c GAUZE. CALLED CHARGE NURSE. RT STATED TO CALL DR TO COME SEE PT SINCE TRACH AREA BLEEDING. SPO2 >90%, E/U RESPIRATIONS. DR LEY ORDERED WRIST RESTRAINTS & OT DOSE IM ZYPREXA. DAY NURSE IN RM & AWARE OF ORDERS.
--- NOTE | 2021-01-22 10:31 | NUR ---
Ethics consultation service order received. Electronic health record detail analyzed, case material discussed with entering RN, and initial preliminary findings documented forthwith. 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 He, being the principal, has both threatened and performed trach tube removal, and thus requires ongoing and or episodic soft restraint management to prevent the recurrence of such unsafe, though presumably volitional movements. In reviewing the [facility] Advance Directive instrument, the following facts of influence have been discovered: (a) if the principal becomes permanently unconscious and or his demise is proximate, a physician may recommend that life sustaining measures are omitted or removed from the care plan, (b) if it is evidenced that the principal does not possess testamentary capacity, and is afflicted with an advanced progressive illness, which satisfies the definitions provided in the directive, namely, that he is in a terminal state, and is thought to be consistently and permanently unable to communicate by any discernible means, swallow food or water safely, care for his person, recognize family or friends, and it is clinically improbable that his condition will markedly improve, then in accordance with the preferences stipulated in the directive, in alignment with human dignity, and in support of the patients privilege of choice, aggressive treatment may desist and a hospice election may be pursued. This case directly and explicitly hinges on the question of the principals testamentary capacity. If it is argued that he possesses enough reason to grasp the basic implications of removing his own trach, then his wishes should be honored and a non-aggressive path of care should be adopted. Conversely, if it is established that the principal is incapacitated, and therefore unable to act with cognitive integrity as a viable testator, then the advance care planning instrument should dictate the course and nature of treatment moving forward. Essentially, this would also mean the discontinuance of aggressive therapy. If testamentary capacity is substantiated, the principal retains the right and privilege of vacillating between the two opposing plan of care extremes. Thank you for this consult. Please contact for further discussion or clarification if needed, as this is a somewhat complex situation. Bassem Rivas Th.D.
--- NOTE | 2021-01-22 10:53 | NUR ---
Brief visit to pt's room after case conference. Please see note for that under assessments. Pt sound asleep after medication for anxiety and agitation, after pt's attempted removal of trach appliance early this am. Trach with mist collar on. Pt did not stir. No nonverbal indicators of pain, distress noted at this time. Audible upper airway secretions heard via trach/respirations. Reviewed AD and plan for ethics consult with RN.
--- NOTE | 2021-01-22 14:59 | NUR ---
PAL CARE CASE CONF NOTE: VM left for APD Lori MADRIGAL with request for return call to update on events of today and findings of ethics consult and review of pt's AD. Case conferenced further with Dr Lenin Lieberman and pt's RN Maurice to review plan of care and new orders. New VO for change in code status entered in [facility] and communicated to pt's RN. Will follow closely for continuing eval of s/s and plan of care/goals of care assessment and changes as indicated.
--- NOTE | 2021-01-22 17:21 | NUR ---
Spiritual care note: Case conference with palliative care RN. Apparently, pt is unfriended. No family. David appered to be sleeping soundly. He was in restraints and did not awaken to voice. Per chart, his hindu preference is "other." Sat with Ishmeal mili while providing calm presence of love. I will remain available.
--- NOTE | 2021-01-22 18:13 | NUR ---
PT HAS BEEN IN SOFT WRIST RESTRAINTS SINCE START OF SHIFT AND TO CONTINUE PER MD ORDER RT RISK FOR SELF HARM BY PULLING ON LINES, TRACH AND O2. PT WAS ORIENTED, NOT TO DATE AND TIME THIS SHIFT, IV SALINE LOCKED AND WNL. PT C/O PAIN GENERALIZED AND BLE, TREATED PER EMAR. PT STATED TO SPEECH/LANGUAGE THERAPIST THIS SHIFT "I CANT DO THIS ANYMORE, I JUST WANT TO BE COMFORTABLE." PT CONTINUES ON 9L VIA TRACH COLLAR AND HUMIDIFIED WITH 26 FiO2, SAT AT 87-91 THIS SHIFT WITH MANY DIPS INTO 85, REBOUNDING WITH STIMULATION, RT NOTIFIED. PT CALL LIGHT WITHIN REACH. BED IN LOW POSITION. STAFF WILL CONT TO MONITOR.
--- NOTE | 2021-01-22 19:24 | NUR ---
Update on Case conferences t/o day. Pt's APD CM, Lori Shaw returned my call. I gave her additional update on results of ethics consult and care conferences today. She verbalized understanding of current care complexities & support for ethics consult result, ongoing evaluation of goals of care, code status change and consideration of comfort care. She has been involved in pt's care for "years" and stated that he has always expressed "I'd rather than live in a facility". She has reviewed his advanced directive in the past. We reviewed it again today and she states it is consistent with their many conversations. This was communicated to Dr Phelps. We further discussed plan of care and will revisit in am. Pt has slept t/o most of the day today. He remains in soft wrist restraints for safety at this time. Plan to f/u in early am with pt/Dr/nursing.
--- NOTE | 2021-01-23 06:16 | NUR ---
SHIFT SUMMARY PT HAS BEEN ANXIOUS T/O SHIFT & AND C/O DISCOMFORT, MEDICATED 2X FOR PAIN, 1X FOR ANXIETY, HAS REQUIRED SUCTION SEVERAL TIMES FOR VERY THICK SECRETIONS, REPOS Q2, PT APPEARS COMFORTABLE AT THIS TIME, BED ALARM ACTIVE, WILL CONT TO MONITOR UNTIL REPORT GIVEN TO DAY RN.
--- NOTE | 2021-01-23 09:46 | NUR ---
New comfort care orders - Pal Care visit earlier and case confernece with pt's RN, CM and Dr Phelps. Pt sound asleep when I came by his room at 0830 am. He did not wake to voice or gentle touch. Mist collar to trach. Audible airway secretions noted. Case conferenced with pt's bedside RN to update on events and ethics consult yesterday. He states pt was given ativan once during night for anxiety and has been sleeping for him so far on shift. Discussed plan of care, safety in event of another attempt to self remove trach and later discussed all of above with Dr Phelps and CM, who were able to discuss with pt and confirm that he would like comfort care at this time and does not want to proceed with LTC placement in a facility. VO received and placed for comfort care at this time. Reviewed with RN on current needs for comfort care orders. VM left for Ivonne re: updated plan of care. Spoke with Laboratory Chemical Assistant to request cont visits. Updated Ethics Chair. Will reassess for s/s. Dr Phelps to discuss deflating trach to prevent self harm with crab butcher for best plan of care in regard to trach management. Pt could not confirm that he wanted it fully removed this am when asked.
--- NOTE | 2021-01-23 15:01 | NUR ---
Pal Care Comfort care visit - Brief visit to assess s/s. Pt sleeping. He appears comfortable and without distress at this time. Case conferenced with his RN on plan of care.
--- NOTE | 2021-01-23 15:30 | NUR ---
Pal Care note: Pt's APD worker returned call and was given a full update on transition to comfort care. She is in agreement and very appreciative of the care pt has received. She has tried to reach the CG that pt requested she contact but he has not returned calls. Pt considered this CG his friend and wanted to see him Lori verbalized desire to visit pt since he has no family or friends visiting. She will ask him if he would like her to contact his two other caregivers that she does have reliable contact info for, in case he would like to see them. RN updated on APD-CW plan to visit today. Lori aware that pt may sleep thru a visit as he has slept much of today and yesterday.
--- NOTE | 2021-01-23 16:07 | NUR ---
ACCIDENTLY ENTER D/C ORDER FOR SS INSULIN UNDER Erasmo LEY MD, ORDER WAS FROM ACE LEY MD.
--- NOTE | 2021-01-23 18:25 | NUR ---
SHIFT SUMMARY. PT TRANSITIONED TO COMFORT CARE THIS AM, RESTRAINTS D/C'D SHORTLY AFTER ORDER INITIATED. PT EDUCATED ON IMPORTANCE OF LEAVING TRACH TUBE IN PLACE, PT ACKNOWLEGED UNDERSTANDING AND HAS LEFT IT IN PLACE. WHILE REPOSITIONING PT DURING BOOST TRACH WAS ACCIDENTLY REMOVED, RT NOTIFIED AND RESPONDED QUICKLY TO REINSERT, TRACH CARE PERFORMED AT THAT TIME. PT APPEARED TO SLEEP DURING MOST OF THE SHIFT, PT MEDICATED WITH ATIVAN AND ROXONOL FOR COMFORT, NO S/SX OF DISTRESS OR DISCOMFORT. NO OTHER CHANGES OR CONCERNS.
--- NOTE | 2021-01-23 18:32 | NUR ---
LATE ENTRY. TRACH SUCTIONED PERIODICALLY THROUGHOUT SHIFT.
--- NOTE | 2021-01-23 18:47 | NUR ---
Spiritual care note: Pt appeared to be sleeping peaceful at each attempt at visit today. He appears comfortable and well cared-for by nursing. No family/friends present. I will remain available.
--- NOTE | 2021-01-23 21:57 | NUR ---
Day THOMAS Goldberg had medicated PT for anxiety prior to leaving resting quietly
--- NOTE | 2021-01-24 04:51 | NUR ---
70 year old Male quadraplegic since 2001 who was admitted 12/21/20 with Covid 19 had trach palced for prolonged ventaltion & gtube for nutritional support this stay. Changed to comfort care yesterday DNR status. PT medicated several times for pain & anxiety with helpful effect. SP cath patent, NPO with meds via gtube. Able to communicate speaks in whispers.
--- NOTE | 2021-01-24 12:18 | NUR ---
Pal Care Comfort care visit - Pt sleeping as he has been each time I visit. He appears very relaxed and comfortable outside of increased resp effort. Will check in with RN on any concerns/issues and plan of care.
--- NOTE | 2021-01-24 18:15 | NUR ---
PT RESTING IN BED AND SLEPT MOST THIS SHIFT, MAKING NO COMPLAINTS AT THIS TIME. TREATED PAIN PER EMAR ONCE THIS SHIFT "HALF DOSE" PER PT REQUEST. COMFORT ASSESSED Q2, BED IN LOW POSITION AND CALL LIGHT WITHIN REACH. WILL CONTINUE TO MONITOR.
--- NOTE | 2021-01-24 19:23 | NUR ---
PATIENT REQUEST... PT STATES HE ONLY WANTS HIS TRACH REMOVED IF HE CAN SUSTAIN LIFE AFTER, HE WOULD LIKE HIS TUBE FEEDINGS TO CONTINUE AND THAT HE ACCIDENTALLY PULLED ON HIS TRACH. HE DOES STATE HE WOULD LIKE TO CONTINUE ON COMFORT CARE WITH A DNR STATUS. PT WOULD ALSO LIKE TO EAT A BANANNA. TOLERATED PO FLUIDS BY THE SIP WELL.
--- NOTE | 2021-01-25 05:41 | NUR ---
PT had been NPO but desired oral intake lemonaide & magic cup were offered as per PT's desire. PT was CO not being able to breathe despite Airvoe heated oxygen to trach 9 l .Trach suction completed. Medicated for lt leg pain and air hunger with helpful effect. PT observed to be having minimal respirations & prounced no resp no pulse at 505 am. Space SchedulerPaige Luevano verified as 2nd RN .Caregiver & MD notified of expiration.
== END 2021-01-25 05:05 | DRG 3 ==
LOC: ER 13:27 → ICUW 17:20 → PCU 01-10 21:01 → MEDS 01-15 14:05
PROVIDERS: Emergency Medicine; Family Medicine; Internal Medicine; Internal Medicine Critical Care Medicine; Internal Medicine Pulmonary Disease; ADMIT Internal Medicine
PROC: 8E0ZXY6 Isolation (ICD-10-PCS; principal; 2020-12-21)
PROC: 5A1955Z Respiratory Ventilation, Greater than 96 Consecutive Hours (ICD-10-PCS; 2020-12-21)
PROC: XW033E5 Introduction of Remdesivir Anti-infective into Peripheral Vein, Percutaneous Approach, New Technology Group 5 (ICD-10-PCS; 2020-12-21)
PROC: 3E0333Z Introduction of Anti-inflammatory into Peripheral Vein, Percutaneous Approach (ICD-10-PCS; 2020-12-21)
PROC: 0BH18EZ Insertion of Endotracheal Airway into Trachea, Via Natural or Artificial Opening Endoscopic (ICD-10-PCS; 2020-12-21)
PROC: 0D968ZZ Drainage of Stomach, Via Natural or Artificial Opening Endoscopic (ICD-10-PCS; 2020-12-21)
PROC: 0B113F4 Bypass Trachea to Cutaneous with Tracheostomy Device, Percutaneous Approach (ICD-10-PCS; 2020-12-21)
PROC: 0B9H8ZX Drainage of Lung Lingula, Via Natural or Artificial Opening Endoscopic, Diagnostic (ICD-10-PCS; 2020-12-21)
PROC: 3E033XZ Introduction of Vasopressor into Peripheral Vein, Percutaneous Approach (ICD-10-PCS; 2020-12-21)
PROC: 02HV33Z Insertion of Infusion Device into Superior Vena Cava, Percutaneous Approach (ICD-10-PCS; 2020-12-21)
DX: A41.89 Other specified sepsis (principal); U07.1 COVID-19; J96.21 Acute and chronic respiratory failure with hypoxia; R65.21 Severe sepsis with septic shock; J12.82 Pneumonia due to coronavirus disease 2019; G82.50 Quadriplegia, unspecified; J96.22 Acute and chronic respiratory failure with hypercapnia; J15.211 Pneumonia due to Methicillin susceptible Staphylococcus aureus; I50.32 Chronic diastolic (congestive) heart failure; I31.3 Pericardial effusion (noninflammatory); J44.0 Chronic obstructive pulmonary disease with (acute) lower respiratory infection; N39.0 Urinary tract infection, site not specified; E66.9 Obesity, unspecified; Z78.1 Physical restraint status; Z66 Do not resuscitate; E87.6 Hypokalemia; I44.1 Atrioventricular block, second degree; E11.65 Type 2 diabetes mellitus with hyperglycemia; A41.01 Sepsis due to Methicillin susceptible Staphylococcus aureus; B96.5 Pseudomonas (aeruginosa) (mallei) (pseudomallei) as the cause of diseases classified elsewhere; Z51.5 Encounter for palliative care; G47.33 Obstructive sleep apnea (adult) (pediatric); G47.00 Insomnia, unspecified; F32.9 Major depressive disorder, single episode, unspecified; S14.109D Unspecified injury at unspecified level of cervical spinal cord, subsequent encounter; F17.210 Nicotine dependence, cigarettes, uncomplicated; Z91.040 Latex allergy status; Z87.440 Personal history of urinary (tract) infections; Z86.718 Personal history of other venous thrombosis and embolism; Z98.1 Arthrodesis status; Z98.890 Other specified postprocedural states; Z88.1 Allergy status to other antibiotic agents; Z88.2 Allergy status to sulfonamides; Z88.6 Allergy status to analgesic agent; Z79.82 Long term (current) use of aspirin; Z79.84 Long term (current) use of oral hypoglycemic drugs; Z79.899 Other long term (current) drug therapy; W18.39XD Other fall on same level, subsequent encounter
CPT/HCPCS: 31500; 31502; 31720; 36415; 36556; 36569; 36600; 49440; 51702; 71045; 71260; 80048; 80053; 80069; 80076; 80202; 81001; 82330; 82803; 82947; 83735; 83880; 84100; 84132; 84443; 84484; 85025; 85027; 85610; 87040; 87070; 87071; 87077; 87086; 87147; 87186; 87205; 92523; 92526; 92610; 93005; 93010; 93306; 93312; 93325; 94002; 94003; 94640; 94660; 94667; 94668; 94762; 96365-59; 96366-59; 99152; 99153; 99291-25; A9270; C1751; C1769; C1887; C9113; J0171; J0330; J0461; J0690; J1100; J1265; J1630; J1650; J1815; J1940; J2060; J2250; J2543; J2704; J2920; J3010; J3370; J3480; J7030; J7040; J7050; J7060; Q9967